=== PATIENT | female | born 2000 | race African-American/Black ===

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

== ENCOUNTER 2023-01-17 21:02 | Emergency (ER) | payer SELFPAY ==
--- OUTSIDE RECORDS SUMMARY | 2023-01-17 21:05 | XMS REPORT | Continuity of Care Document ---
:2000 Author Organization [facility] t Address [address] [facility] [address] [place] [id number] Care Team Providers Name Role Phone Rolf Cancino Primary Care Physician Unavailable STEPHY WIGGINS Attending Clinician Unavailable Stephy Wiggins MD Attending Clinician ENA ROWE Attending Clinician Unavailable Hodan Mabry RN Attending Clinician Unavailable Ena Rowe PA-C Attending Clinician Nurse, [facility] Attending Clinician Unavailable Payers Payer Name Policy Type Policy Number Effective Date Expiration Date Sb CISNEROS [id number] 2020 HEALTH 00:00:00 Problems Condition Condition Condition Status Onset Resolution Last Treating Co mments Source Name Details Category Date Date Treatment Clinician Date Well woman Well woman Disease Active U nivers exam (no exam (no 10-15 ity of [place] exam[place] van[place] exam[place] 00 [facility] Nexplanon Nexplanon Disease Active Uni vers in place in place 10-15 ity of 00:00: [place] 00 [facility] Allergies, Adverse Reactions, Alerts Allergy Allergy Status Severity Reaction(s) Onset Inactive Treating Comm ents Source Name Type Date Date Clinician NO KNOWN Drug Active Univers ALLERGIE Class ity of S [facility] Social History Social Habit Start Date Stop Date Quantity Comments Source Gender identity Universit y [facility] Sexual orientation Univer sity of [facility] History of tobacco Passive smoker Un iversity of use [facility] Alcohol Comment 2022-11-28 2022-11-28 quit Universit y of 00:00:00 00:00:00 [facility] Exposure to 2022-06-23 2022-07-03 Not sure University SARS-CoV-2 (event) 00:00:00 11:46:00 [facility] History of Social 2021-11-22 2021-11-22 Univers ity of function 00:00:00 00:00:00 [facility] Tobacco use and 2020-10-15 2020-10-15 Smokeless Universit y of exposure 00:00:00 00:00:00 tobacco non-user [facility] Alcohol intake 2020-10-15 2020-10-15 Ex-drinker [facility] 00:00:00 00:00:00 (finding) [facility] Sex Assigned At 2000 2002 Universit y of 00:00:00 00:00:00 [facility] Smoking Status Start Date Stop Date Source Never smoked tobacco [facility] Medications Ordered Filled Start Stop Current Ordering Indication Dosage Frequency Signature Comments Components Source Medication Medication Date Date Medication? Clinician (SIG) Name Name metroNIDAZO 2022- Yes [id number] 500mg Take 1 Univers LE (FLAGYL) 8- 08-25 tablet by it y of 500 mg 00:00: 04:59 mouth in [place] tablet 00 :00 the Medical morning Branch and 1 tablet in the evening. Do all this for 7 days. metroNIDAZO 0 Yes [id number] 500mg Take 1 Univers LE 500 mg 3-21 tablet by ity o f tablet 00:00: mouth [place] 00 every 12 Medical (twelve) Branch hours. metroNIDAZO 2022-0 Yes [id number] 500mg Take 1 Univers LE 500 mg 3-21 tablet by ity o f tablet 00:00: mouth [place] 00 every 12 Medical (twelve) Branch hours. metroNIDAZO 2022-0 Yes [id number] 500mg Take 1 Univers LE 500 mg 3-21 tablet by ity o f tablet 00:00: mouth [place] 00 every 12 Medical (twelve) Branch hours. metroNIDAZO 2022-0 Yes [id number] 500mg Take 1 Univers LE 500 mg 3-21 tablet by ity o f tablet 00:00: mouth [place] 00 every 12 Medical (twelve) Branch hours. metroNIDAZO 2022-0 Yes [id number] 500mg Take 1 Univers LE 500 mg 3-21 tablet by ity o f tablet 00:00: mouth [place] 00 every 12 Medical (twelve) Branch hours. metroNIDAZO 2022-0 Yes [id number] 500mg Take 1 Univers LE 500 mg 3-21 tablet by ity o f tablet 00:00: mouth [place] 00 every 12 Medical (twelve) Branch hours. fluconazole 2022-0 2022- No [id number] 150mg Take 1 Univers 150 mg 3-21 03-22 tablet by [place] of tablet 00:00[place] 04[place]59 [place] now for 1 Medical dose. Branch Dose 2021-0 No 500 Unknown 11-29 00:00: 00 Dose 2021-0 No 600 Unknown 11-29 00:00: 00 doxycycline 2021-0 Yes [id number] 100mg Take 1 Univers hyclate 100 8-10 tablet by [place] mg [place] and 1 tablet in the evening. doxycycline 2021-0 Yes [id number] 100mg Take 1 Univers hyclate 100 8-10 tablet by [place] of mg tablet [place] and 1 tablet in the evening. doxycycline 2021-0 Yes [id number] 100mg Take 1 Univers hyclate 100 8-10 tablet by [place] of mg tablet [place] [facility] and 1 tablet in the evening. doxycycline 2021-0 Yes [id number] 100mg Take 1 Univers hyclate 100 8-10 tablet by [place] of mg tablet [place] [facility] and 1 tablet in the evening. doxycycline 2021-0 Yes [id number] 100mg Take 1 Univers hyclate 100 8-10 tablet by [place] of mg tablet [place] [facility] and 1 tablet in the evening. doxycycline 2021-0 2022- No [id number] 100mg Take 1 Univers hyclate 100 8-10 03-20 tablet by it y of mg tablet 00:00: 00:00 mouth [place] 00 :00 the Medical morning Branch and 1 tablet in the evening. doxycycline 2021-0 2023- No [id number] 100mg Take 1 Univers hyclate 100 8-10 03-20 tablet by it y of mg tablet 00:00: 00:00 mouth in [place] 00 :00 the Medical morning Branch and 1 tablet in the evening. doxycycline 2-0 3- No [id number] 100mg Take 1 Univers hyclate 100 8-10 03-20 tablet by it y of mg tablet 00:00: 00:00 mouth in [place] 00 :00 the Medical morning Branch and 1 tablet in the evening. doxycycline 2-0 3- No [id number] 100mg Take 1 Univers hyclate 100 8-10 03-20 tablet by it y of mg tablet 00:00: 00:00 mouth [place] 00 :00 the Medical morning Branch and 1 tablet in the evening. Nexplanon 2022-0 No 1mg 68 mg 6-28 subdermal 00:00: implant 00 Dose 2-0 No Unknown 6-28 00:00: 00 Nexplanon 2022-0 No 1mg 68 mg 6-28 subdermal 00:00: implant 00 Dose 2-0 No Unknown 6-28 00:00: 00 TAKE 1 2-0 No TABLET BY 6-28 MOUTH EVERY 00:00: 6 HOURS 00 NEEDED FOR PAIN Dose 2-0 No Unknown 6-28 00:00: 00 Dose 2-0 No Unknown 6-28 00:00: 00 TAKE 1 2-0 No TABLET BY 6-28 MOUTH EVERY 00:00: 6 HOURS 00 NEEDED FOR PAIN TAKE 1 2-0 No TABLET BY 6-28 MOUTH EVERY 00:00: 6 HOURS 00 NEEDED FOR PAIN Dose 2-0 No Unknown 6-28 00:00: 00 Dose 2022-0 No Unknown 6-28 00:00: 00 TAKE 1 2-0 No TABLET BY 6-28 MOUTH EVERY 00:00: 6 HOURS 00 NEEDED FOR PAIN TAKE 1 2-0 No TABLET BY 6-24 MOUTH EVERY 00:00: 6 HOURS 00 NEEDED FOR PAIN Dose 2-0 No Unknown 6-24 00:00: 00 TAKE 1 2022-0 No TABLET BY 6-24 MOUTH EVERY 00:00: 6 HOURS 00 NEEDED FOR PAIN Dose 2-0 No Unknown 6-24 00:00: 00 TAKE 1 2022-0 No TABLET BY 6-21 MOUTH EVERY 00:00: 6 HOURS 00 NEEDED FOR PAIN TAKE 1 2021-0 No CAPSULE BY 6-21 MOUTH THREE 00:00: TIMES DAILY 00 TAKE 1 2021-0 No TABLET BY 6-21 MOUTH EVERY 00:00: 6 HOURS 00 NEEDED FOR PAIN TAKE 1 2021-0 No CAPSULE BY 6-21 MOUTH THREE 00:00: TIMES DAILY 00 amoxicillin 2020-0 No 1mg 875 mg 3-12 tablet 00:00: 00 amoxicillin 2020-0 No 1mg 875 mg 3-12 tablet 00:00: 00 ibuprofen 2019-1 No 1mg 600 mg 1-20 tablet 00:00: 00 ibuprofen 2019-1 No 1mg 600 mg 1-20 tablet 00:00: 00 Nexplanon 2019-0 No 1mg 68 mg 6-17 subdermal 00:00: implant 00 Nexplanon 2019-0 No 1mg 68 mg 6-17 subdermal 00:00: implant 00 Immunizations Ordered Filled Date Status Comments Source Immunization Name Immunization Name HPV9 2022-05-25 Completed University of 00:00:00 [facility] HPV9 2022-05-25 Completed University of 00:00:00 [facility] HPV9 2022-05-25 Completed University of 00:00:00 [facility] HPV9 2022-05-25 Completed University of 00:00:00 [facility] HPV9 2022-05-25 Completed University of 00:00:00 [facility] HPV9 2022-05-25 Completed University of 00:00:00 [facility] HPV9 2022-05-25 Completed University of 00:00:00 [facility] HPV9 2022-05-25 Completed University of 00:00:00 [facility] HPV9 2022-01-26 Completed University of 00:00:00 [facility] HPV9 2022-01-26 Completed University of 00:00:00 [facility] HPV9 2022-01-26 Completed University of 00:00:00 [facility] HPV9 2022-01-26 Completed University of 00:00:00 [facility] HPV9 2022-01-26 Completed University of 00:00:00 [facility] HPV9 2022-01-26 Completed University of 00:00:00 [facility] HPV9 2022-01-26 Completed University of 00:00:00 [facility] HPV9 2022-01-26 Completed University of 00:00:00 [facility] HPV9 2022-01-26 Completed University of 00:00:00 [facility] HPV9 2022-01-26 Completed University of 00:00:00 [facility] HPV9 2022-01-26 Completed University of 00:00:00 [facility] HPV9 2021-11-22 Completed University of 00:00:00 [facility] HPV9 2021-11-22 Completed University of 00:00:00 [facility] HPV9 2021-11-22 Completed University of 00:00:00 [facility] HPV9 2021-11-22 Completed University of 00:00:00 [facility] HPV9 2021-11-22 Completed University of 00:00:00 [facility] HPV9 2021-11-22 Completed University of 00:00:00 [facility] HPV9 2021-11-22 Completed University of 00:00:00 [facility] HPV9 2021-11-22 Completed University of 00:00:00 [facility] HPV9 2021-11-22 Completed University of 00:00:00 [facility] HPV9 2021-11-22 Completed University of 00:00:00 [facility] HPV9 2021-11-22 Completed University of 00:00:00 [facility] HPV9 2021-11-22 Completed University of 00:00:00 [facility] HPV9 Unknown Completed [facility] HPV9 Unknown Completed [facility] HPV9 Unknown Completed [facility] HPV9 Unknown Completed [facility] HPV9 Unknown Completed [facility] HPV9 Unknown Completed [facility] HPV9 Unknown Completed [facility] HPV9 Unknown Completed [facility] HPV9 Unknown Completed [facility] HPV9 Unknown Completed [facility] HPV9 Unknown Completed [facility] Vital Signs Vital Name Observation Time Observation Value Comments Source Systolic blood 2022-11-28 14:26:00 116 mm[Hg] Univer sity of pressure [facility] Diastolic blood 2022-11-28 14:26:00 79 mm[Hg] Unive rsity of pressure [facility] Heart rate 2022-11-28 14:26:00 71 /min Universi ty [facility] Body temperature 2022-11-28 14:26:00 36.67 Betty [facility] [place] [facility] Body height 2022-11-28 14:26:00 167.6 cm [facility] [place] [facility] Body weight 2022-11-28 14:26:00 53.162 kg [facility] [place] [facility] BMI 2022-11-28 14:26:00 18.92 kg/m2 [facility] [place] [facility] Systolic blood 2022-07-04 14:52:00 117 mm[Hg] Univer sity of pressure [place] [facility] Diastolic blood 2022-07-04 14:52:00 80 mm[Hg] Unive rsity of pressure [place] [facility] Heart rate 2022-07-04 14:52:00 78 /min [facility] [place] [facility] Body temperature 2022-07-04 14:52:00 36.72 Betty [facility] [place] [facility] Respiratory rate 2022-07-04 14:52:00 18 /min Univ [facility] [place] [facility] Body height 2022-07-04 14:52:00 167.6 cm [facility] [place] [facility] Systolic blood 2022-05-25 14:10:00 114 mm[Hg] Univer sity of pressure [place] [facility] Diastolic blood 2022-05-25 14:10:00 72 mm[Hg] Unive rsity of pressure [place] [facility] Heart rate 2022-05-25 14:10:00 70 /min [facility] [place] [facility] Body temperature 2022-05-25 14:10:00 36.78 Betty [facility] [place] [facility] Body height 2022-05-25 14:10:00 167.6 cm [facility] [place] [facility] Body weight 2022-05-25 14:10:00 55.702 kg [facility] [place] [facility] BMI 2022-05-25 14:10:00 19.82 kg/m2 [facility] [place] [facility] Systolic blood 2022-02-02 16:28:00 119 mm[Hg] Univer sity of pressure [place] [facility] Diastolic blood 2022-02-02 16:28:00 80 mm[Hg] Unive rsity of pressure [place] [facility] Heart rate 2022-02-02 16:28:00 70 /min [facility] [place] [facility] Body temperature 2022-02-02 16:28:00 36.72 Betty Univ ersity of [facility] Respiratory rate 2022-02-02 16:28:00 18 /min Univ [facility] [place] [facility] [place] Body height 2022-02-02 16:28:00 167.6 cm [facility] [place] [facility] [place] Body weight 2022-02-02 16:28:00 59.784 kg [facility] [place] [facility] [place] BMI 2022-02-02 16:28:00 21.27 kg/m2 Universi ty [facility] Systolic blood 2022-01-26 18:42:00 112 mm[Hg] Univer sity of [facility] [place] [facility] Diastolic blood 2022-01-26 18:42:00 73 mm[Hg] Unive rsity of pressure [facility] Heart rate 2022-01-26 18:42:00 65 /min [facility] [place] [facility] [place] Body temperature 2022-01-26 18:42:00 36.83 Betty [facility] Res[facility] rate 2022-01-26 18:42:00 16 /min [facility] [place] Body height 2022-01-26 18:42:00 167.6 cm [facility] [place] [facility] Body weight 2022-01-26 18:42:00 59.512 kg Universi ty [facility] [place] BMI 2022-01-26 18:42:00 21.18 kg/m2 Universi ty [facility] BP Systolic 2021-10-12 11:33:00 126 mm[Hg] BP Diastolic 2021-10-12 11:33:00 85 mm[Hg] Weight Measured 2021-10-12 11:33:00 131.40 pounds Height Measured 2021-10-12 11:33:00 66.54 inches Body Temperature 2021-10-12 11:33:00 98.20 degrees Heart Rate 2021-10-12 11:33:00 77.00 /min Respiratory Rate 2021-10-12 11:33:00 18.00 /min BP Systolic 2021-10-05 14:45:00 115 mm[Hg] BP Diastolic 2021-10-05 14:45:00 74 mm[Hg] Weight Measured 2021-10-05 14:45:00 129.80 pounds Height Measured 2021-10-05 14:45:00 66.54 inches Body Temperature 2021-10-05 14:45:00 98.40 degrees Heart Rate 2021-10-05 14:45:00 76.00 /min Respiratory Rate 2021-10-05 14:45:00 18.00 /min BP Systolic 2021-03-19 09:08:00 BP Diastolic 2021-03-19 09:08:00 Weight Measured 2021-03-19 09:08:00 135.00 pounds Height Measured 2021-03-19 09:08:00 66.54 inches Body Temperature 2021-03-19 09:08:00 Heart Rate 2021-03-19 09:08:00 Respiratory Rate 2021-03-19 09:08:00 BP Systolic 2019-06-27 13:02:00 114 mm[Hg] BP Diastolic 2019-06-27 13:02:00 82 mm[Hg] Weight Measured 2019-06-27 13:02:00 130.20 pounds Height Measured 2019-06-27 13:02:00 66.54 inches Body Temperature 2019-06-27 13:02:00 98.90 degrees Heart Rate 2019-06-27 13:02:00 100.00 /min Respiratory Rate 2019-06-27 13:02:00 16.00 /min BP Systolic 2019-03-25 13:49:00 120 mm[Hg] BP Diastolic 2019-03-25 13:49:00 78 mm[Hg] Weight Measured 2019-03-25 13:49:00 131.80 pounds Height Measured 2019-03-25 13:49:00 65.00 inches Body Temperature 2019-03-25 13:49:00 98.10 degrees Heart Rate 2019-03-25 13:49:00 77.00 /min Respiratory Rate 2019-03-25 13:49:00 17.00 /min BP Systolic 2019-03-06 16:59:00 113 mm[Hg] BP Diastolic 2019-03-06 16:59:00 80 mm[Hg] Weight Measured 2019-03-06 16:59:00 133.40 pounds Height Measured 2019-03-06 16:59:00 65.00 inches Body Temperature 2019-03-06 16:59:00 98.30 degrees Heart Rate 2019-03-06 16:59:00 85.00 /min Respiratory Rate 2019-03-06 16:59:00 16.00 /min BP Systolic 2018-10-01 10:09:00 102 mm[Hg] BP Diastolic 2018-10-01 10:09:00 73 mm[Hg] Weight Measured 2018-10-01 10:09:00 135.40 pounds Height Measured 2018-10-01 10:09:00 65.35 inches Body Temperature 2018-10-01 10:09:00 97.60 degrees Heart Rate 2018-10-01 10:09:00 75.00 /min Respiratory Rate 2018-10-01 10:09:00 16.00 /min BP Systolic 2018-09-24 16:11:00 104 mm[Hg] BP Diastolic 2018-09-24 16:11:00 70 mm[Hg] Weight Measured 2018-09-24 16:11:00 135.80 pounds Height Measured 2018-09-24 16:11:00 65.35 inches Body Temperature 2018-09-24 16:11:00 97.90 degrees Heart Rate 2018-09-24 16:11:00 81.00 /min Respiratory Rate 2018-09-24 16:11:00 16.00 /min BP Systolic 2018-06-08 16:11:00 107 mm[Hg] BP Diastolic 2018-06-08 16:11:00 71 mm[Hg] Weight Measured 2018-06-08 16:11:00 135.40 pounds Height Measured 2018-06-08 16:11:00 65.35 inches Body Temperature 2018-06-08 16:11:00 98.20 degrees Heart Rate 2018-06-08 16:11:00 82.00 /min Respiratory Rate 2018-06-08 16:11:00 16.00 /min BP Systolic 2018-05-28 15:25:00 107 mm[Hg] BP Diastolic 2018-05-28 15:25:00 73 mm[Hg] Weight Measured 2018-05-28 15:25:00 133.00 pounds Height Measured 2018-05-28 15:25:00 65.35 inches Body Temperature 2018-05-28 15:25:00 99.50 degrees Heart Rate 2018-05-28 15:25:00 75.00 /min Respiratory Rate 2018-05-28 15:25:00 16.00 /min Procedures Procedure Date / Time Performed Performing Clinician Sourc e POCT URINALYSIS W/O 2022-07-04 00:00:00 Ena Rowe [facility] GARDASIL 9 (HPV 9V) 2022-05-25 14:12:46 Ike Wigginsen [facility] GARDASIL 9 (HPV 9V) 2022-01-26 18:59:55 Oneal Stephy [facility] Plan of Care Planned Activity Planned Date Details Comments Source Goal Plan of Care Note [code = 88347-7] Goal Plan of Care Note [code = 98003-7] Goal Plan of Care Note [code = 51740-7] Goal Plan of Care Note [code = 35742-8] Goal Plan of Care Note [code = 07039-5] Goal Plan of Care Note [code = 67781-6] Goal Plan of Care Note [code = 69907-9] Goal Plan of Care Note [code = 95471-3] Goal Plan of Care Note [code = 04775-8] Goal Plan of Care Note [code = 34867-7] Goal Plan of Care Note [code = 17471-9] Goal Plan of Care Note [code = 26601-4] Goal Plan of Care Note [code = 59513-8] Goal Plan of Care Note [code = 82124-3] Goal Plan of Care Note [code = 98375-8] Goal Plan of Care Note [code = 51723-4] Goal Plan of Care Note [code = 72452-8] Goal Plan of Care Note [code = 04156-2] Goal Plan of Care Note [code = 00712-4] Goal Plan of Care Note [code = 53845-4] Goal Plan of Care Note [code = 87749-7] Goal Plan of Care Note [code = 30281-3] Goal Plan of Care Note [code = 41131-5] Goal Plan of Care Note [code = 77599-0] Goal Plan of Care Note [code = 90723-4] Goal Plan of Care Note [code = 66401-4] Goal Plan of Care Note [code = 45518-4] Goal Plan of Care Note [code = 70554-6] Goal Plan of Care Note [code = 00977-8] Goal Plan of Care Note [code = 05551-0] Goal Plan of Care Note [code = 98570-4] Goal Plan of Care Note [code = 40587-5] Goal Plan of Care Note [code = 74887-3] Goal Plan of Care Note [code = 87890-6] Goal Plan of Care Note [code = 20783-6] Goal Plan of Care Note [code = 30989-2] Goal Plan of Care Note [code = 78504-4] Goal Plan of Care Note [code = 22942-6] Encounters Start End Encounter Admission Attending Care Care Encounter Source Date/Time Date/Time Type Type Clinicians Facility Department ID 2022-12-19 2022-12-19 Outpatient S[facility] [id number] Tk 15:01:26 15:01:26 0904 F Neftaly 2022-12-01 2022-12-01 Case Ike Wigginsen [facility] [id number] Univers 00:00:00 00:00:00 Management Romulo FUENTES [id number] ity of [facility] [id number] [id number] Mt dical NAL [address] [place] [address] 2022-11-28 2022-11-28 Outpatient R WIGGINSIKEEN [facility] [id number] Univers 09:30:00 09:38:27 ity of [facility] 2022-11-28 2022-11-28 Office Stephy Wiggins [facility] [id number] Univers 09:30:00 09:38:27 Visit Romulo FUENTES [id number] i ty of [facility] [id number] [id number] Mt dical NAL [address] [place] [address] 2022-07-06 2022-07-06 Patient Clotilde [facility] [id number] Univers 00:00:00 00:00:00 Secure Msg Hodan OLMOS 350.1.13.10 [place] [facility] [id number] [address] 2022-07-05 2022-07-05 Case Adama [facility] [id number] Univers 00:00:00 00:00:00 Management Ena FUENTES 350.1.13.10 ity of [place] [id number] Mt dic[address] 2022-07-05 2022-07-05 Patient Adama [facility] [id number] Univers 00:00:00 00:00:00 Secure Msg Ena FUENTES 350.1.13.10 ity of [facility] [place] [id number] [address] 2022-07-04 2022-07-04 Outpatient R ADAMA [facility] [id number] Univers 10:00:00 10:53:46 ENA tidwell [facility] 2022-07-04 2022-07-04 Office Adama [facility] [id number] Univers 10:00:00 10:53:46 Visit Ena FUENTES 350.1.13.10 i ty of [facility] [place] [id number] [address] 2022-07-04 2022-07-04 Patient Adama [facility] [id number] Univers 00:00:00 00:00:00 Secure Msg Ena FUENTES 350.1.13.10 ity of [facility] [id number] [id number] Mt dic[address] 2022-05-25 2022-05-25 Nurse Nurse, [facility] [id number] Univers 08:00:00 08:15:00 Visit AriasEna thomas 350.1.13.10 ity of [facility] 4[place] [id number] [address] 2022-05-25 2022-05-25 Outpatient R ADAMA [facility] [id number] Univers 08:00:00 08:00:00 ENA tidwell [facility] 2022-05-252022-05-25 Outpatient R [facility] [id number] Univers 08:00:00 08:00:00 diann [facility] 2022-02-02 2022-02-02 Office Adama [facility] [id number] Univers 13:00:00 13:00:00 Visit Ena FUENTES 350.1.13.10 i ty [facility] 4[place] [id number] Mt dical [address] 2022-02-02 2022-02-02 [facility] [id number] Univers 13:00:00 11:48:47 ENA tidwell [facility] 2022-02-01 2022-02-01 Patient Stephy Wiggins [facility] [id number] Univers 00:00:00 00:00:00 Secure Msg Romulo FUENTES 350.1.13.10 ity [facility] 4[place] [id number] Mt dic[address] 2022-01-26 2022-01-26 [facility] [id number] Univers 14:00:00 14:00:00 ENA tidwell [facility] 2022-01-26 2022-01-26 Nurse Nurse, [facility] [id number] Univers 14:00:00 14:00:00 Visit Ena Rowe 350.1.13.10 itcandido [facility] 4[place] [id number] Mt dical NAL [address] [place] [address] 2022-01-24 2022-01-24 Outpatient R [facility] [id number] Univers 08:00:00 [facility] 2021-11-29 Outpatient [id number] 00:00:00 00:00:00 Visit [id number] 2021-11-25 2021-11-25 Patient Stephy Wiggins [facility] [id number] Univers 00:00:00 00:00:00 Secure Msg Cam [place] [id number] ity [place] [id number] Mt dical NAL [address] [place] [address] 2021-11-25 2021-11-25 Telephone Stephy Wiggins [facility] [id number] Univers 00:00:00 00:00:00 Cam [place] [id number] [id number] [phone] Mt dical NAL [address] [place] [address] 2021-11-24 2021-11-24 Patient Stephy Wiggins [facility] [id number] Univers 00:00:00 00:00:00 Secure Msg Cam [place] [id number] [id number] [phone] Mt dical NAL [address] [place] [address] 2021-11-24 2021-11-24 Case Adama [facility] [id number] Univers 00:00:00 00:00:00 Management Ena [place] [id number] [id number] [phone] Mt dical NAL [address] [place] [address] 2021-11-23 2021-11-23 Patient Stephy Wiggins [facility] [id number] Univers 00:00:00 00:00:00 Secure Msg Cam [place] [id number] [id number] [phone] Mt dical NAL [address] [place] [address] 2021-11-22 2021-11-22 Outpatient R WIGGINSSTEPHY [facility] [id number] Univers 08:00:00 09:06:55 ity of [facility] 2021-11-22 2021-11-22 Office Stephy Wiggins [facility] [id number] Univers 08:00:00 09:06:55 Visit Romulo FUENT[place] [id number] i ty [facility] [id number] [phone] Mt dical NAL [address] [place] [address] 2021-10-12 2021-10-12 Outpatient [id number] 00:00:00 00:00:00 Visit [id number] 2021-01-20 2021-01-20 Office Ena Rowe [facility] [id number] Univers 14:16:03 14:52:14 Visit Stephy Wiggins [id number] ity [facility] [id number] [phone] Mt dicmi nal [address] [place] [address] 2021-01-20 2021-01-20 Outpatient R STEPHY WIGGINS [facility] [id number] Univers 14:30:00 14:30:00 ity [facility] 2021-01-14 2021-01-14 Patient Stephy Wiggins [facility] [id number] Univers 00:00:00 00:00:00 Secure Msg Romulo [place] [id number] ity [facility] [id number] [phone] Mt dic[address] 2020-10-15 2020-10-15 Outpatient R STEPHY WIGGINS [facility] [id number] Univers 13:30[facility]00 [facility]30[facility] Test Description Test Time Test Comments Results Result Comments Source POCT URINALYSIS W/O SPECIFIC GRAVITY 2022-07-04 15:16:00 Test Item Value Reference Range Interpretation Comme nts POCT PH U (test code = 3254) 7 mg/dl 5-8 POCT U LEUK EST (test code = 3263) neg Negative - Negative POCT U NIT (test code = 3262) neg Negative - Negative POCT U PROT (test code = 3259) trace Negative - Negative POCT U GLU (test code = 3256) neg Negative - Negative POCT U KETONE (test code = 3258) + Negative - Negative POCT U BLD (test code = 3257) neg Negative - [facility] SPECIFIC [id number] 15:16:00 Test Item Value Reference Range Interpretation Comments POCT PH U (test code = 3254) 7 mg/dl 5-8 POCT U LEUK EST (test code = neg Negative - Negative 3263) POCT U NIT (test code = 3262) neg Negative - Negative POCT U PROT (test code = 3259) trace Negative - Negative POCT U GLU (test code = 3256) neg Negative - Negative POCT U KETONE (test code = 3258) + Negative - Negative POCT U BLD (test code = 3257) neg Negative - Negative [facility]
[2023-01-17 21:44] LABS: Specific Gravity > 1.030 (1.005-1.030)
[2023-01-17 21:46] LABS: Specific Gravity > 1.030 (1.005-1.030); Urine Bacteria None Seen /HPF (<20); Urine Bilirubin NEGATIVE (Negative); Urine Blood Negative (Negative); Urine Clarity Clear (Clear); Urine Color Light-Yellow (Yellow); Urine Glucose NEGATIVE (Negative); Urine Mucus Slight /HPF (None Seen); Urine Protein TRACE (Negative); Urine RBC <5 /HPF (None Seen); Urine Urobilinogen Normal (Normal)
--- NOTE | 2023-01-17 22:23 | ER ---
Nurse's Notes [facility] [place], [place] Name: Digna Gonzalez Age: 22 yrs Sex: Female : 2000 Arrival Date: 01/17/2023 Time: 21:02 Bed 8 Private MD: Diagnosis: Other malaise Presentation: 01/17 21:15 Chief complaint: Patient states: nausea, body aches and "feeling hot" X1 week. No other pf1 symptoms. Coronavirus screen: Vaccine status: Patient reports being unvaccinated. Client denies travel out of the [place] in the last 14 days. Ebola Screen: Patient denies travel to an Ebola-affected area in the 21 days before illness onset. No symptoms or risks identified at this time. Initial Sepsis Screen: Does the patient meet any 2 criteria? No. Patient's initial sepsis screen is negative. Does the patient have a suspected source of infection? No. Patient's initial sepsis screen is negative. Risk Assessment: Do you want to hurt yourself or someone else? Patient reports no desire to harm self or others. Onset of symptoms was January 17, 2023. 21:15 Method Of Arrival: Ambulatory pf1 21:15 Acuity: BALTAZAR 4 pf1 Triage Assessment: 21:16 General: Appears in no apparent distress. comfortable, Behavior is calm, cooperative. pf1 Pain: Denies pain. EENT: No deficits noted. No signs and/or symptoms were reported regarding the EENT system. Neuro: No deficits noted. Level of Consciousness is awake, alert, obeys commands, Oriented to person, place, time, situation. Cardiovascular: No deficits noted. Respiratory: No deficits noted. Airway is patent Respiratory effort is even, unlabored, Respiratory pattern is regular, symmetrical. GI: Reports nausea. : No deficits noted. No signs and/or symptoms were reported regarding the genitourinary system. Historical: - Allergies: 21:16 No Known Allergies; pf1 - Home Meds: 21:16 None [Active]; pf1 - PMHx: 21:16 None; pf1 - PSHx: 21:16 None; pf1 - Immunization history:: Adult Immunizations unknown. - Social history:: Smoking status: Patient denies any tobacco usage or history of. Screenin:00 [facility] ED Fall Risk Assessment (Adult) History of falling in the last 3 months, rv including since admission No falls in past 3 months (0 pts) Score/Fall Risk Level 0 - 2 = Low Risk Oriented to surroundings, Maintained a safe environment, Educated pt \\T\\ family on fall prevention, incl call for assistance when getting out of bed, Assessed \\T\\ reinforced patient's understanding of fall precautions, Provided non-skid footwear, Hourly rounding (assess needs \\T\\ fall precautionary measures) done, Used ambulatory aids as needed (educated on \\T\\ assisted with), Used gait belt as appropriate. 22:00 Abuse screen: Denies threats or abuse. Denies injuries from another. Nutritional rv screening: No deficits noted. Tuberculosis screening: No symptoms or risk factors identified. Assessment: 22:00 General: Appears comfortable, Behavior is calm, cooperative. rv 22:00 Pain: Denies pain. Neuro: Level of Consciousness is awake, alert, obeys commands, rv Oriented to person, place, time, situation. Cardiovascular: Capillary refill < 3 seconds Patient's skin is warm and dry. Respiratory: Airway is patent Respiratory effort is even, unlabored. GI: No signs and/or symptoms were reported involving the gastrointestinal system. GI: Abdomen is flat, non-distended. Vital Signs: 21:15 BP 134 / 92; Pulse 80; Resp 16; Temp 98.6; Pulse Ox 100% ; Weight 59.42 kg; Height 5 pf1 ft. 6 in. ; Pain 0/10; 22:29 BP 121 / 86; Pulse 76; Resp 16; Temp 98; Pulse Ox 100% on R/A; rv 21:15 Body Mass Index 21.14 (59.42 kg, 167.64 cm) pf1 21:15 Pain Scale: Adult pf1 [place] Coma Score: 22:29 Eye Response: spontaneous(4). Motor Response: obeys commands(6). Verbal Response: rv oriented(5). Total: 15. ED Course: 21:04 Patient arrived in ED. jj6 21:09 Claudia Oliver MD is Attending Physician. sp3 21:13 [facility]ano [facility]C [facility] kb 21:16 Triage completed. pf1 21:16 Arm band placed on Patient placed in an exam room, on a stretcher. pf1 21:18 Eulogio Reza, RN is Primary Nurse. bp 22:00 Placed in gown. Client placed on continuous cardiac and pulse oximetry monitoring. NIBP rv monitoring applied. 22:00 No provider procedures requiring assistance completed. Patient did not have IV access rv during this emergency room visit. Administered Medications: No medications were administered Medication: 22:30 VIS not applicable for this client. rv Outcome: 22:00 Discharged to home ambulatory, rv 22:00 Condition: good 22:00 Discharge instructions given to patient, Instructed on discharge instructions, follow up and referral plans. Demonstrated understanding of instructions, follow-up care, 22:23 Discharge ordered by . kb 22:31 Patient left the ED. rv Signatures: Maryann Pisano, LISA-C LISA-Eulogio Charlton, RN RN bp Mitch Mao RN RN rv Claudia Oliver MD MD sp3 Marie Streeter6 Vilma Parrish RN RN pf1
--- NOTE | 2023-01-17 22:24 | EDPHYS ---
Physician Documentation [facility] Name: Digna Gonzalez Age: 22 yrs Sex: Female : 2000 Arrival Date: 01/17/2023 Time: 21:02 Bed 8 Private MD: ED Physician Claudia Oliver HPI: 01/17 21:30 This 22 yrs old Black Female presents to ER via Ambulatory with complaints of Nausea, kb Chills, Body Aches. 21:30 The patient presents to the emergency department with nausea. Onset: The kb symptoms/episode began/occurred 1 week(s) ago. Possible causes: unknown. The symptoms are aggravated by nothing. The symptoms are alleviated by nothing. Associated signs and symptoms: The patient has no apparent associated signs or symptoms. Severity of symptoms: At their worst the symptoms were mild in the emergency department the symptoms are unchanged. The patient has not experienced similar symptoms in the past. The patient has not recently seen a physician. Pt reports chills, bodyaches, "feeling hot" and nausea for one week. Denies cough, congestion, vomiting, abd pain, urinary symptoms. Historical: - Allergies: 21:16 No Known Allergies; pf1 - Home Meds: 21:16 None [Active]; pf1 - PMHx: 21:16 None; pf1 - PSHx: 21:16 None; pf1 - Immunization history:: Adult Immunizations unknown. - Social history:: Smoking status: Patient denies any tobacco usage or history of. ROS: 21:29 Respiratory: Negative for shortness of breath, cough, wheezing, and pleuritic chest kb pain, 21:29 Constitutional: Positive for body aches, chills, 21:29 Abdomen/GI: Positive for nausea, 21:29 All other systems are negative, Exam: 21:29 Constitutional: This is a well developed, well nourished patient who is awake, alert, kb and in no acute distress. Head/Face: Normocephalic, atraumatic. ENT: Moist Mucous membranes Cardiovascular: Regular rate Respiratory: Respirations even and unlabored. No increased work of breathing. Talking in full sentences Abdomen/GI: Soft, non-tender. No distention Skin: Warm, dry with normal turgor. Normal color. MS/ Extremity: Pulses equal, no cyanosis. Neurovascular intact. Full, normal range of motion. Neuro: Awake and alert, GCS 15, oriented to person, place, time, and situation. Moves all extremities. Normal gait. Vital Signs: 21:15 BP 134 / 92; Pulse 80; Resp 16; Temp 98.6; Pulse Ox 100% ; Weight 59.42 kg; Height 5 pf1 ft. 6 in. ; Pain 0/10; 22:29 BP 121 / 86; Pulse 76; Resp 16; Temp 98; Pulse Ox 100% on R/A; rv 21:15 Body Mass Index 21.14 (59.42 kg, 167.64 cm) pf1 21:15 Pain Scale: Adult pf1 [place] Coma Score: 22:29 Eye Response: spontaneous(4). Motor Response: obeys commands(6). Verbal Response: rv oriented(5). Total: 15. MDM: 21:13 Patient medically screened. kb 21:30 Data reviewed: vital signs, nurses notes. kb 21:31 Differential diagnosis: flu, covid, viral illness, uri, . kb 22:23 Counseling: I had a detailed discussion with the patient and/or guardian regarding the kb historical points, exam findings, and any diagnostic results supporting the discharge/admit diagnosis, lab results, the need for outpatient follow up, a family practitioner, to return to the emergency department if symptoms worsen or persist or if there are any questions or concerns that arise at home. 01/17 21:17 Order name: Flu; Complete Time: 22:09 kb 01/17 21:17 Order name: Test, Urine; Complete Time: 21:48 kb 01/17 21:17 Order name: Urinalysis w/ reflexes; Complete Time: 21:48 kb 01/17 21:42 Order name: SARS-COV-2 RT PCR; Complete Time: 22:22 EDMS Administered Medications: No medications were administered Disposition Summary: 01/17/23 22:23 Discharge Ordered Notes: Location: Home kb Condition: Stable kb Diagnosis - Other malaise kb Followup: kb - With: Emergency Department - When: As needed - Reason: Worsening of condition Followup: kb - With: Private Physician - When: 2 - 3 days - Reason: Recheck today's complaints, Continuance of care, Re-evaluation by your physician Discharge Instructions: - Discharge Summary Sheet kb - Viral Illness, Adult kb Forms: - Medication Reconciliation Form kb - Thank You Letter kb - Antibiotic Education kb - Prescription Opioid Use kb - Patient Portal Instructions kb - Leadership Thank You Letter kb Signatures: Dispatcher [employer] EDMaryann Cuadra FNP-C FNP-Vilma Coreas, RN RN pf1 Corrections: (The following items were deleted from the chart) 21:40 21:17 SARS-COV-2 Antigen Rapid+I.LAB.BRZ ordered. EDMS EDMS
[2023-01-17 22:35] VITALS: O2SAT 100
[2023-01-17 22:37] VITALS: BP 121/86; TEMP 98
== END 2023-01-17 22:31 | disposition home or self-care (01) ==
LOC: ER 21:02
DX: R53.81 Other malaise (principal); R11.0 Nausea; Z20.822 Contact with and (suspected) exposure to COVID-19
CPT/HCPCS: 36415; 81001; 81025; 87635; 87804; 99283

== ENCOUNTER → 2023-07-06 | Emergency (ER) | payer SELFPAY ==
[~2023-07-06] MED LIST: KETOROLAC 30 MG/ML INJ ONE; NA CHLORIDE 0.9% 1,000 ML ONE; ONDANSETRON 4 MG/2 ML VIAL ONE
--- OUTSIDE RECORDS SUMMARY | 2023-07-06 12:58 | XMS REPORT | Continuity of Care Document ---
Author Name Unknown Address [address] [facility] [address] [place] [address] [facility] thconnect Address [address] [facility] [place] [address] Care Team Providers Care Forensic Anthropologist Name Role Phone Kisha Lincoln Primary Care Physician STEPHY WIGGINS Attending Clinician Unavailable Ena Rowe PA-C Attending Clinician [phone] Stephy Wiggins MD Attending Clinician ENA ROWE Attending Clinician Unavailable Hodan Mabry RN [facility]ending [facility]ician [facility] Attending Clinician Un available Payers Payer Name Policy Type Policy Number Effective Date Expirati on Date Source [facility] [id number] 2020 00:00:00 Problems Condition Name Condition Details Condition Category Status Onset Date Resolution Date Last Treatment Date Treating Clinician Comments Source Well woman exam (no gynecologi vanessa exam) Well woman exam (no gynecologi vanessa exam) Disease Active 10-15 00:00: 00 [facility] Nexplanon in place Nexplanon in place Disease Active 10-15 00:00: 00 [facility] Allergies, Adverse Reactions, Alerts Allergy Name Allergy Type Status Severity Reaction(s) Onset Date Inactive Date Treating Clinician Comments Source NO KNOWN ALLERGIE S Drug Class Active [facility] Social History Social Habit Start Date Stop Date Quantity Comments Source Gender identity [facility] History of tobacco use Passive smoker [facility] Alcohol Comment 2022-11-28 00:00:00 2022-11-28 00:00:00 quit [facility] Alcohol intake 2022-11-28 00:00:00 2022-11-28 00:00:00 Lifetime non-drinker (finding) [facility] Exposure to SARS-CoV-2 (event) 2022-06-23 00:00:00 2022-07-03 11:46:00 Not sure [facility] Tobacco use and exposure 2021-11-22 00:00:00 2021-11-22 00:00:00 Smokeless tobacco non-user [facility] History of Social function 2021-11-22 00:00:00 2021-11-22 00:00:00 [facility] Sex Assigned At 2000 00:00:00 2000 00:00:00 [facility] Smoking Status Start Date Stop Date Source Never smoked tobacco [facility] Medications Ordered Medication Name Filled Medication Name Start Date Stop Date Current Medication? Ordering Clinician Indication Dosage Frequency Signature (SIG) Comments Components Source metroNIDAZO LE (FLAGYL) 500 mg tablet 12-01 00:00: 00 12-09 04:59 :00 No [id number] 500mg Take 1 tablet by mouth in the morning and 1 tablet in the evening. Do all this for 7 days. [facility] metroNIDAZO LE 500 mg tablet 21 00:00: 00 Yes [id number] 500mg Take 1 tablet by mouth every 12 (twelve) hours. [facility] metroNIDAZO LE 500 mg tablet 0 3-21 00:00: 00 Yes [id number] 500mg Take 1 tablet by mouth every 12 (twelve) hours. [facility] metroNIDAZO LE 500 mg tablet 0 3-21 00:00: 00 Yes [id number] 500mg Take 1 tablet by mouth every 12 (twelve) hours. [facility] metroNIDAZO LE 500 mg tablet 0 3-21 00:00: 00 Yes [id number] 500mg Take 1 tablet by mouth every 12 (twelve) hours. [facility] metroNIDAZO LE 500 mg tablet 2022-0 3-21 00:00: 00 Yes [id number] 500mg Take 1 tablet by mouth every 12 (twelve) hours. [facility] metroNIDAZO LE 500 mg tablet 2022-0 3-21 00:00: 00 Yes [id number] 500mg Take 1 tablet by mouth every 12 (twelve) hours. [facility] metroNIDAZO LE 500 mg tablet 2022-0 3-21 00:00: 00 Yes [id number] 500mg Take 1 tablet by mouth every 12 (twelve) hours. [facility] metroNIDAZO LE 500 mg tablet 2022-0 3-21 00:00: 00 Yes [id number] 500mg Take 1 tablet by mouth every 12 (twelve) hours. [facility] fluconazole 150 mg tablet 2022-0 3 00:00: 00 07-06 04:59 :00 No [id number] 150mg Take 1 tablet by mouth once now for 1 dose. [facility] Dose Unknown 2021-0 8-15 00:00: 00 No 500 Dose Unknown 2021-0 8-15 00:00: 00 No 600 doxycycline hyclate 100 mg tablet 2021-0 8-10 00:00: 00 Yes [id number] 100mg Take 1 tablet by mouth in the morning and 1 tablet in the evening. [facility] doxycycline hyclate 100 mg tablet 2021-0 8-10 00:00: 00 Yes [id number] 100mg Take 1 tablet by mouth in the morning and 1 tablet in the evening. [facility] doxycycline hyclate 100 mg tablet 2-0 8-10 00:00: 00 Yes [id number] 100mg Take 1 tablet by mouth in the morning and 1 tablet in the evening. [facility] doxycycline hyclate 100 mg tablet 2-0 8-10 00:00: 00 Yes [id number] 100mg Take 1 tablet by mouth in the morning and 1 tablet in the evening. [facility] doxycycline hyclate 100 mg tablet 2-0 8-10 00:00: 00 Yes [id number] 100mg Take 1 tablet by mouth in the morning and 1 tablet in the evening. [facility] doxycycline hyclate 100 mg tablet 2-0 8-10 00:00: 00 07-04 00:00 :00 No [id number] 100mg Take 1 tablet by mouth in the morning and 1 tablet in the evening. [facility] doxycycline hyclate 100 mg tablet 2-0 8-10 00:00: 00 07-04 00:00 :00 No [id number] 100mg Take 1 tablet by mouth in the morning and 1 tablet in the evening. [facility] doxycycline hyclate 100 mg tablet 2-0 8-10 00:00: 00 07-04 00:00 :00 No [id number] 100mg Take 1 tablet by mouth in the morning and 1 tablet in the evening. [facility] doxycycline hyclate 100 mg tablet 2-0 8-10 00:00: 00 07-04 00:00 :00 No [id number] 100mg Take 1 tablet by mouth in the morning and 1 tablet in the evening. [facility] Nexplanon 68 mg subdermal implant 2022-0 6-28 00:00: 00 No 1mg Dose Unknown 2022-0 6-28 00:00: 00 No Nexplanon 68 mg subdermal implant 2022-0 6-28 00:00: 00 No 1mg Dose Unknown 2022-0 6-28 00:00: 00 No TAKE 1 TABLET BY MOUTH EVERY 6 HOURS NEEDED FOR PAIN 2022-0 6-28 00:00: 00 No Dose Unknown 2022-0 6-28 00:00: 00 No Dose Unknown 2022-0 6-28 00:00: 00 No TAKE 1 TABLET BY MOUTH EVERY 6 HOURS NEEDED FOR PAIN 2022-0 6-28 00:00: 00 No TAKE 1 TABLET BY MOUTH EVERY 6 HOURS NEEDED FOR PAIN 2022-0 6-28 00:00: 00 No Dose Unknown 2022-0 6-28 00:00: 00 No Dose Unknown 2022-0 6-28 00:00: 00 No TAKE 1 TABLET BY MOUTH EVERY 6 HOURS NEEDED FOR PAIN 2022-0 6-28 00:00: 00 No TAKE 1 TABLET BY MOUTH EVERY 6 HOURS NEEDED FOR PAIN 2022-0 6-24 00:00: 00 No Dose Unknown 0 10-08 00:00: 00 No TAKE 1 TABLET BY MOUTH EVERY 6 HOURS NEEDED FOR PAIN 0 10-08 00:00: 00 No Dose Unknown 0 10-08 00:00: 00 No TAKE 1 TABLET BY MOUTH EVERY 6 HOURS NEEDED FOR PAIN 0 10-05 00:00: 00 No TAKE 1 CAPSULE BY MOUTH THREE TIMES DAILY 0 10-05 00:00: 00 No TAKE 1 TABLET BY MOUTH EVERY 6 HOURS NEEDED FOR PAIN 0 10-05 00:00: 00 No TAKE 1 CAPSULE BY MOUTH THREE TIMES DAILY 0 10-05 00:00: 00 No amoxicillin 875 mg tablet 0 06-26 00:00: 00 No 1mg amoxicillin 875 mg tablet 06-26 00:00: 00 No 1mg ibuprofen 600 mg tablet 2018-04 00:00: 00 No 1mg ibuprofen 600 mg tablet 2018-04 00:00: 00 No 1mg Nexplanon 68 mg subdermal implant 0 10-01 00:00: 00 No 1mg Nexplanon 68 mg subdermal implant 10-01 00:00: 00 No 1mg Immunizations Ordered Immunization Name Filled Immunization Name Date Status Comments Source HPV9 2022-05-25 00:00:00 Completed [facility] HPV9 2022-05-25 00:00:00 Completed [facility] HPV9 2022-05-25 00:00:00 Completed [facility] HPV9 2022-05-25 00:00:00 Completed [facility] HPV9 2022-05-25 00:00:00 Completed [facility] HPV9 2022-05-25 00:00:00 Completed [facility] HPV9 2022-05-25 00:00:00 Completed [facility] HPV9 2022-05-25 00:00:00 Completed [facility] HPV9 2022-01-26 00:00:00 Completed [facility] HPV9 2022-01-26 00:00:00 Completed [facility] HPV9 2022-01-26 00:00:00 Completed [facility] HPV9 2022-01-26 00:00:00 Completed [facility] HPV9 2022-01-26 00:00:00 Completed [facility] HPV9 2022-01-26 00:00:00 Completed [facility] HPV9 2022-01-26 00:00:00 Completed [facility] HPV9 2022-01-26 00:00:00 Completed [facility] HPV9 2022-01-26 00:00:00 Completed [facility] HPV9 2022-01-26 00:00:00 Completed [facility] HPV9 2022-01-26 00:00:00 Completed [facility] HPV9 2021-11-22 00:00:00 Completed [facility] HPV9 2021-11-22 00:00:00 Completed [facility] HPV9 2021-11-22 00:00:00 Completed [facility] HPV9 2021-11-22 00:00:00 Completed [facility] HPV9 2021-11-22 00:00:00 Completed [facility] HPV9 2021-11-22 00:00:00 Completed [facility] HPV9 2021-11-22 00:00:00 Completed [facility] HPV9 2021-11-22 00:00:00 Completed [facility] HPV9 2021-11-22 00:00:00 Completed [facility] HPV9 2021-11-22 00:00:00 Completed [facility] HPV9 2021-11-22 00:00:00 Completed [facility] HPV9 2021-11-22 00:00:00 Completed [facility] HPV9 Unknown Completed [facility] HPV9 Unknown Completed [facility] HPV9 Unknown Completed [facility] HPV9 Unknown Completed [facility] HPV9 Unknown Completed [facility] HPV9 Unknown Completed [facility] HPV9 Unknown Completed [facility] HPV9 Unknown Completed [facility] HPV9 Unknown Completed [facility] HPV9 Unknown Completed [facility] HPV9 Unknown Completed [facility] HPV9 Unknown Completed [facility] HPV9 Unknown Completed [facility] HPV9 Unknown Completed [facility] HPV9 Unknown Completed [facility] HPV9 Unknown Completed [facility] HPV9 Unknown Completed [facility] Vital Signs Vital Name Observation Time Observation Value Comments S kelsy Systolic blood pressure 2022-11-28 14:26:00 116 mm[Hg] [facility] Diastolic blood pressure 2022-11-28 14:26:00 79 mm[Hg] [facility] Heart rate 2022-11-28 14:26:00 71 /min [facility] Body temperature 2022-11-28 14:26:00 36.67 Betty [facility] Body height 2022-11-28 14:26:00 167.6 cm [facility] Body weight 2022-11-28 14:26:00 53.162 kg [facility] BMI 2022-11-28 14:26:00 18.92 kg/m2 [facility] Systolic blood pressure 2022-07-04 14:52:00 117 mm[Hg] [facility] Diastolic blood pressure 2022-07-04 14:52:00 80 mm[Hg] [facility] Heart rate 2022-07-04 14:52:00 78 /min [facility] Body temperature 2022-07-04 14:52:00 36.72 Betty [facility] Respiratory rate 2022-07-04 14:52:00 18 /min [facility] Body height 2022-07-04 14:52:00 167.6 cm [facility] Systolic blood pressure 2022-05-25 14:10:00 114 mm[Hg] [facility] Diastolic blood pressure 2022-05-25 14:10:00 72 mm[Hg] [facility] Heart rate 2022-05-25 14:10:00 70 /min [facility] Body temperature 2022-05-25 14:10:00 36.78 Betty [facility] Body height 2022-05-25 14:10:00 167.6 cm [facility] Body weight 2022-05-25 14:10:00 55.702 kg [facility] BMI 2022-05-25 14:10:00 19.82 kg/m2 [facility] Systolic blood pressure 2022-02-02 16:28:00 119 mm[Hg] [facility] Diastolic blood pressure 2022-02-02 16:28:00 80 mm[Hg] [facility] Heart rate 2022-02-02 16:28:00 70 /min Un[facility] Body temperature 2022-02-02 16:28:00 36.72 Betty [facility] Respiratory rate 2022-02-02 16:28:00 18 /min [facility] Body height 2022-02-02 16:28:00 167.6 cm [facility] Body weight 2022-02-02 16:28:00 59.784 kg [facility] BMI 2022-02-02 16:28:00 21.27 kg/m2 [facility] Systolic blood pressure 2022-01-26 18:42:00 112 mm[Hg] [facility] Diastolic blood pressure 2022-01-26 18:42:00 73 mm[Hg] [facility] Heart rate 2022-01-26 18:42:00 65 /min Un[facility] Body temperature 2022-01-26 18:42:00 36.83 Betty [facility] Respiratory rate 2022-01-26 18:42:00 16 /min [facility] Body height 2022-01-26 18:42:00 167.6 cm [facility] Body weight 2022-01-26 18:42:00 59.512 kg [facility] BMI 2022-01-26 18:42:00 21.18 kg/m2 [facility] BP Systolic 2021-10-12 11:33:00 126 mm[Hg] [...] Rate 2021-03-19 09:08:00 Respiratory Rate 2021-03-19 09:08:00 Heart Rate 2019-06-27 13:02:00 100.00 /min Respiratory Rate 2019-06-27 13:02:00 16.00 /min BP Systolic 2019-06-27 13:02:00 114 mm[Hg] BP Diastolic 2019-06-27 13:02:00 82 mm[Hg] Weight Measured 2019-06-27 13:02:00 130.20 pounds Height Measured 2019-06-27 13:02:00 66.54 inches Body Temperature 2019-06-27 13:02:00 98.90 degrees BP Systolic 2019-03-25 13:49:00 120 mm[Hg] BP [...] Procedures Procedure Date / Time Performed Performing Clinicia n Source POCT URINALYSIS W/O SPECIFIC GRAVITY 2022-07-04 00:00:00 Ena Rowe [facility] GARDASIL 9 (HPV 9V) VACCINE 2022-05-25 14:12:46 Stephy Wiggins [facility] GARDASIL 9 (HPV 9V) VACCINE 2022-01-26 18:59:55 Stephy Wiggins [facility] Plan of Care Planned Activity Planned Date Details Comments Source Goal Plan of Care Note [code = 80911-2] Goal Plan of Care Note [code = 99139-7] Goal Plan of Care Note [code = 22312-0] Goal Plan of Care Note [code = 68468-0] Goal Plan of Care Note [code = 36281-0] Goal Plan of Care Note [code = 03663-1] Goal Plan of Care Note [code = 17681-7] Goal Plan of Care Note [code = 34266-3] Goal Plan of Care Note [code = 73569-6] Goal Plan of Care Note [code = 99194-1] Goal Plan of Care Note [code = 44485-9] Goal Plan of Care Note [code = 88535-9] Goal Plan of Care Note [code = 41264-4] Goal Plan of Care Note [code = 04697-3] Goal Plan of Care Note [code = 89643-0] Goal Plan of Care Note [code = 85926-2] Goal Plan of Care Note [code = 55150-7] Goal Plan of Care Note [code = 27992-6] Goal Plan of Care Note [code = 43595-5] Goal Plan of Care Note [code = 56964-4] Goal Plan of Care Note [code = 96074-4] Goal Plan of Care Note [code = 55270-7] Goal Plan of Care Note [code = 58057-4] Goal Plan of Care Note [code = 25337-7] Goal Plan of Care Note [code = 09649-8] Goal Plan of Care Note [code = 13764-3] Goal Plan of Care Note [code = 05207-3] Goal Plan of Care Note [code = 44472-1] Goal Plan of Care Note [code = 29114-3] Goal Plan of Care Note [code = 07961-1] Goal Plan of Care Note [code = 11733-5] Goal Plan of Care Note [code = 87375-0] Goal Plan of Care Note [code = 98023-2] Goal Plan of Care Note [code = 24059-7] Goal Plan of Care Note [code = 10664-3] Goal Plan of Care Note [code = 63733-2] Goal Plan of Care Note [code = 00458-3] Goal Plan of Care Note [code = 19575-4] Encounters Start Date/Time End Date/Time Encounter Type Admission Type Attending [facility] Care Facility Care Department Encounter ID Source 2023-05-31 00:00:00 2023-05-31 00:00:00 RefEna Holland [facility] 1.2.840.114 350.1.13.10 4.2.7.2.686 [id number] 134 [id number] [facility] 2023-05-16 08:30:00 2023-05-16 08:30:00 Outpatient R STEPHY WIGGINS [facility] [id number] [facility] 2023-05-11 00:00:00 2023-05-11 00:00:00 Patient Secure Msg Stephy Wiggins [facility] 1.2.840.114 350.1.13.10 4.2.7.2.686 [id number] 134 [id number] [facility] 2022-12-19 15:01:26 2022-12-19 15:01:26 Outpatient [facility] [id number] Tk Shi Neftaly 2022-12-01 00:00:00 2022-12-01 00:00:00 Case Management Stephy Wiggins [facility] 1.2.840.114 350.1.13.10 4.2.7.2.686 [id number] 134 [id number] [facility] 2022-11-28 09:30:00 2022-11-28 09:38:27 Outpatient R STEPHY WIGGINS [facility] [id number] [facility] 2022-11-28 09:30:00 2022-11-28 09:38:27 Office Visit WigginsStephy [facility] 1.2.840.114 350.1.13.10 4.2.7.2.686 [id number] 134 [id number] [facility] 2022-07-06 00:00:00 2022-07-06 00:00:00 Patient Secure Msg Hodan Mabry [facility] 1.2.840.114 350.1.13.10 4.2.7.2.686 [id number] 134 [id number] [facility] 2022-07-05 00:00:00 2022-07-05 00:00:00 Case Management Adama Ena [facility] 1.2.840.114 350.1.13.10 4.2.7.2.686 [id number] 134 [id number] [facility] 2022-07-05 00:00:00 2022-07-05 00:00:00 Patient Secure Msg Ena Rowe [facility] 1.2.840.114 350.1.13.10 4.2.7.2.686 [id number] 134 [id number] [facility] 2022-07-04 10:00:00 2022-07-04 10:53:46 Outpatient R ENA ROWE [facility] [id number] [facility] 2022-07-04 10:00:00 2022-07-04 10:53:46 Office Visit Adama Ena [facility] 1.2.840.114 350.1.13.10 4.2.7.2.686 [id number] 134 [id number] [facility] 2022-07-04 00:00:00 2022-07-04 00:00:00 Patient Secure Msg Ena Rowe [facility] 1.2.840.114 350.1.13.10 4.2.7.2.686 [id number] 134 [id number] [facility] 2022-05-25 08:00:00 2022-05-25 08:15:00 Nurse Visit Nurse, [facility] Admaa [facility] 1..840.114 350.1.13.10 4.2.7.2.686 [id number] 134 [id number] [facility] 2022-05-25 08:00:00 2022-05-25 08:00:00 [facility] [id number] 2022-05-25 08:00:00 2022-05-25 08:00:00 Outpatient R [facility] [id number] [facility] 2022-02-02 13:00:00 2022-02-02 13:00:00 Office Visit Adama Ena [facility] 1..840.114 350.1.13.10 4.2.7.2.686 [id number] 134 [id number] [facility] 2022-02-02 13:00:00 2022-02-02 11:48:47 Outpatient R [facility] [id number] [facility] 2022-02-01 00:00:00 2022-02-01 00:00:00 Patient Secure Msg Feliciano Stephy Romulo [facility] 1.2.840.114 350.1.13.10 4.2.7.2.686 [id number] 134 [id number] [facility] 2022-01-26 14:00:00 2022-01-26 14:00:00 Outpatient R ENA ROWE [facility] [id number] [facility] 2022-01-26 14:00:00 2022-01-26 14:00:00 Nurse Visit Nurse, [facility] Ena Rowe [facility] 1.2.840.114 350.1.13.10 4.2.7.2.686 [id number] 134 [id number] [facility] 2022-01-24 08:00:00 2022-01-24 08:00:00 Outpatient R [facility] [id number] [facility] 2021-11-29 00:00:00 2021-11-29 00:00:00 Outpatient Visit [id number] 2021-11-25 00:00:00 2021-11-25 00:00:00 Patient Secure Msg Stephy Wiggins [facility] 1.2.840.114 350.1.13.10 4.2.7.2.686 [id number] 134 [id number] [facility] 2021-11-25 00:00:00 2021-11-25 00:00:00 Telephone Stephy Wiggins [facility] 1.2.840.114 350.1.13.10 4.2.7.2.686 [id number] 134 [id number] [facility] 2021-11-24 00:00:00 2021-11-24 00:00:00 Patient Secure Msg Stephy Wiggins [facility] 1.2.840.114 350.1.13.10 4.2.7.2.686 [id number] 134 [id number] [facility] 2021-11-24 00:00:00 2021-11-24 00:00:00 Case Management Ena Rowe [facility] 1.2.840.114 350.1.13.10 4.2.7.2.686 [id number] 134 [id number] [facility] 2021-11-23 00:00:00 2021-11-23 00:00:00 Patient Secure Msg Stephy Wiggins [facility] 1.2.840.114 350.1.13.10 4.2.7.2.686 [id number] 134 [id number] [facility] 2021-11-22 08:00:00 2021-11-22 09:06:55 Outpatient R [facility]ELIC[facility] [id number] [facility] 2021-11-22 08:00:00 2021-11-22 09:06:55 Office Visit Stephy Wiggins [facility] 1.2.840.114 350.1.13.10 4.2.7.2.686 [id number] 134 [id number] [facility] 2021-10-12 00:00:00 2021-10-12 00:00:00 Outpatient Visit [id number] 2021-01-20 14:16:03 2021-01-20 14:52:14 Office Visit Ena Rowe [facility] 1.2.840.114 350.1.13.10 4.2.7.2.686 [id number] 134 [id number] [facility] 2021-01-20 14:30:00 2021-01-20 14:30:00 Outpatient R FELICIANO STEPHY [facility] [id number] [facility] 2021-01-14 00:00:00 2021-01-14 00:00:00 Patient Secure [facility] 1.2.840.114 350.1.13.10 4.2.7.2.686 [id number] 134 [id number] [facility] 2020-10-15 13:30:00 2020-10-15 13:30:00 Outpatient R STEPHY WIGGINS [facility] [id number] [facility] Results Test Description Test Time Test Comments Results Result Co mments [facility] SPECIFIC [id number] 15:16:00* Test Item Value Reference Range Interpretation Comme nts POCT PH U (test code = 3254) 7 mg/dl 5-8 POCT U LEUK EST (test code = 3263) neg Negative - Negative POCT U NIT (test code = 3262) neg Negative - Negati ve POCT U PROT (test code = 3259) trace Negative - Negat mattie POCT U GLU (test code = 3256) neg Negative - Negati ve POCT U KETONE (test code = 3258) + Negative - Neg ative POCT U BLD (test code = 3257) neg Negative - Negati ve [facility] Notes Date/Time Note Provider Source 2023-05-15 09:36:22 [id number] Z+[id number] Ad2sEOXavFAhLU/+q9VZceIrhVPkc0371-5 09:36:22 Returned pt call to assist in scheduling. Sooner appointment provided. Pt's insurance is no longer active. Pt will call back after she speaks with insurance company to schedule an appointment. [id number] encounter [id number]:37:39Telephone encounter [id number]. [id number] for patient [id number] C-CDA narrative [id number] [address] [id number] [facility]"
[2023-07-06 13:30] LABS: Specific Gravity 1.025 (1.005-1.030)
[2023-07-06 13:33] LABS: Specific Gravity 1.025 (1.005-1.030); Sqamous Epithelial <5 /HPF (None Seen); Urine Bacteria None Seen /HPF (<20); Urine Bilirubin NEGATIVE (Negative); Urine Blood Negative (Negative); Urine Clarity Clear (Clear); Urine Color Light-Yellow (Yellow); Urine Culture Reflex Order NOT NEEDED; Urine Glucose NEGATIVE (Negative); Urine Ketones NEGATIVE (Negative); Urine Microscopic Reflex YN ORDER UMIC; Urine Mucus 1+ /HPF (None Seen); Urine Nitrite NEGATIVE (Negative); Urine Protein TRACE (Negative); Urine RBC <5 /HPF (None Seen); Urine Urobilinogen Normal (Normal); Urine WBC <5 /HPF (<5); Urine pH 6.5 (5.0-7.0)
[2023-07-06 13:47] LABS: Albumin 3.8 g/dL (3.4-5.0); Anion Gap 7.6 mEq/L (5.0-15.0); Bilirubin Total 0.4 mg/dL (0.2-1.0); Globulin 3.9 g/dL (2.3-3.5); Potassium 3.6 mEq/L (3.5-5.1); Protein, Total 7.7 g/dL (6.4-8.2)
[2023-07-06 13:54] LABS: Absolute Eosinophils 0.3 K/uL (0-0.5); Absolute Lymphocytes (CBC) 1.7 K/uL (0.7-4.9); Absolute Monocytes 0.5 K/uL (0.1-1.3); Basophils % 0.4 % (0-1.3); Eosinophils % 4.6 % (0-4.4); Hematocrit 36.9 % (36.0-45.0); Hemoglobin 12.5 g/dL (12.0-15.0); Lymphocytes % 25.6 % (15.3-44.8); MCH 30.5 pg (27.0-35.0); MCHC 33.9 g/dL (32.0-36.0); MPV 9.1 fL (7.6-11.3); Monocytes % 8.2 % (3.3-12.3); Neutrophils % 61.2 % (41.7-73.7); Nucleated Red Blood Cells % 0.1 % (0-0); Platelets 232 thou/uL (152-406); Red Cell Distribution Width 12.1 % (12.1-15.2)
--- NOTE | 2023-07-06 14:57 | RAD REPORT ---
EXAM DESCRIPTION: US - Pelvis Complete - 07/06/2023 2:13 pm CLINICAL HISTORY: Pelvic pain COMPARISON: None FINDINGS: The bladder is not well distended with urine which limits evaluation somewhat. The uterus measures 6 x 3 x 4cm. The endometrial stripe measures 5 millimeters millimeters. A fibroid is not seen. The ovaries are normal in size and echotexture. 2.2 centimeter right ovarian cyst. Blood flow to the right ovary is present The right and left adnexa unremarkable No significant free fluid is seen. IMPRESSION: 2.2 centimeter right ovarian cyst is benign. No followup imaging needed
--- NOTE | 2023-07-06 15:18 | EDPHYS ---
Physician Documentation [facility] Name: Digna Gonzalez Age: 23 yrs Sex: Female : 2000 Arrival Date: 07/06/2023 Time: 12:54 Bed 9 Private MD: ED Physician Seferino Holguin HPI: 07/05 13:15 This 23 yrs old Black Female presents to ER via Ambulatory with complaints of Headache, cp Nausea/Vomiting, Abdominal Pain, Vaginal Bleeding. 13:15 The patient complains of pain to the general. The patient describes the headache as cp aching, waxing and waning. The patient presents with abdominal pain in the lower abdomen. Onset: The symptoms/episode began/occurred 1 week(s) ago. 13:15 The symptoms do not radiate. Associated signs and symptoms: Pertinent positives: cp vaginal bleeding, Pertinent negatives: fever, neck stiffness. Severity of symptoms: in the emergency department the pain has improved, markedly. Historical: - Allergies: 13:02 No Known Allergies; mb9 - Home Meds: 13:02 None [Active]; mb9 - PMHx: 13:02 None; mb9 - PSHx: 13:02 None; mb9 - Immunization history:: Adult Immunizations up to date. - Social history:: Smoking status: Patient denies any tobacco usage or history of. ROS: 13:15 Constitutional: Negative for body aches, chills, fever, poor PO intake, cp 13:15 Eyes: Negative for injury, pain, redness, and discharge, cp 13:15 ENT: Negative for drainage from ear(s), ear pain, sore throat, difficulty swallowing, difficulty handling secretions, 13:15 Cardiovascular: Negative for chest pain, palpitations, 13:15 Respiratory: Negative for cough, shortness of breath, wheezing, 13:15 Abdomen/GI: Positive for abdominal pain, nausea and vomiting, of the right lower quadrant and left lower quadrant, Negative for diarrhea, constipation, 13:15 Back: Negative for pain at rest, pain with movement, 13:15 : Positive for vaginal bleeding, Negative for urinary symptoms, 13:15 Neuro: Positive for headache, Negative for altered mental status, syncope, weakness, 13:15 All other systems are negative, Exam: 13:20 Constitutional: The patient appears in no acute distress, alert, awake, comfortable, cp non-toxic, well developed, well nourished, 13:20 Head/Face: Normocephalic, atraumatic. cp 13:20 Eyes: Periorbital structures: appear normal, Conjunctiva: normal, no exudate, no injection, Sclera: no appreciated abnormality, Lids and lashes: appear normal, bilaterally, 13:20 ENT: External ear(s): are unremarkable, Nose: is normal, Mouth: Lips: moist, Oral mucosa: pink and intact, moist, Posterior pharynx: Airway: no evidence of obstruction, patent, 13:20 Chest/axilla: Inspection: normal, 13:20 Cardiovascular: Rate: normal, Rhythm: regular, 13:20 Respiratory: the patient does not display signs of respiratory distress, Respirations: normal, no use of accessory muscles, no retractions, labored breathing, is not present, Breath sounds: are clear throughout, no decreased breath sounds, no stridor, no wheezing, 13:20 Abdomen/GI: Inspection: abdomen appears normal, Bowel sounds: active, all quadrants, Palpation: soft, in all quadrants, mild abdominal tenderness, in the right lower quadrant and left lower quadrant, rebound tenderness, is not appreciated, involuntary guarding, is not appreciated, 13:20 Back: CVA tenderness, is absent, 13:20 Neuro: Orientation: to person, place \T\ time. Mentation: is normal, Cerebellar function: is grossly normal, Motor: moves all fours, strength is normal, Sensation: is normal, Vital Signs: 13:01 BP 136 / 95; Pulse 82; Resp 18; Temp 98; Pulse Ox 100% ; Weight 52.16 kg; Height 5 ft. mb9 6 in. ; Pain 4/10; 14:50 BP 124 / 82; Pulse 70; Resp 18; Pulse Ox 100% on R/A; mb9 13:01 Body Mass Index 18.56 (52.16 kg, 167.64 cm) mb9 13:01 Pain Scale: Adult mb9 MDM: 13:14 Patient medically screened. cp 13:38 Patient medically screened. terri 15:17 Data reviewed: vital signs, nurses notes, lab test result(s), radiologic studies, cp ultrasound. 15:17 Differential diagnosis: migraine, tension headache, Pelvic Inflammatory Disease, cp Pyelonephritis, urinary tract infection, anemia. I considered the following discharge prescriptions or medication management in the emergency department Medications were administered in the Emergency Department. See MAR. Counseling: I had a detailed discussion with the patient and/or guardian regarding the historical points, exam findings, and any diagnostic results supporting the discharge/admit diagnosis, lab results, radiology results, to return to the emergency department if symptoms worsen or persist or if there are any questions or concerns that arise at home. Special discussion: Based on the patient's Hx, exam, and Dx evaluation, there is no indication for emergent surgery or inpatient Tx. It is understood by the patient/guardian that if the Sx's persist or worsen they need to return immediately for re-evaluation. 07/05 13:15 Order name: CBC with Diff; Complete Time: 14:38 cp 07/05 14:38 Interpretation: Normal except: EOSINOPHIL % 4.6. cp 07/05 13:15 Order name: CMP; Complete Time: 14:24 cp 07/05 14:24 Interpretation: Normal except: AST 10; GLOB 3.9. cp 07/05 13:15 Order name: Lipase; Complete Time: 14:24 cp 07/05 14:25 Interpretation: Reviewed. cp 07/05 13:15 Order name: Test, Urine; Complete Time: 14:24 cp 07/05 14:25 Interpretation: Reviewed. cp 07/05 13:15 Order name: Urinalysis w/ reflexes; Complete Time: 14:24 cp 07/05 14:25 Interpretation: Normal except: UPROT TRACE. cp 07/05 13:15 Order name: US Pelvis Complete; Complete Time: 15:13 cp 07/05 15:14 Interpretation: Report reviewed. cp 07/05 13:15 Order name: IV Saline Lock; Complete Time: 13:24 cp 07/05 13:15 Order name: Labs collected and sent; Complete Time: 13:24 cp Administered Medications: 13:25 Drug: TORadol - Ketorolac IVP 15 mg IVP once Route: IVP; Site: right antecubital; mb9 14:49 Follow up: Response: No adverse reaction mb9 13:29 Drug: NS 0.9% IV 1000 ml IV at 1 bolus Per protocol; 1000 mL bolus Route: IV; Rate: 1 mb9 bolus; Site: right antecubital; 14:48 Follow up: Response: No adverse reaction; IV Status: Completed infusion mb9 13:30 Drug: Ondansetron IVP 4 mg IVP once; over 2 minutes Route: IVP; Site: right antecubital;mb9 14:48 Follow up: Response: No adverse reaction mb9 Disposition Summary: 07/06/23 15:18 Discharge Ordered Notes: Location: Home cp Problem: new cp Symptoms: have improved cp Condition: Stable cp Diagnosis - Other ovarian cysts cp - Lower abdominal pain, unspecified cp - Abnormal uterine and vaginal bleeding, unspecified cp - Headache cp Followup: cp - With: Private Physician - When: 1 week - Reason: symptoms continue Discharge Instructions: - Discharge Summary Sheet cp - Abdominal Pain, Adult cp - Abnormal Uterine Bleeding cp - General Headache Without Cause cp - Ovarian Cyst cp Forms: - Medication Reconciliation Form cp - Thank You Letter cp - Antibiotic Education cp - Prescription Opioid Use cp - Patient Portal Instructions cp - Leadership Thank You Letter cp Prescriptions: - Ibuprofen 600 mg Oral tablet - take 1 tablet ORAL route every 8 hours As needed take with food; 30 tablet; cp Refills: 0, Product Selection Permitted - Zofran 4 mg Oral Tablet - take 1 tablet ORAL route every 12 hours As needed; 20 tablet; Refills: 0, cp Product Selection Permitted Signatures: Dispatcher [employer] Seferino Dutton MD MD cha Page, Corey, PA PA Carly Krishnamurthy RN RN mb9
--- NOTE | 2023-07-06 15:18 | ER ---
Nurse's Notes [facility] Name: Digna Gonzalez Age: 23 yrs Sex: Female : 2000 Arrival Date: 07/06/2023 Time: 12:54 Bed 9 Private MD: Diagnosis: Other ovarian cysts;Lower abdominal pain, unspecified;Abnormal uterine and vaginal bleeding, unspecified;Headache Presentation: 07/05 13:01 Chief complaint: Patient states: "I've been having LLQ cramping, N, bright red vaginal mb9 bleeding, and pain for the past week. My last period was on 06/16/23.". Coronavirus screen: Vaccine status: Patient reports being unvaccinated. Ebola Screen: No symptoms or risks identified at this time. Initial Sepsis Screen: Does the patient meet any 2 criteria? No. Patient's initial sepsis screen is negative. Does the patient have a suspected source of infection? No. Patient's initial sepsis screen is negative. Risk Assessment: Do you want to hurt yourself or someone else? Patient reports no desire to harm self or others. Onset of symptoms was July 06, 2023. 13:01 Method Of Arrival: Ambulatory mb9 13:01 Acuity: BALTAZAR 3 mb9 Triage Assessment: 13:02 General: Appears in no apparent distress. Behavior is calm, cooperative. Pain: mb9 Complains of pain in abdomen Pain radiates to LLQ. Pain: Pain currently is 4 out of 10 on a pain scale. Quality of pain is described as crampy, Pain began 2-3 days ago. Also complains of nausea. Neuro: [place] Agitation-Sedation Scale (RASS): 0 - Alert and Calm Level of Consciousness is awake, alert, obeys commands, Oriented to person, place, time, situation, Appropriate for age. Respiratory: Airway is patent Respiratory effort is even, unlabored, Respiratory pattern is regular, symmetrical. GI: Reports nausea. : Reports vaginal bleeding that is light flow. Derm: Skin is pink, warm \\T\\ dry. Musculoskeletal: Range of motion: intact in all extremities. 15:38 Headache History: The patient has had previous headaches. kd3 Historical: - Allergies: 13:02 No Known Allergies; mb9 - Home Meds: 13:02 None [Active]; mb9 - PMHx: 13:02 None; mb9 - PSHx: 13:02 None; mb9 - Immunization history:: Adult Immunizations up to date. - Social history:: Smoking status: Patient denies any tobacco usage or history of. Screenin:36 [facility] ED Fall Risk Assessment (Adult) History of falling in the last 3 months, mb9 including since admission No falls in past 3 months (0 pts) Confusion or Disorientation No (0 pts) Intoxicated or Sedated No (0 pts) Impaired Gait No (0 pts) Mobility Assist Device Used No (0 pt) Altered Elimination No (0 pt) Score/Fall Risk Level 0 - 2 = Low Risk Oriented to surroundings, Maintained a safe environment, Educated pt \\T\\ family on fall prevention, incl call for assistance when getting out of bed. Abuse screen: Denies threats or abuse. Nutritional screening: No deficits noted. Tuberculosis screening: No symptoms or risk factors identified. Assessment: 13:24 Reassessment: see triage assessment. mb9 14:48 Reassessment: No changes from previously documented assessment. Patient and/or family mb9 updated on plan of care and expected duration. Pain level reassessed. Patient is alert, oriented x 3, equal unlabored respirations, skin warm/dry/pink. Vital Signs: 13:01 BP 136 / 95; Pulse 82; Resp 18; Temp 98; Pulse Ox 100% ; Weight 52.16 kg; Height 5 ft. mb9 6 in. ; Pain 4/10; 14:50 BP 124 / 82; Pulse 70; Resp 18; Pulse Ox 100% on R/A; mb9 13:01 Body Mass Index 18.56 (52.16 kg, 167.64 cm) mb9 13:01 Pain Scale: Adult mb9 ED Course: 12:57 Patient arrived in ED. im 13:02 Triage completed. mb9 13:02 Arm band placed on. mb9 13:06 Seferino Villa PA is PHCP. cp 13:06 Seferino Holguin MD is Attending Physician. cp 13:24 CBC with Diff Sent. mb9 13:24 CMP Sent. mb9 13:24 Lipase Sent. mb9 13:24 Test, Urine Sent. mb9 13:24 Urinalysis w/ reflexes Sent. mb9 13:24 Initial lab(s) drawn, by mo, sent to lab. Inserted saline lock: 20 gauge in right mb9 antecubital area, using aseptic technique. Blood collected. 13:25 Carly Albert, RN is Primary Nurse. mb9 13:37 Placed in gown. Bed in low position. Call light in reach. Side rails up X 1. Provided mb9 Education on: press call light if needing anything. Client placed on continuous cardiac and pulse oximetry monitoring. NIBP monitoring applied. Door closed. Noise minimized. Warm blanket given. 14:01 US Pelvis Complete In Process Unspecified. EDMS 15:38 No provider procedures requiring assistance completed. IV discontinued, intact, kd3 bleeding controlled, No redness/swelling at site. Pressure dressing applied. Administered Medications: 13:25 Drug: TORadol - Ketorolac IVP 15 mg IVP once Route: IVP; Site: right antecubital; mb9 14:49 Follow up: Response: No adverse reaction mb9 13:29 Drug: NS 0.9% IV 1000 ml IV at 1 bolus Per protocol; 1000 mL bolus Route: IV; Rate: 1 mb9 bolus; Site: right antecubital; 14:48 Follow up: Response: No adverse reaction; IV Status: Completed infusion mb9 13:30 Drug: Ondansetron IVP 4 mg IVP once; over 2 minutes Route: IVP; Site: right antecubital;mb9 14:48 Follow up: Response: No adverse reaction mb9 Medication: 13:37 VIS not applicable for this client. mb9 Outcome: 15:18 Discharge ordered by . bryan 15:38 Discharged to home ambulatory, kd3 15:38 Condition: stable 15:38 Discharge instructions given to patient, family, Instructed on discharge instructions, follow up and referral plans. Demonstrated understanding of instructions, follow-up care, medications, Prescriptions given X 2, 15:39 Patient left the ED. kd3 Signatures: Dispatcher [employer] EDAL Seferino Villa PA PA cp Doucette, Kyli, RN RN kd3 Carly Albert, RAS RN mb9 Bela Gardner
[2023-07-06 15:58] VITALS: BP 124/82; TEMP 98; O2SAT 100
== END ==
LOC: ER 12:54
DX: N83.299 Other ovarian cyst, unspecified side (principal); N93.9 Abnormal uterine and vaginal bleeding, unspecified; R51.9 Headache, unspecified
CPT/HCPCS: 36415; 76856; 80053; 81001; 81025; 83690; 85025; 96361; 96374; 96375; 99284; J2405; J7030

== ENCOUNTER 2024-02-16 20:31 | Emergency (ER) | payer SELFPAY ==
--- OUTSIDE RECORDS SUMMARY | 2024-02-16 20:34 | XMS REPORT | Continuity of Care Document ---
Author Name Unknown Address [address] [facility] [place] [address] [facility] thconnect Address [address] [facility] [address] [place] [address] Care Team Providers Care Broadcast Maintenance Technician Name Role Phone Kisha Lincoln Primary Care Physician STEPHY WIGGINS Attending Clinician Unavailable STEPHY WIGGINS Attending Clinician Unavailable Doctor Unassigned, [place] Attending Clinician U Stephy Storm MD Attending Clinician Ena Galan PA-C Attending Clinician [phone] ENA GALAN Attending Clinician Unavailable Clotilde MCGINNIS, Hodan Attending Clinician Unavailobi paul Nurse, [facility] Attending Clinician Un available Payers Payer Name Policy Type Policy Number Effective Date Expirati on Date Source [facility] [id number] 2020 00:00:00 [facility] [id number] 2020 00:00:00 Problems Condition Name Condition Details Condition Category Status Onset Date Resolution Date Last Treatment Date Treating Clinician Comments Source Well woman exam (no gynecologi vanessa exam) Well woman exam (no gynecologi vanessa exam) Disease Active 10-15 00:00: 00 [facility] Nexplanon in place Nexplanon in place Disease Resolve d 10-15 00:00: 00 2023-12-06 00:00:00 2023-12-06 10:15:10 [facility] Allergies, Adverse Reactions, Alerts Allergy Name Allergy Type Status Severity Reaction(s) Onset Date Inactive Date Treating Clinician Comments Source NO KNOWN ALLERGIE S Drug Class Active [facility] Social History Social Habit Start Date Stop Date Quantity Comments Source [facility] History of tobacco use Passive smoker [facility] Alcoholic beverage intake 2023-12-06 00:00:00 2023-12-06 00:00:00 Lifetime non-drinker (finding) [facility] Alcohol Comment 2022-11-28 00:00:00 2022-11-28 00:00:00 quit [facility] Alcohol intake 2022-11-28 00:00:00 2022-11-28 00:00:00 Lifetime non-drinker (finding) [facility] Exposure to SARS-CoV-2 (event) 2022-06-23 00:00:00 2022-07-03 11:46:00 Not sure [facility] Tobacco use and exposure 2021-11-22 00:00:00 2021-11-22 00:00:00 Smokeless tobacco non-user [facility] History of Social function 2021-11-22 00:00:00 2021-11-22 00:00:00 [facility] Sex assigned at 2002 00:00:00 2000 00:00:00 [facility] Smoking Status Start Date Stop Date Source Never smoked tobacco [facility] Medications Ordered Medication Name Filled Medication Name Start Date Stop Date Current Medication? Ordering Clinician Indication Dosage Frequency Signature (SIG) Comments Components Source metroNIDAZO LE (FLAGYL) 500 mg tablet 12-01 00:00: 00 12-09 04:59 :00 No [id number] 500mg Take 1 tablet by mouth in the morning and 1 tablet in the evening. Do all this for 7 days. [facility] metroNIDAZO LE 500 mg tablet 07-05 00:00: 00 12-05 00:00 :00 No [id number] 500mg Take 1 tablet by mouth every 12 (twelve) hours. [facility] fluconazole 150 mg tablet 07-05 00:00: 07-06 04:59 :00 No [id number] 150mg Take 1 tablet by mouth once now for 1 dose. [facility] Dose Unknown 8-15 00:00: 00 No 500 Dose Unknown 8-15 00:00: 00 No 600 doxycycline hyclate 100 mg tablet 8-10 00:00: 00 07-04 00:00 :00 No [id number] 100mg Take 1 tablet by mouth in the morning and 1 tablet in the evening. [facility] Nexplanon 68 mg subdermal implant 10-12 00:00: 00 No 1mg Dose Unknown 10-12 00:00: 00 No TAKE 1 TABLET BY MOUTH EVERY 6 HOURS NEEDED FOR PAIN 10-12 00:00: 00 No TAKE 1 TABLET BY MOUTH EVERY 6 HOURS NEEDED FOR PAIN 0 10-08 00:00: 00 No Dose Unknown 10-08 00:00: 00 No TAKE 1 TABLET BY MOUTH EVERY 6 HOURS NEEDED FOR PAIN 0 10-05 00:00: 00 No TAKE 1 CAPSULE BY MOUTH THREE TIMES DAILY 0 10-05 00:00: 00 No amoxicillin 875 mg tablet 3-12 00:00: 00 No 1mg ibuprofen 600 mg tablet 2018-04 00:00: 00 No 1mg Nexplanon 68 mg subdermal implant 10-01 00:00: 00 No 1mg Immunizations Ordered Immunization Name Filled Immunization Name Date Status Comments Source SARS-COV-2 COVID 19 GLENNA SUCROSE VACCINE 12+, , 0.3 ML (30 MCG), IM PFIZER (PEREZ TOP) 2023-07-21 00:00:00 Completed [facility] HPV9 2022-05-25 00:00:00 Completed [facility] HPV9 2022-05-25 00:00:00 Completed [facility] HPV9 2022-05-25 00:00:00 Completed [facility] HPV9 2022-05-25 00:00:00 Completed [facility] HPV9 2022-05-25 00:00:00 Completed [facility] HPV9 2022-05-25 00:00:00 Completed [facility] HPV9 2022-05-25 00:00:00 Completed HPV9 2022-01-26 00:00:00 Completed [facility] HPV9 2022-01-26 00:00:00 Completed [facility] HPV9 2022-01-26 00:00:00 Completed [facility] HPV9 2022-01-26 00:00:00 Completed [facility] HPV9 2022-01-26 00:00:00 Completed [facility] HPV9 2022-01-26 00:00:00 Completed [facility] HPV9 2022-01-26 00:00:00 Completed [facility] HPV9 2022-01-26 00:00:00 Completed [facility] HPV9 2022-01-26 00:00:00 Completed [facility] HPV9 2021-11-22 00:00:00 Completed [facility] HPV9 2021-11-22 00:00:00 Completed [facility] HPV9 2021-11-22 00:00:00 Completed [facility] HPV9 2021-11-22 00:00:00 Completed [facility] HPV9 2021-11-22 00:00:00 Completed [facility] HPV9 2021-11-22 00:00:00 Completed [facility] HPV9 2021-11-22 00:00:00 Completed [facility] HPV9 2021-11-22 00:00:00 Completed [facility] HPV9 2021-11-22 00:00:00 Completed [facility] HPV9 2021-11-22 00:00:00 Completed [facility] HPV9 Unknown Completed [facility] HPV9 Unknown Completed [facility] HPV9 Unknown Completed [facility] HPV9 Unknown Completed [facility] HPV9 Unknown Completed [facility] HPV9 Unknown Completed [facility] HPV9 Unknown Completed [facility] HPV9 Unknown Completed [facility] HPV9 Unknown Completed [facility] SARS-COV-2 COVID 19 GLENNA SUCROSE VACCINE 12+, , 0.3 ML (30 MCG), IM PFIZER (PEREZ TOP) Unknown Completed [facility] Vital Signs Vital Name Observation Time Observation Value Comments S kelsy Systolic blood pressure 2023-12-06 14:31:00 119 mm[Hg] [facility] Diastolic blood pressure 2023-12-06 14:31:00 76 mm[Hg] [facility] Heart rate 2023-12-06 14:31:00 75 /min Unive [facility] Body temperature 2023-12-06 14:31:00 36.83 Betty [facility] Body height 2023-12-06 14:31:00 167.6 cm [facility] Body weight 2023-12-06 14:31:00 54.159 kg [facility] BMI 2023-12-06 14:31:00 19.27 kg/m2 [facility] Systolic blood pressure 2022-11-28 14:26:00 116 mm[Hg] [facility] Diastolic blood pressure 2022-11-28 14:26:00 79 mm[Hg] [facility] Heart rate 2022-11-28 14:26:00 71 /min Unive [facility] Body temperature 2022-11-28 14:26:00 36.67 Betty [facility] Body height 2022-11-28 14:26:00 167.6 cm [facility] Body weight 2022-11-28 14:26:00 53.162 kg [facility] BMI 2022-11-28 14:26:00 18.92 kg/m2 [facility] Systolic blood pressure 2022-07-04 14:52:00 117 mm[Hg] [facility] Diastolic blood pressure 2022-07-04 14:52:00 80 mm[Hg] [facility] Heart rate 2022-07-04 14:52:00 78 /min Unive [facility] Body temperature 2022-07-04 14:52:00 36.72 Betty [facility] Respiratory rate 2022-07-04 14:52:00 18 /min [facility] Body height 2022-07-04 14:52:00 167.6 cm [facility] Systolic blood pressure 2022-05-25 14:10:00 114 mm[Hg] [facility] Diastolic blood pressure 2022-05-25 14:10:00 72 mm[Hg] [facility] Heart rate 2022-05-25 14:10:00 70 /min Unive [facility] Body temperature 2022-05-25 14:10:00 36.78 Betty [facility] Body height 2022-05-25 14:10:00 167.6 cm [facility] weight 2022-05-25 14:10:00 55.702 kg Univ [facility] BMI 2022-05-25 14:10:00 19.82 kg/m2 Univ [facility] Systolic blood pressure 2022-02-02 16:28:00 119 mm[Hg] [place] [facility] Diastolic blood pressure 2022-02-02 16:28:00 80 mm[Hg] [facility] Heart rate 2022-02-02 16:28:00 70 /min Unive [facility] Body temperature 2022-02-02 16:28:00 36.72 Betty [facility] Respiratory rate 2022-02-02 16:28:00 18 /min [facility] Body height 2022-02-02 16:28:00 167.6 cm [facility] Body weight 2022-02-02 16:28:00 59.784 kg [facility] BMI 2022-02-02 16:28:00 21.27 kg/m2 Univ [facility] Systolic blood pressure 2022-01-26 18:42:00 112 mm[Hg] [facility] Diastolic blood pressure 2022-01-26 18:42:00 73 mm[Hg] [facility] Heart rate 2022-01-26 18:42:00 65 /min Unive [facility] Body temperature 2022-01-26 18:42:00 36.83 Betty [facility] Respiratory rate 2022-01-26 18:42:00 16 /min [facility] Body height 2022-01-26 18:42:00 167.6 cm Univ [facility] Body weight 2022-01-26 18:42:00 59.512 kg [facility] BMI 2022-01-26 18:42:00 21.18 kg/m2 [facility] BP Systolic 2021-10-12 11:33:00 126 mm[Hg] BP [...] URINALYSIS W/O SPECIFIC GRAVITY 2022-07-04 00:00:00 Ena Galan [facility] GARDASIL 9 (HPV 9V) VACCINE 2022-05-25 14:12:46 Stephy Wiggins [facility] GARDASIL 9 (HPV 9V) VACCINE 2022-01-26 18:59:55 Stephy Wiggins [facility] Plan of Care Planned Activity Planned Date Details Comments Source Goal Plan of Care Note [code = 21021-7] Goal Plan of Care Note [code = 23751-2] Goal Plan of Care Note [code = 94551-7] Goal Plan of Care Note [code = 31547-1] Goal Plan of Care Note [code = 25407-8] Goal Plan of Care Note [code = 65046-9] Goal Plan of Care Note [code = 72794-4] Goal Plan of Care Note [code = 92933-7] Goal Plan of Care Note [code = 19193-6] Goal Plan of Care Note [code = 88542-9] Goal Plan of Care Note [code = 68733-0] Goal Plan of Care Note [code = 40134-1] Goal Plan of Care Note [code = 97474-9] Goal Plan of Care Note [code = 90083-3] Goal Plan of Care Note [code = 49444-1] Goal Plan of Care Note [code = 25883-9] Goal Plan of Care Note [code = 01496-2] Goal Plan of Care Note [code = 86668-1] Goal Plan of Care Note [code = 92946-8] Goal Plan of Care Note [code = 53275-7] Goal Plan of Care Note [code = 44983-9] Goal Plan of Care Note [code = 61594-2] Goal Plan of Care Note [code = 66533-1] Goal Plan of Care Note [code = 86495-0] Goal Plan of Care Note [code = 62295-7] Goal Plan of Care Note [code = 54154-9] Goal Plan of Care Note [code = 59138-3] Goal Plan of Care Note [code = 27258-5] Goal Plan of Care Note [code = 46599-6] Goal Plan of Care Note [code = 06041-1] Goal Plan of Care Note [code = 29069-1] Goal Plan of Care Note [code = 42162-9] Goal Plan of Care Note [code = 71013-0] Goal Plan of Care Note [code = 97068-8] Goal Plan of Care Note [code = 03313-1] Goal Plan of Care Note [code = 61151-7] Goal Plan of Care Note [code = 48052-9] Goal Plan of Care Note [code = 04024-9] Encounters Start Date/Time End Date/Time Encounter Type Admission Type Attending [facility] Facility Care Department Encounter ID Source 2023-12-20 00:00:00 2024-01-20 18:19:48 Patient Secure Msg Doctor Unassigned, [place] Doctor Unassigned, Gasquet [facility] 1.2.840.114 350.1.13.10 4.2.7.2.686 [id number] 134 [id number] [facility] 2023-12-06 09:30:00 2023-12-06 10:01:21 Outpatient STEPHY STONE VIEN [facility] [id number] [facility] 2023-12-06 09:30:00 2023-12-06 10:01:21 Office Visit Stephy Wiggins [facility] 1.2.840.114 350.1.13.10 4.2.7.2.686 [id number] 134 [id number] [facility] 2023-05-31 00:00:00 2023-05-31 00:00:00 RefEna Holland [facility] 1.2.840.114 350.1.13.10 4.2.7.2.686 [id number] 134 [id number] [facility] 2023-05-16 08:30:00 2023-05-16 08:30:00 Outpatient R IKE WIGGINSEN [facility] [id number] [facility] 2023-05-11 00:00:00 2023-05-11 00:00:00 Patient Secure Msg Stephy Wiggins [facility] 1.2.840.114 350.1.13.10 4.2.7.2.686 [id number] 134 [id number] [facility] 2022-12-19 15:01:26 2022-12-19 15:01:[address] [facility] [id number] Tk Shi Neftaly 2022-12-01 00:00:00 2022-12-01 00:00:00 Case Management Stephy Wiggins [facility] 1.2.840.114 350.1.13.10 4.2.7.2.686 [id number] 134 [id number] [facility] 2022-11-28 09:30:00 2022-11-28 09:38:27 Outpatient R STEPHY WIGGINS VIEN [facility] [id number] [facility] 2022-11-28 09:30:00 2022-11-28 09:38:27 Office Visit Stephy Wiggins [facility] 1.2.840.114 350.1.13.10 4.2.7.2.686 [id number] 134 [id number] [facility] 2022-07-06 00:00:00 2022-07-06 00:00:00 Patient Secure Msg Hodan Mabry [facility] 1.2840.114 350.1.13.10 4.2.7.2.686 [id number] 134 [id number] [facility] 2022-07-05 00:00:00 2022-07-05 00:00:00 Case Management Ena Galan [facility] 1.2840.114 350.1.13.10 4.2.7.2.686 [id number] 134 [id number] [facility] 2022-07-05 00:00:00 2022-07-05 00:00:00 Patient Secure Msg Ena Galan [facility] 1.2.840.114 350.1.13.10 4.2.7.2.686 [id number] 134 [id number] [facility] 2022-07-04 10:00:00 2022-07-04 10:53:46 Outpatient R ENA GALAN [facility] [id number] [facility] 2022-07-04 10:00:00 2022-07-04 10:53:46 Office Visit Ena Galan [facility] 1.2.840.114 350.1.13.10 4.2.7.2.686 [id number] 134 [id number] [facility] 2022-07-04 00:00:00 2022-07-04 00:00:00 [facility] 1.2.840.114 350.1.13.10 4.2.7.2.686 [id number] 134 [id number] [facility] 2022-05-25 08:00:00 2022-05-25 08:15:00 Nurse Visit Nurse, [facility] Ena [facility] 1.2.840.114 350.1.13.10 4.2.7.2.686 [id number] 134 [id number] [facility] 2022-05-25 08:00:00 2022-05-25 08:00:00 Outpatient R [facility] [id number] [facility] 2022-05-25 08:00:00 2022-05-25 08:00:00 Outpatient R [facility] [id number] [facility] 2022-02-02 13:00:00 2022-02-02 13:00:00 Office Visit Adama [facility] 1.2.840.114 350.1.13.10 4.2.7.2.686 [id number] 134 [id number] [facility] 2022-02-02 13:00:00 2022-02-02 11:48:47 Outpatient R [facility] [id number] [facility] 2022-02-01 00:00:00 2022-02-01 00:00:00 Patient Secure Stephy Clayton Romulo [facility] 1.2.840.114 350.1.13.10 4.2.7.2.686 [id number] 134 [id number] [facility] 2022-01-26 14:00:00 2022-01-26 14:00:00 Outpatient R [facility] [id number] [facility] 2022-01-26 14:00:00 2022-01-26 14:00:00 Nurse Visit Nurse, [facility] 1.2.840.114 350.1.13.10 4.2.7.2.686 [id number] 134 [id number] [facility] 2022-01-24 08:00:00 2022-01-24 08:00:00 Outpatient R [facility] [id number] [facility] 2021-11-29 00:00:00 2021-11-29 00:00:00 Outpatient Visit [id number] 2021-11-25 00:00:00 2021-11-25 00:00:00 Patient Secure Msg Stephy Wiggins [facility] 1.2.840.114 350.1.13.10 4.2.7.2.686 [id number] 134 [id number] [facility] 2021-11-25 00:00:00 2021-11-25 00:00:00 Telephone Stephy Wiggins [facility] 1.2.840.114 350.1.13.10 4.2.7.2.686 [id number] 134 [id number] [facility] 2021-11-24 00:00:00 2021-11-24 00:00:00 Patient Secure Msg Stephy Wiggins [facility] 1.2.840.114 350.1.13.10 4.2.7.2.686 [id number] 134 [id number] [facility] 2021-11-24 00:00:00 2021-11-24 00:00:00 Case Management Ena Galan [facility] 1.2.840.114 350.1.13.10 4.2.7.2.686 [id number] 134 [id number] [facility] 2021-11-23 00:00:00 2021-11-23 00:00:00 Patient Secure Msg [facility] 1.2.840.114 350.1.13.10 4.2.7.2.686 [id number] 134 [id number] [facility] 2021-11-22 08:00:00 2021-11-22 09:06:55 [id number] 2021-11-22 08:00:00 2021-11-22 09:06:55 Office Visit Stephy Wiggins [facility] 1.2.840.114 350.1.13.10 4.2.7.2.686 [id number] 134 [id number] [facility] 2021-10-12 00:00:00 2021-10-12 00:00:00 Outpatient Visit [id number] 2021-01-20 14:16:03 2021-01-20 14:52:14 [facility] 1.2.840.114 350.1.13.10 4.2.7.2.686 [id number] 134 [id number] [facility] 2021-01-20 14:30:00 2021-01-20 14:30:00 Outpatient R STEPHY WIGGINS [facility] [id number] [facility] 2021-01-14 00:00:00 2021-01-14 00:00:00 Patient Secure Stephy Clayton [facility] 1.2.840.114 350.1.13.10 4.2.7.2.686 [id number] 134 [id number] [facility] 2020-10-15 13:30:00 2020-10-15 13:30:00 [id number] Results Test Description Test Time Test Comments Results Result Co mments Source [facility] W/O SPECIFIC [id number] 15:16:00* Test Item Value Reference Range Interpretation [...] = [id number]) neg Negative - Negati ve [facility] Notes Date/Time Note Provider Source 2023-05-15 09:36:22 Returned pt call to assist in scheduling. Sooner appointment provided. Pt's insurance is no longer active. Pt will call back after she speaks with insurance company to schedule an appointment. 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
[2024-02-16 21:17] LABS: Absolute Eosinophils 0.2 K/uL (0-0.5); Absolute Lymphocytes (CBC) 2.4 K/uL (0.7-4.9); Absolute Monocytes 0.8 K/uL (0.1-1.3); Absolute Neutrophil 5.6 K/uL (1.8-8.0); Basophils % 0.3 % (0-1.3); Eosinophils % 2.7 % (0-4.4); Hemoglobin 12.4 g/dL (12.0-15.0); Lymphocytes % 26.4 % (15.3-44.8); MCH 29.3 pg (27.0-35.0); MCHC 32.7 g/dL (32.0-36.0); MCV 89.5 fL (80-100); MPV 9.2 fL (7.6-11.3); Monocytes % 9.3 % (3.3-12.3); Neutrophils % 61.3 % (41.7-73.7); Platelets 215 thou/uL (152-406); RBC Red Blood Cell Count 4.24 M/uL (3.86-4.86); Red Cell Distribution Width 12.1 % (12.1-15.2)
[2024-02-16] MEDS ORDERED: ONDANSETRON 4 MG/2 ML VIAL ONE (21:34)
[2024-02-16] MEDS ORDERED: FAMOTIDINE 20 MG/2 ML VIAL IV ONE (21:34)
[2024-02-16 21:35] LABS: SARS-CoV-2 Antigen CONTROL BLUE LINE VIS/BG OK; SARS-CoV-2 Antigen Rapid Res Negative (Negative)
[2024-02-16] MEDS ORDERED: NA CHLORIDE 0.9% 1,000 ML ONE (21:35)
[2024-02-16 21:45] LABS: Albumin 3.8 g/dL (3.4-5.0); Albumin/Globulin Ratio 0.9 (1.1-1.8); Anion Gap 6.9 mEq/L (5.0-15.0); Bilirubin Total 0.3 mg/dL (0.2-1.0); Globulin 4.1 g/dL (2.3-3.5); Potassium 3.9 mEq/L (3.5-5.1); Protein, Total 7.9 g/dL (6.4-8.2)
[2024-02-16 22:02] LABS: Specific Gravity > 1.030 (1.005-1.030); Sqamous Epithelial <5 /HPF (None Seen); Urine Bacteria None Seen /HPF (<20); Urine Bilirubin NEGATIVE (Negative); Urine Blood Negative (Negative); Urine Clarity Clear (Clear); Urine Color Light-Yellow (Yellow); Urine Crystals Unidentified Few /HPF (None Seen); Urine Culture Reflex Order NOT NEEDED; Urine Glucose NEGATIVE (Negative); Urine Ketones TRACE (Negative); Urine Microscopic Reflex YN ORDER UMIC; Urine Mucus 2+ /HPF (None Seen); Urine Nitrite NEGATIVE (Negative); Urine Protein 1+ (Negative); Urine RBC <5 /HPF (None Seen); Urine Urobilinogen 1+ (Normal); Urine WBC <5 /HPF (<5); Urine pH 7.5 (5.0-7.0)
[2024-02-16 22:11] LABS: Specific Gravity > 1.030 (1.005-1.030)
--- NOTE | 2024-02-16 23:28 | RAD REPORT ---
EXAMINATION: CT ABDOMEN AND PELVIS WITH CONTRAST CLINICAL INDICATION: Female, 24 years old.upper abdomen pain TECHNIQUE: CT abdomen and pelvis was performed, after the administration of IV contrast, as per [facility]. Axial, sagittal and coronal reconstructions were obtained. One or more of the following dose reduction techniques were used: Automated exposure control, adjustment of the mA and/o r kV according to patient size, and/or iterative reconstruction. Unless otherwise specified, incidental findings do not require dedicated imaging follow-up. [id number]. COMPARISON: No prior exam. FINDINGS: LOWER CHEST: The visualized lung bases are clear. LIVER: Normal in size and contour. No focal lesion. GALLBLADDER/BILE DUCT: No biliary ductal dilatation.? PANCREAS: No significant abnormality. SPLEEN: Normal size. No focal lesion. ADRENALS: Normal; no mass. KIDNEYS AND URETERS: Normal size and contour. No hydronephrosis. GASTROINTESTINAL TRACT: Stomach is non-dilated. Small bowel has normal course and caliber. No colonic wall thickening or pericolonic inflammatory changes. Normal appendix PERITONEUM: Pelvic free fluid is likely physiologic. LYMPH NODES: No lymphadenopathy. ABDOMINAL AORTA AND OTHER VESSELS: Normal caliber aorta and IVC. URINARY BLADDER: Normal contour. REPRODUCTIVE ORGANS: Probable corpus luteum in the right ovary. MUSCULOSKELETAL: No acute or suspicious osseous abnormality. ADDITIONAL FINDINGS: None. IMPRESSION: No acute or significant abnormalities seen in the abdomen or pelvis. Normal appendix. Pelvic free flu id is likely physiologic.
--- NOTE | 2024-02-17 00:25 | EDPHYS ---
Physician Documentation [facility] Name: Digna Gonzalez Age: 24 yrs Sex: Female : 2000 Arrival Date: 02/16/2024 Time: 20:31 Bed 20 Private MD: ED Physician Seferino Holguin HPI: 02/15 21:05 This 24 yrs old Black Female presents to ER via Ambulatory with complaints of Nausea, cp Cough, Headache, Ear Pain. 21:05 The patient presents to the emergency department with nausea, abdominal pain, of the cp right upper quadrant and left upper quadrant. 21:05 Onset: The symptoms/episode began/occurred 1 week(s) ago. cp 21:05 Associated signs and symptoms: Pertinent positives: cough, sore throat, Pertinent cp negatives: anorexia, constipation, diarrhea, fever. Severity of symptoms: in the emergency department the symptoms are unchanged. 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 - Infectious Disease History:: Denies. - Social history:: Smoking status: unknown. ROS: 21:10 Constitutional: Negative for chills, fever, poor PO intake, cp 21:10 Eyes: Negative for injury, pain, redness, and discharge, cp 21:10 ENT: Positive for ear pain, sore throat, Negative for drainage from ear(s), difficulty swallowing, difficulty handling secretions, 21:10 Cardiovascular: Negative for chest pain, 21:10 Respiratory: Negative for cough, shortness of breath, wheezing, 21:10 Abdomen/GI: Positive for abdominal pain, nausea and vomiting, Negative for diarrhea, constipation, anorexia, 21:10 : Negative for urinary symptoms, 21:10 Neuro: Positive for headache, Negative for altered mental status, 21:10 All other systems are negative, Exam: 21:15 Constitutional: The patient appears in no acute distress, alert, awake, non-toxic, well cp developed, well nourished, 21:15 Head/Face: Normocephalic, atraumatic. cp 21:15 Eyes: Periorbital structures: appear normal, Conjunctiva: normal, no exudate, no injection, Sclera: no appreciated abnormality, Lids and lashes: appear normal, bilaterally, 21:15 ENT: External ear(s): are unremarkable, Ear canal(s): are normal, clear, TM's: dullness, bilaterally, Nose: is normal, Mouth: Lips: moist, Oral mucosa: pink and intact, moist, Posterior pharynx: Airway: no evidence of obstruction, patent, Tonsils: no enlargement, no erythema, no exudate, Voice: is normal, 21:15 Neck: ROM/movement: is normal, is supple, without pain, no range of motions limitations, Lymph nodes: no appreciated lymphadenopathy, 21:15 Chest/axilla: Inspection: normal, 21:15 Cardiovascular: Rate: normal, Rhythm: regular, 21:15 Respiratory: the patient does not display signs of respiratory distress, Respirations: normal, no use of accessory muscles, no retractions, labored breathing, is not present, Breath sounds: are clear throughout, no decreased breath sounds, no stridor, no wheezing, 21:15 Abdomen/GI: Inspection: abdomen appears normal, Bowel sounds: active, all quadrants, Palpation: soft, in all quadrants, moderate abdominal tenderness, in the right upper quadrant and left upper quadrant, rebound tenderness, is not appreciated, involuntary guarding, is not appreciated, 21:15 Back: CVA tenderness, is absent, 21:15 Neuro: Orientation: to person, place \T\ time. Mentation: is normal, Motor: moves all fours, strength is normal, Sensation: is normal, Vital Signs: 20:45 Weight 54.43 kg; Height 5 ft. 6 in. ; Pain 0/10; br2 20:45 BP 116 / 70; Pulse 71; Resp 18 S; Temp 97.2; Pulse Ox 100% on R/A; br2 20:45 BP 112 / 65; Pulse 80; Resp 18; Pulse Ox 100% on R/A; al5 21:00 BP 111 / 94; Pulse 78; Resp 18; Pulse Ox 100% on R/A; al5 21:15 BP 90 / 77; Pulse 74; Resp 17; Pulse Ox 100% on R/A; al5 21:30 BP 119 / 64; Pulse 73; Resp 15; Pulse Ox 100% on R/A; al5 21:45 BP 104 / 78; Pulse 82; Resp 17; Pulse Ox 100% on R/A; al5 22:00 BP 108 / 78; Pulse 78; Resp 16; Pulse Ox 100% on R/A; al5 22:15 BP 112 / 75; Pulse 74; Resp 15; Pulse Ox 100% on R/A; al5 22:30 BP 117 / 65; Pulse 91; Resp 16; Pulse Ox 100% on R/A; al5 22:45 BP 117 / 84; Pulse 80; Resp 18; Pulse Ox 100% on R/A; al5 23:00 BP 120 / 73; Pulse 75; Resp 17; Pulse Ox 100% on R/A; al5 23:17 BP 101 / 56; Pulse 87; Resp 17; Pulse Ox 100% on R/A; al5 23:30 BP 110 / 56; Pulse 79; Resp 17; Pulse Ox 100% on R/A; al5 02/16 00:42 BP 115 / 62; Pulse 82; Resp 16; Pulse Ox 100% on R/A; al5 02/15 20:45 Body Mass Index 19.37 (54.43 kg, 167.64 cm) br2 02/15 20:45 Pain Scale: Adult br2 MDM: 02/15 20:44 Medical Screening Exam initiated 02/16 00:00 Differential diagnosis: Nonspecific abd pain, gastritis, cholecystitis, appendicitis, cp viral gastroenteritis, gastroenteritis. 00:23 Data reviewed: vital signs, nurses notes, lab test result(s), radiologic studies, CT cp scan, plain films, and as a result, I will discharge patient. 00:23 I considered the following discharge prescriptions or medication management in the emergency department Medications were administered in the Emergency Department. See MAR. Independent interpretation of the following test(s) in the Emergency Department X-Ray: My interpretation is chest xray shows concern for infiltrate right middle lobe. Counseling: I had a detailed discussion with the patient and/or guardian regarding the historical points, exam findings, and any diagnostic results supporting the discharge/admit diagnosis, lab results, radiology results, the need for outpatient follow up, a family practitioner, to return to the emergency department if symptoms worsen or persist or if there are any questions or concerns that arise at home. Response to treatment: the patient's symptoms have markedly improved after treatment, and as a result, I will discharge patient. Special discussion: Based on the patient's Hx, exam, and Dx evaluation, there is no indication for emergent surgery or inpatient Tx. It is understood by the patient/guardian that if the Sx's persist or worsen they need to return immediately for re-evaluation. 02/15 20:59 Order name: CBC with Diff; Complete Time: 22:41 02/15 23:39 Interpretation: Reviewed. 02/15 20:59 Order name: CMP; Complete Time: 22:41 02/15 23:38 Interpretation: Normal except: AST 12; ALK 43; GLOB 4.1; A/G 0.9. 02/15 20:59 Order name: Lipase; Complete Time: 22:41 02/15 20:59 Order name: Test, Urine; Complete Time: 22:41 02/15 23:42 Interpretation: Reviewed. 02/15 20:59 Order name: Urinalysis w/ reflexes; Complete Time: 22:41 02/15 23:38 Interpretation: Normal except: Urine SG > 1.030; UKET TRACE; UPH 7.5; UPROT 1+; UUROB cp 1+. 02/15 20:59 Order name: SARS RAPID; Complete Time: 22:41 02/15 23:39 Interpretation: Reviewed. 02/15 20:59 Order name: Influenza Screen (a \T\ B); Complete Time: 22:41 02/15 20:59 Order name: Strep; Complete Time: 22:41 02/15 21:37 Order name: Throat Culture EDWV 02/15 22:43 Order name: CT Abd/Pelvis - IV Contrast Only; Complete Time: 23:37 02/15 23:37 Interpretation: Report reviewed. 02/15 23:47 Order name: XRAY Chest (1 view) 02/15 20:59 Order name: IV Saline Lock; Complete Time: 21:07 02/15 20:59 Order name: Labs collected and sent; Complete Time: 21:07 cp Administered Medications: 02/15 21:47 Drug: Famotidine IVP 20 mg IVP once; dilute with 10 mL 0.9% NaCl; give over 2 minutes al5 Route: IVP; Site: right antecubital; 23:56 Follow up: Response: No adverse reaction; Pain is decreased al5 21:47 Drug: Ondansetron IVP 4 mg IVP once; over 2 minutes Route: IVP; Site: right antecubital;al5 23:56 Follow up: Response: No adverse reaction; Nausea is decreased al5 21:47 Drug: NS 0.9% IV 1000 ml IV at 1 bolus Per protocol; to be given as a bolus over 60 al5 minutes Route: IV; Rate: 1 bolus; Site: right antecubital; 02/16 00:30 Follow up: Response: No adverse reaction; IV Status: Completed infusion; IV Intake: al5 1000ml 00:30 Drug: Rocephin IV 1 grams IV at calculated rate once; Given slow IV push per pharmacy al5 instructions Route: IV; Rate: calculated rate; Site: right antecubital; 00:42 Follow up: Response: No adverse reaction; IV Status: Completed infusion; IV Intake: [id number] 00:30 Drug: AZITHromycin PO 500 mg PO once Route: PO; al5 00:42 Follow up: Response: No adverse reaction al5 Disposition Summary: 02/17/24 00:24 Discharge Ordered Notes: Location: Home cp Problem: new cp Symptoms: have improved cp Condition: Stable cp Diagnosis - Upper abdominal pain, unspecified cp - Nausea cp - Cough cp Followup: cp - With: Private Physician - When: 2 - 3 days - Reason: Worsening of condition Discharge Instructions: - Discharge Summary Sheet cp - Abdominal Pain, Adult cp - Nausea, Adult cp - Cough, Adult cp Forms: - Medication Reconciliation Form cp - Antibiotic Education cp - Prescription Opioid Use cp - Patient Portal Instructions cp - Leadership Thank You Letter cp Prescriptions: - Bromfed DM 2-30-10 mg/5 mL Oral syrup - administer 10 milliliter ORAL route every 8 hours as needed for cold symptoms; cp 240 milliliter; Refills: 0, Product Selection Permitted - Zofran 4 mg Oral Tablet - take 1 tablet ORAL route every 12 hours As needed; 20 tablet; Refills: 0, cp Product Selection Permitted - Zithromax Z-Yovani 250 mg Oral Tablet - take 1 tablet ORAL route as directed for 5 days Day 1 - take two (2) tablets cp one time. Day 2, 3, 4 , 5 take one (1) tablet once daily.; 6 tablet; Refills: 0, Product Selection Permitted Signatures: Dispatcher [facility] Seferino Villa PA PA cp Langhorst, Amanda, RN RN al5 Agueda Harrison RN RN br2 Corrections: (The following items were deleted from the chart) 02/15 21:00 20:59 CBC+H.LAB.BRZ ordered. EDMS EDMS 21:00 20:59 COMPREHENSIVE METABOLIC PANEL+C.LAB.BRZ ordered. EDMS EDMS 21:00 20:59 LIPASE+C.LAB.BRZ ordered. EDMS EDMS 21:00 20:59 Test, Urine+UC.LAB.BRZ ordered. EDMS EDMS 21:00 20:59 Urinalysis+U.LAB.BRZ ordered. EDMS EDMS 21:00 20:59 SARS-COV-2 Antigen Rapid+I.LAB.BRZ ordered. EDMS EDMS 21:00 20:59 Influenza Screen (A \T\ B)+BA.LAB.BRZ ordered. EDMS EDMS 21:00 20:59 Group A Streptococcus Rapid Sc+BA.LAB.BRZ ordered. EDMS EDMS
--- NOTE | 2024-02-17 00:25 | ER ---
Nurse's Notes [facility] Name: Digna Gonzalez Age: 24 yrs Sex: Female : 2000 Arrival Date: 02/16/2024 Time: 20:31 Bed 20 Private MD: Diagnosis: Upper abdominal pain, unspecified;Nausea;Cough Presentation: 02/15 20:45 Chief complaint: Patient states: NAUSEA, COUGH, SORE THROAT, HEADACHE, STOMACH ACHE, br2 DENIES VOMITING. Coronavirus screen: Client denies travel out of the [place] in the last 14 days. Client presents with at least one sign or symptom that may indicate coronavirus-19. Standard/surgical mask placed on the client. Ebola Screen: Patient denies travel to an Ebola-affected area in the 21 days before illness onset. Initial Sepsis Screen: Does the patient meet any 2 criteria? No. Patient's initial sepsis screen is negative. Does the patient have a suspected source of infection? No. Patient's initial sepsis screen is negative. Risk Assessment: Do you want to hurt yourself or someone else? Patient reports no desire to harm self or others. Onset of symptoms was February 09, 2024. 20:45 Acuity: BALTAZAR 4 br2 20:53 Method Of Arrival: Ambulatory br2 Triage Assessment: 20:55 General: Appears in no apparent distress. comfortable, Behavior is calm, cooperative. br2 Pain: Denies pain. EENT: No signs and/or symptoms were reported regarding the EENT system. Neuro: [place]edo Agitation-Sedation Scale (RASS): 0 - Alert and Calm. Cardiovascular: Capillary refill < 3 seconds. Respiratory: Airway is patent Respiratory effort is even, unlabored, Respiratory pattern is regular, symmetrical, Breath sounds are clear bilaterally. GI: Reports nausea, WEAKNESS. : No signs and/or symptoms were reported regarding the genitourinary system. Derm: Skin is intact, Skin is dry, Skin is normal, Skin temperature is warm. Musculoskeletal: Circulation, motion, and sensation intact. Capillary refill < 3 seconds, Range of motion: intact in all extremities. 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 - Infectious Disease History:: Denies. - Social history:: Smoking status: unknown. Screenin:49 [facility] ED Fall Risk Assessment (Adult) History of falling in the last 3 months, al5 including since admission No falls in past 3 months (0 pts) Confusion or Disorientation No (0 pts) Intoxicated or Sedated No (0 pts) Impaired Gait No (0 pts) Mobility Assist Device Used No (0 pt) Altered Elimination No (0 pt) Score/Fall Risk Level 0 - 2 = Low Risk Oriented to surroundings, Maintained a safe environment, Hourly rounding (assess needs \T\ fall precautionary measures) done. Abuse screen: Denies threats or abuse. Denies injuries from another. Nutritional screening: No deficits noted. Tuberculosis screening: No symptoms or risk factors identified. Assessment: 21:48 General: Appears in no apparent distress. Behavior is calm, cooperative. Pain: Denies al5 pain. Neuro: Level of Consciousness is awake, alert, obeys commands, Oriented to person, place, time, situation. Cardiovascular: Capillary refill < 3 seconds Patient's skin is warm and dry. Respiratory: Airway is patent Respiratory effort is even, unlabored, Respiratory pattern is regular, symmetrical. Respiratory: Reports cough that is. GI: Abdomen is flat, Reports nausea. : No signs and/or symptoms were reported regarding the genitourinary system. EENT: No signs and/or symptoms were reported regarding the EENT system. Derm: Skin is intact, Skin is pink, warm \T\ dry. normal. Musculoskeletal: No signs and/or symptoms reported regarding the musculoskeletal system. 22:41 Reassessment: Patient appears in no apparent distress at this time. No changes from al5 previously documented assessment. Patient and/or family updated on plan of care and expected duration. Pain level reassessed. Patient is alert, oriented x 3, equal unlabored respirations, skin warm/dry/pink. 23:54 Reassessment: Patient appears in no apparent distress at this time. Patient and/or al5 family updated on plan of care and expected duration. Pain level reassessed. Patient is alert, oriented x 3, equal unlabored respirations, skin warm/dry/pink. Patient states feeling better. Patient states symptoms have improved. 02/16 00:00 Reassessment: patient able to tolerate foods and liquids, provider notified. al5 Vital Signs: 02/15 20:45 Weight 54.43 kg; Height 5 ft. 6 in. ; Pain 0/10; br2 20:45 BP 116 / 70; Pulse 71; Resp 18 S; Temp 97.2; Pulse Ox 100% on R/A; br2 20:45 BP 112 / 65; Pulse 80; Resp 18; Pulse Ox 100% on R/A; al5 21:00 BP 111 / 94; Pulse 78; Resp 18; Pulse Ox 100% on R/A; al5 21:15 BP 90 / 77; Pulse 74; Resp 17; Pulse Ox 100% on R/A; al5 21:30 BP 119 / 64; Pulse 73; Resp 15; Pulse Ox 100% on R/A; al5 21:45 BP 104 / 78; Pulse 82; Resp 17; Pulse Ox 100% on R/A; al5 22:00 BP 108 / 78; Pulse 78; Resp 16; Pulse Ox 100% on R/A; al5 22:15 BP 112 / 75; Pulse 74; Resp 15; Pulse Ox 100% on R/A; al5 22:30 BP 117 / 65; Pulse 91; Resp 16; Pulse Ox 100% on R/A; al5 22:45 BP 117 / 84; Pulse 80; Resp 18; Pulse Ox 100% on R/A; al5 23:00 BP 120 / 73; Pulse 75; Resp 17; Pulse Ox 100% on R/A; al5 23:17 BP 101 / 56; Pulse 87; Resp 17; Pulse Ox 100% on R/A; al5 23:30 BP 110 / 56; Pulse 79; Resp 17; Pulse Ox 100% on R/A; al5 02/16 00:42 BP 115 / 62; Pulse 82; Resp 16; Pulse Ox 100% on R/A; al5 02/15 20:45 Body Mass Index 19.37 (54.43 kg, 167.64 cm) br2 02/15 20:45 Pain Scale: Adult br2 ED Course: 02/15 20:33 Patient arrived in ED. jj6 20:43 Seferino Villa PA is PHCP. cp 20:44 Seferino Holguin MD is Attending Physician. cp 20:48 Triage completed. br2 21:07 Inserted saline lock: 20 gauge in right antecubital area, using aseptic technique. af3 Blood collected. Flushed with 10 mL NS. 21:07 CBC with Diff Sent. af3 21:07 CMP Sent. af3 21:07 Lipase Sent. af3 21:07 Strep Sent. af3 21:08 Influenza Screen (a \T\ B) Sent. af3 21:08 SARS RAPID Sent. af3 21:22 Cassie Osuna, RN is Primary Nurse. al5 21:49 No provider procedures requiring assistance completed. al5 21:49 Patient has correct armband on for positive identification. Bed in low position. Call al5 light in reach. Side rails up X 1. Provided Education on: plan of care. 21:49 Arm band placed on right wrist. Patient placed in the treatment room, on a stretcher. al5 23:19 CT Abd/Pelvis - IV Contrast Only In Process Unspecified. EDMS 11 00:37 XRAY Chest (1 view) In Process Unspecified. EDMS 00:43 IV discontinued, intact, bleeding controlled, No redness/swelling at site. Pressure al5 dressing applied. Administered Medications: 02/15 21:47 Drug: Famotidine IVP 20 mg IVP once; dilute with 10 mL 0.9% NaCl; give over 2 minutes al5 Route: IVP; Site: right antecubital; 23:56 Follow up: Response: No adverse reaction; Pain is decreased al5 21:47 Drug: Ondansetron IVP 4 mg IVP once; over 2 minutes Route: IVP; Site: right antecubital;al5 23:56 Follow up: Response: No adverse reaction; Nausea is decreased al5 21:47 Drug: NS 0.9% IV 1000 ml IV at 1 bolus Per protocol; to be given as a bolus over 60 al5 minutes Route: IV; Rate: 1 bolus; Site: right antecubital; 02/16 00:30 Follow up: Response: No adverse reaction; IV Status: Completed infusion; IV Intake: al5 1000ml 00:30 Drug: Rocephin IV 1 grams IV at calculated rate once; Given slow IV push per pharmacy al5 instructions Route: IV; Rate: calculated rate; Site: right antecubital; 00:42 Follow up: Response: No adverse reaction; IV Status: Completed infusion; IV Intake: [id number] 00:30 Drug: AZITHromycin PO 500 mg PO once Route: PO; al5 00:42 Follow up: Response: No adverse reaction al5 Medication: 02/15 21:49 VIS not applicable for this client. al5 Intake: 02/16 00:30 IV: 1000ml; Total: 1000ml. al5 00:42 IV: 50ml; Total: 1050ml. al5 Outcome: 00:24 Discharge ordered by . cp 00:43 Discharged to home ambulatory, with significant other, al5 00:43 Condition: good 00:43 Discharge instructions given to patient, Instructed on discharge instructions, follow up and referral plans. medication usage, Demonstrated understanding of instructions, follow-up care, medications, Prescriptions given X 3, 00:43 Patient left the ED. al5 Signatures: Dispatcher [employer] EDMS Seferino Villa PA PA cp Jeffries, Jennifer [email or web address] Cassie Osuna RN RN al5 Agueda Harrison RN RN br2 Perlita Zimmerman3 Corrections: (The following items were deleted from the chart) 02/15 20:49 20:45 Method Of Arrival: Ambulatory brShirley blackmon
[2024-02-17] MEDS ORDERED: AZITHROMYCIN 250 MG TAB ONE (00:26)
[2024-02-17] MEDS ORDERED: CEFTRIAXONE 1000 MG/VIAL ONE (00:26)
[2024-02-17] MEDS ORDERED: NA CHLORIDE 0.9% 50 ML ONE (00:27)
[2024-02-17 01:07] VITALS: TEMP 97.2; O2SAT 100
[2024-02-17 01:25] VITALS: BP 115/62
--- NOTE | 2024-02-17 02:32 | RAD REPORT ---
EXAM: XR Chest, 1 View CLINICAL HISTORY: The patient is 24 years old and is Female; COUGH TECHNIQUE: Frontal view of the chest. COMPARISON: No relevant prior studies available. FINDINGS: LUNGS: Unremarkable. No consolidation. PLEURAL SPACE: Unremarkable. No pneumothorax. HEART: Unremarkable. No cardiomegaly. MEDIASTINUM: Unremarkable. Normal mediastinal contour. BONES/JOINTS: Unremarkable. No acute fracture. UPPER ABDOMEN: Unremarkable as visualized. IMPRESSION: No acute cardiopulmonary process. Electronically signed by: Lesly Chin MD 02/17/2024 01:15 AM CDT Due to temporary technical issues with the PACS/[employer] reporting system, reports are being alissa d by the in-house radiologist without review as a courtesy to ensure prompt reporting the interpreting radiologist is fully responsible for the content of the report. Transcribed Date/Time: 02/17/2024 2:31 AM
== END 2024-02-17 00:43 | disposition home or self-care (01) ==
LOC: ER 20:31
DX: R11.0 Nausea (principal); R05.9 Cough, unspecified; R10.12 Left upper quadrant pain; R10.11 Right upper quadrant pain; Z11.52 Encounter for screening for COVID-19
CPT/HCPCS: 36415; 71045; 74177; 80053; 81001; 81025; 83690; 85025; 87070; 87081; 87804; 87811; 96361; 96374; 96375; 99284; J0696; J2405; J7030; Q9967

== ENCOUNTER 2024-04-25 16:43 | Emergency (ER) | payer SELFPAY ==
--- OUTSIDE RECORDS SUMMARY | 2024-04-25 16:46 | XMS REPORT | Continuity of Care Document ---
Author Name Unknown Address [address] [facility] [place] [address] [facility] thconnect Address [address] [facility] [address] [place] [address] Care Team Providers Care Power Originator Name Role Phone Kisha Lincoln Primary Care Physician STEPHY WIGGINS Attending Clinician Unavailable STEPHY WIGGINS Attending Clinician Unavailable Doctor Unassigned, Jan [place] Attending Clinician U Stephy Storm MD Attending Clinician Ena Galan PA-C Attending Clinician ENA GALAN Attending Clinician Unavailable Clotilde MCGINNIS, Hodan Attending Clinician Unavailobi paul Nurse, [facility] Attending Clinician Un available Payers Payer Name Policy Type Policy Number Effective Date Expirati on Date Source [facility] [id number] 2020 00:00:00 [facility] [id number] 2020 00:00:00 Problems Condition Name Condition Details Condition Category Status Onset Date Resolution Date Last Treatment Date Treating Clinician Comments Source Well woman exam (no gynecologi vanessa exam) Well woman exam (no gynecologi vanessa exam) Disease Active 10-15 00:00: 00 [facility] Nexplanon in place Nexplanon in place Disease Resolve d 10-15 00:00: 00 2023-12-06 00:00:00 2023-12-06 10:15:10 [facility] Allergies, Adverse Reactions, Alerts Allergy Name Allergy Type Status Severity Reaction(s) Onset Date Inactive Date Treating Clinician Comments Source NO KNOWN ALLERGIE S Drug Class Active [facility] Social History Social Habit Start Date Stop Date Quantity Comments Source [facility] History of tobacco use Passive smoker [facility] Alcoholic beverage intake 2023-12-06 00:00:00 2023-12-06 00:00:00 Lifetime non-drinker (finding) [facility] Alcohol Comment 2022-11-28 00:00:00 2022-11-28 00:00:00 quit [facility] Alcohol intake 2022-11-28 00:00:00 2022-11-28 00:00:00 Lifetime non-drinker (finding) [facility] Exposure to SARS-CoV-2 (event) 2022-06-23 00:00:00 2022-07-03 11:46:00 Not sure [facility] Tobacco use and exposure 2021-11-22 00:00:00 2021-11-22 00:00:00 Smokeless tobacco non-user [facility] History of Social function 2021-11-22 00:00:00 2021-11-22 00:00:00 [facility] Sex assigned at 2002 00:00:00 2000 00:00:00 [facility] Smoking Status Start Date Stop Date Source Never smoked tobacco [facility] Medications Ordered Medication Name Filled Medication Name Start Date Stop Date Current Medication? Ordering Clinician Indication Dosage Frequency Signature (SIG) Comments Components Source metroNIDAZO LE (FLAGYL) 500 mg tablet 12-01 00:00: 00 12-09 04:59 :00 No [id number] 500mg Take 1 tablet by mouth in the morning and 1 tablet in the evening. Do all this for 7 days. [facility] metroNIDAZO LE 500 mg tablet 07-05 00:00: 00 12-05 00:00 :00 No [id number] 500mg Take 1 tablet by mouth every 12 (twelve) hours. [facility] fluconazole 150 mg tablet 07-05 00:00: 07-06 04:59 :00 No [id number] 150mg Take 1 tablet by mouth once now for 1 dose. [facility] Dose Unknown 8-15 00:00: 00 No 500 Dose Unknown 8-15 00:00: 00 No 600 doxycycline hyclate 100 mg tablet 8-10 00:00: 00 07-04 00:00 :00 No [id number] 100mg Take 1 tablet by mouth in the morning and 1 tablet in the evening. [facility] Nexplanon 68 mg subdermal implant 10-12 00:00: [...] IM PFIZER (PEREZ TOP) 2023-07-21 00:00:00 Completed [facility] HPV9 2022-05-25 00:00:00 Completed [facility] HPV9 2022-05-25 00:00:00 Completed [facility] HPV9 2022-05-25 00:00:00 Completed [facility] HPV9 2022-05-25 00:00:00 Completed [facility] HPV9 2022-05-25 00:00:00 Completed [facility] HPV9 2022-05-25 00:00:00 Completed [facility] HPV9 2022-05-25 00:00:00 Completed HPV9 2022-01-26 00:00:00 Completed [facility] HPV9 2022-01-26 00:00:00 Completed [facility] HPV9 2022-01-26 00:00:00 Completed [facility] HPV9 2022-01-26 00:00:00 Completed [facility] HPV9 2022-01-26 00:00:00 Completed [facility] HPV9 2022-01-26 00:00:00 Completed [facility] HPV9 2022-01-26 00:00:00 Completed [facility] HPV9 2022-01-26 00:00:00 Completed [facility] HPV9 2022-01-26 00:00:00 Completed [facility] HPV9 2021-11-22 00:00:00 Completed [facility] HPV9 2021-11-22 00:00:00 Completed [facility] HPV9 2021-11-22 00:00:00 Completed [facility] HPV9 2021-11-22 00:00:00 Completed [facility] HPV9 2021-11-22 00:00:00 Completed [facility] HPV9 2021-11-22 00:00:00 Completed [facility] HPV9 2021-11-22 00:00:00 Completed [facility] HPV9 2021-11-22 00:00:00 Completed [facility] HPV9 2021-11-22 00:00:00 Completed [facility] HPV9 2021-11-22 00:00:00 Completed [facility] HPV9 Unknown Completed [facility] HPV9 Unknown Completed [facility] HPV9 Unknown Completed [facility] HPV9 Unknown Completed [facility] HPV9 Unknown Completed [facility] HPV9 Unknown Completed [facility] HPV9 Unknown Completed [facility] HPV9 Unknown Completed [facility] HPV9 Unknown Completed [facility] SARS-COV-2 COVID 19 GLENNA SUCROSE VACCINE 12+, , 0.3 ML (30 MCG), IM PFIZER (PEREZ TOP) Unknown Completed [facility] Vital Signs Vital Name Observation Time Observation Value Comments S kelsy Systolic blood pressure 2023-12-06 14:31:00 119 mm[Hg] [facility] Diastolic blood pressure 2023-12-06 14:31:00 76 mm[Hg] [facility] Heart rate 2023-12-06 14:31:00 75 /min [facility] Body temperature 2023-12-06 14:31:00 36.83 Betty [facility] Body height 2023-12-06 14:31:00 167.6 cm [facility] Body weight 2023-12-06 14:31:00 54.159 kg [facility] BMI 2023-12-06 14:31:00 19.27 kg/m2 [facility] Systolic blood pressure 2022-11-28 14:26:00 116 mm[Hg] [facility] Diastolic blood pressure 2022-11-28 14:26:00 79 mm[Hg] [facility] Heart rate 2022-11-28 14:26:00 71 /min [facility] Body temperature 2022-11-28 14:26:00 36.67 Betty [facility] Body height 2022-11-28 14:26:00 167.6 cm [facility] Body weight 2022-11-28 14:26:00 53.162 kg [facility] BMI 2022-11-28 14:26:00 18.92 kg/m2 [facility] Systolic blood pressure 2022-07-04 14:52:00 117 mm[Hg] [facility] Diastolic blood pressure 2022-07-04 14:52:00 80 mm[Hg] [facility] Heart rate 2022-07-04 14:52:00 78 /min [facility] Body temperature 2022-07-04 14:52:00 36.72 Betty [facility] Respiratory rate 2022-07-04 14:52:00 18 /min [facility] Body height 2022-07-04 14:52:00 167.6 cm [facility] Systolic blood pressure 2022-05-25 14:10:00 114 mm[Hg] [facility] Diastolic blood pressure 2022-05-25 14:10:00 72 mm[Hg] [facility] Heart rate 2022-05-25 14:10:00 70 /min [facility] Body temperature 2022-05-25 14:10:00 36.78 Betty [facility] Body height 2022-05-25 14:10:00 167.6 cm [facility] Body weight 2022-05-25 14:10:00 55.702 kg [facility] BMI 2022-05-25 14:10:00 19.82 kg/m2 [facility] Systolic blood pressure 2022-02-02 16:28:00 119 mm[Hg] [facility] Diastolic blood pressure 2022-02-02 16:28:00 80 mm[Hg] [facility] Heart rate 2022-02-02 16:28:00 70 /min [facility] Body temperature 2022-02-02 16:28:00 36.72 Betty [facility] Respiratory rate 2022-02-02 16:28:00 18 /min [facility] Body height 2022-02-02 16:28:00 167.6 cm [facility] Body weight 2022-02-02 16:28:00 59.784 kg [facility] BMI 2022-02-02 16:28:00 21.27 kg/m2 [facility] Systolic blood pressure 2022-01-26 18:42:00 112 mm[Hg] [facility] Diastolic blood pressure 2022-01-26 18:42:00 73 mm[Hg] [facility] Heart rate 2022-01-26 18:42:00 65 /min [facility] Body temperature 2022-01-26 18:42:00 36.83 Betty [facility] Respiratory rate 2022-01-26 18:42:00 16 /min [facility] Body height 2022-01-26 18:42:00 167.6 cm [facility] Body weight 2022-01-26 18:42:00 59.512 kg [facility] BMI 2022-01-26 18:42:00 21.18 kg/m2 [facility] BP Systolic 2021-10-12 11:33:00 126 mm[Hg] [...] W/O SPECIFIC GRAVITY 2022-07-04 00:00:00 Ena Galan [facility] GARDASIL 9 (HPV 9V) VACCINE 2022-05-25 14:12:46 Stephy Wiggins [facility] GARDASIL 9 (HPV 9V) VACCINE 2022-01-26 18:59:55 Stephy Wiggins [facility] Plan of Care Planned Activity Planned Date Details Comments Source Goal Plan of Care Note [code = 55608-7] Goal Plan of Care Note [code = 33066-3] Goal Plan of Care Note [code = 08741-5] Goal Plan of Care Note [code = 71813-6] Goal Plan of Care Note [code = 34918-4] Goal Plan of Care Note [code = 30016-0] Goal Plan of Care Note [code = 30491-3] Goal Plan of Care Note [code = 14148-8] Goal Plan of Care Note [code = 27302-6] Goal Plan of Care Note [code = 29238-0] Goal Plan of Care Note [code = 70824-4] Goal Plan of Care Note [code = 14459-3] Goal Plan of Care Note [code = 84605-5] Goal Plan of Care Note [code = 59790-9] Goal Plan of Care Note [code = 47293-8] Goal Plan of Care Note [code = 30033-1] Goal Plan of Care Note [code = 53237-6] Goal Plan of Care Note [code = 17896-9] Goal Plan of Care Note [code = 22880-8] Goal Plan of Care Note [code = 97116-9] Goal Plan of Care Note [code = 24441-0] Goal Plan of Care Note [code = 09607-9] Goal Plan of Care Note [code = 73192-9] Goal Plan of Care Note [code = 02384-5] Goal Plan of Care Note [code = 49533-8] Goal Plan of Care Note [code = 32353-3] Goal Plan of Care Note [code = 13507-6] Goal Plan of Care Note [code = 73791-9] Goal Plan of Care Note [code = 74899-3] Goal Plan of Care Note [code = 84966-4] Goal Plan of Care Note [code = 34832-4] Goal Plan of Care Note [code = 14657-2] Goal Plan of Care Note [code = 05522-3] Goal Plan of Care Note [code = 97897-1] Goal Plan of Care Note [code = 16582-4] Goal Plan of Care Note [code = 73632-1] Goal Plan of Care Note [code = 13076-8] Goal Plan of Care Note [code = 28601-3] Encounters Start Date/Time End Date/Time Encounter Type Admission Type Attending [facility] Facility Care Department Encounter ID Source 2023-12-20 00:00:00 2024-01-20 18:19:48 Patient Secure Msg Doctor Unassigned, Jan [place] Doctor Unassigned, Jan [place] [facility] 1.2.840.114 350.1.13.10 4.2.7.2.686 [id number] 134 [id number] [facility] 2023-12-06 09:30:00 2023-12-06 10:01:21 Outpatient STEPHY STONE VIEN [facility] [id number] [facility] 2023-12-06 09:30:00 2023-12-06 10:01:21 Office Visit Stephy Wiggins [facility] 1.2.840.114 350.1.13.10 4.2.7.2.686 [id number] 134 [id number] [facility] 2023-05-31 00:00:00 2023-05-31 00:00:00 RefEna Holland [facility] 1.2.840.114 350.1.13.10 4.2.7.2.686 [id number] 134 [id number] [facility] 2023-05-16 08:30:00 2023-05-16 08:30:00 Outpatient R IKE WIGGINSEN [facility] [id number] [facility] 2023-05-11 00:00:00 2023-05-11 00:00:00 Patient Secure Msg Stephy Wiggins [facility] 1.2.840.114 350.1.13.10 4.2.7.2.686 [id number] 134 [id number] [facility] 2022-12-19 15:01:26 2022-12-19 15:01:26 Outpatient SFA [facility] [id number] Tk Shi Neftaly 2022-12-01 00:00:00 2022-12-01 00:00:00 Case Management Stephy Wiggins [facility] 1.2.840.114 350.1.13.10 4.2.7.2.686 [id number] 134 [id number] [facility] 2022-11-28 09:30:00 2022-11-28 09:38:27 Outpatient R STEPHY WIGGINS VIEN [facility] [id number] [facility] 2022-11-28 09:30:00 2022-11-28 09:38:27 Office Visit Stephy Wiggins [facility] 1.2.840.114 350.1.13.10 4.2.7.2.686 [id number] 134 [id number] [facility] 2022-07-06 00:00:00 2022-07-06 00:00:00 Patient Secure Msg Hodan Mabry [facility] 1.2840.114 350.1.13.10 4.2.7.2.686 [id number] 134 [id number] [facility] 2022-07-05 00:00:00 2022-07-05 00:00:00 Case Management Ena Galan [facility] 1.2840.114 350.1.13.10 4.2.7.2.686 [id number] 134 [id number] [facility] 2022-07-05 00:00:00 2022-07-05 00:00:00 Patient Secure Msg Ena Galan [facility] 1.2.840.114 350.1.13.10 4.2.7.2.686 [id number] 134 [id number] [facility] 2022-07-04 10:00:00 2022-07-04 10:53:46 Outpatient R ENA GALAN [facility] [id number] [facility] 2022-07-04 10:00:00 2022-07-04 10:53:46 Office Visit Ena Galan [facility] 1.2.840.114 350.1.13.10 4.2.7.2.686 [id number] 134 [id number] [facility] 2022-07-04 00:00:00 2022-07-04 00:00:00 [facility] 1.2.840.114 350.1.13.10 4.2.7.2.686 [id number] 134 [id number] [facility] 2022-05-25 08:00:00 2022-05-25 08:15:00 Nurse Visit Nurse, [facility] Adama Ena [facility] 1.2.840.114 350.1.13.10 4.2.7.2.686 [id number] 134 [id number] [facility] 2022-05-25 08:00:00 2022-05-25 08:00:00 Outpatient R ADAMA [facility] [id number] [facility] 2022-05-25 08:00:00 2022-05-25 08:00:00 Outpatient R [facility] [id number] [facility] 2022-02-02 13:00:00 2022-02-02 13:00:00 Office Visit Adama [facility] 1.2.840.114 350.1.13.10 4.2.7.2.686 [id number] 134 [id number] [facility] 2022-02-02 13:00:00 2022-02-02 11:48:47 Outpatient R ADAMA [facility] [id number] [facility] 2022-02-01 00:00:00 2022-02-01 00:00:00 Patient Secure Stephy Clayton Romulo [facility] 1.2.840.114 350.1.13.10 4.2.7.2.686 [id number] 134 [id number] [facility] 2022-01-26 14:00:00 2022-01-26 14:00:00 Outpatient R ADAMA [facility] [id number] [facility] 2022-01-26 14:00:00 2022-01-26 14:00:00 Nurse Visit Nurse, [facility] Adama [facility] 1.2.840.114 350.1.13.10 4.2.7.2.686 [id number] 134 [id number] [facility] 2022-01-24 08:00:00 2022-01-24 08:00:00 Outpatient R [facility] [id number] [facility] 2021-11-29 00:00:00 2021-11-29 00:00:00 Outpatient Visit [id number] 2021-11-25 00:00:00 2021-11-25 00:00:00 Patient Secure Msg Stephy Wiggins [facility] 1.2.840.114 350.1.13.10 4.2.7.2.686 [id number] 134 [id number] [facility] 2021-11-25 00:00:00 2021-11-25 00:00:00 Telephone Stephy Wiggins [facility] 1.2.840.114 350.1.13.10 4.2.7.2.686 [id number] 134 [id number] [facility] 2021-11-24 00:00:00 2021-11-24 00:00:00 Patient Secure Msg Stephy Wiggins [facility] 1.2.840.114 350.1.13.10 4.2.7.2.686 [id number] 134 [id number] [facility] 2021-11-24 00:00:00 2021-11-24 00:00:00 Case Management Ena Galan [facility] 1.2.840.114 350.1.13.10 4.2.7.2.686 [id number] 134 [id number] [facility] 2021-11-23 00:00:00 2021-11-23 00:00:00 Patient Secure Msg [facility] 1.2.840.114 350.1.13.10 4.2.7.2.686 [id number] 134 [id number] [facility] 2021-11-22 08:00:00 2021-11-22 09:06:55 [id number] 2021-11-22 08:00:00 2021-11-22 09:06:55 Office Visit Stephy Wiggins [facility] 1.2.840.114 350.1.13.10 4.2.7.2.686 [id number] 134 [id number] [facility] 2021-10-12 00:00:00 2021-10-12 00:00:00 Outpatient Visit [id number] 2021-01-20 14:16:03 2021-01-20 14:52:14 [facility] 1.2.840.114 350.1.13.10 4.2.7.2.686 [id number] 134 [id number] [facility] 2021-01-20 14:30:00 2021-01-20 14:30:00 Outpatient R STEPHY WIGGINS [facility] [id number] [facility] 2021-01-14 00:00:00 2021-01-14 00:00:00 Patient Secure Stephy Clayton [facility] 1.2.840.114 350.1.13.10 4.2.7.2.686 [id number] [facility] 2020-10-15 13:30:00 2020-10-15 13:30:00 [id number] Results Test Description Test Time Test Comments Results Result Co mments Source [facility]/O SPECIFIC [id number] 15:16:00* Test Item Value Reference Range Interpretation [...] = [id number]) neg Negative - Negati ve [facility]
--- NOTE | 2024-04-25 17:54 | RAD REPORT ---
EXAMINATION: Transvaginal OB COMPARISON: None. HISTORY: VAGINAL BLEEDING TECHNIQUE: Real-time ultrasound was performed through the pelvis. A transvaginal scan was performed t o better visualize the intrauterine contents and adnexa. FINDINGS: The uterus is normal size. No IUP seen. Endometrium is mildly thickened measuring up to 8 mm. Both ov aleksandr are normal in size with normal blood flow. IMPRESSION: No IUP is seen. Recommend serial hCG measurements and follow-up pelvic sonogram in 7-10 days.
[2024-04-25 18:26] LABS: Specific Gravity 1.031 (1.005-1.030)
[2024-04-25 18:27] LABS: Specific Gravity > 1.030 (1.005-1.030); Sqamous Epithelial <5 /HPF (None Seen); Transitional Epithelial <5 /HPF (None Seen); Urine Bacteria None Seen /HPF (<20); Urine Bilirubin NEGATIVE (Negative); Urine Blood Negative (Negative); Urine Clarity Turbid (Clear); Urine Color Yellow (Yellow); Urine Culture Reflex Order NOT NEEDED; Urine Glucose NEGATIVE (Negative); Urine Ketones NEGATIVE (Negative); Urine Microscopic Reflex YN ORDER UMIC; Urine Mucus 4+ /HPF (None Seen); Urine Nitrite NEGATIVE (Negative); Urine Protein TRACE (Negative); Urine RBC <5 /HPF (None Seen); Urine Urobilinogen Normal (Normal); Urine WBC <5 /HPF (<5)
[2024-04-25 18:42] LABS: Anion Gap 7.8 mEq/L (5.0-15.0); BUN Blood Urea Nitrogen 15 mg/dL (7-18); Bicarbonate 26 mEq/L (21-32); Glomerular Filtration Rate 110 ml/min (=/>90); Glucose Level 89 mg/dL (74-106); Potassium 3.8 mEq/L (3.5-5.1); Sodium Level 138 mEq/L (136-145)
[2024-04-25 18:46] LABS: HCG, Quantitative < 1 mIU/mL (1-3)
[2024-04-25 18:52] LABS: Absolute Basophils 0.2 K/uL (0-0.5); Absolute Eosinophils 0.1 K/uL (0-0.5); Absolute Lymphocytes (CBC) 1.9 K/uL (0.7-4.9); Absolute Monocytes 0.7 K/uL (0.1-1.3); Basophils % 2.3 % (0-1.3); Eosinophils % 1.6 % (0-4.4); Hematocrit 39.7 % (36.0-45.0); Hemoglobin 13.2 g/dL (12.0-15.0); Lymphocytes % 27.5 % (15.3-44.8); MCH 29.1 pg (27.0-35.0); MCHC 33.1 g/dL (32.0-36.0); MCV 87.9 fL (80-100); MPV 8.7 fL (7.6-11.3); Monocytes % 9.6 % (3.3-12.3); Nucleated Red Blood Cells % 0.1 % (0-0); Platelets 221 thou/uL (152-406); RBC Red Blood Cell Count 4.52 M/uL (3.86-4.86); Red Cell Distribution Width 12.2 % (12.1-15.2)
--- NOTE | 2024-04-25 19:13 | ER ---
Nurse's Notes [facility] Name: Digna Gonzalez Age: 24 yrs Sex: Female : 2000 Arrival Date: 04/25/2024 Time: 16:43 Bed 8 Private MD: Diagnosis: Person with feared health complaint in whom no diagnosis is made Presentation: 04/25 17:14 Chief complaint: Patient states: positive test on the 1st, today bleeding vc1 when wiped. Coronavirus screen: Client denies travel out of the [place] in the last 14 days. At this time, the client does not indicate any symptoms associated with coronavirus-19. Ebola Screen: Patient negative for fever greater than or equal to 101.5 degrees Fahrenheit, and additional compatible Ebola Virus Disease symptoms Patient denies exposure to infectious person. Patient denies travel to an Ebola-affected area in the 21 days before illness onset. No symptoms or risks identified at this time. Initial Sepsis Screen: Does the patient meet any 2 criteria? No. Patient's initial sepsis screen is negative. Does the patient have a suspected source of infection? No. Patient's initial sepsis screen is negative. Risk Assessment: Do you want to hurt yourself or someone else? Patient reports no desire to harm self or others. Onset of symptoms was April 25, 2024. 17:14 Method Of Arrival: Ambulatory vc1 17:14 Acuity: BALTAZAR 4 vc1 Triage Assessment: 17:17 General: Appears in no apparent distress. uncomfortable, Behavior is calm, cooperative, vc1 appropriate for age. Pain: Complains of pain in abdomen. EENT: No deficits noted. No signs and/or symptoms were reported regarding the EENT system. Neuro: Level of Consciousness is awake, alert, obeys commands, Oriented to person, place, time, situation, Appropriate for age. Cardiovascular: No deficits noted. Respiratory: Airway is patent Respiratory effort is even, unlabored, Respiratory pattern is regular, symmetrical, Breath sounds are clear. GI: No deficits noted. No signs and/or symptoms were reported involving the gastrointestinal system. : Reports urinary frequency, vaginal bleeding that is light flow, pink. Derm: Skin is intact, is healthy with good turgor, Skin is dry, Skin is normal, Skin temperature is warm. Musculoskeletal: Circulation, motion, and sensation intact. Range of motion: intact in all extremities. PNEUMATIC TESTER: 17:17 1, LMP 03/25/2024, Verified, EDC 12/30/2024, Gestational age from LMP: vc1 4 weeks 3 days Historical: - Allergies: 17:16 No Known Allergies; vc1 - Home Meds: 17:16 None [Active]; vc1 - PMHx: 17:16 None; vc1 - PSHx: 17:16 None; vc1 - Immunization history:: Client reports having NOT received the Covid vaccine. Flu vaccine is not up to date. - Infectious Disease History:: Denies. - Social history:: Smoking status: Patient denies any tobacco usage or history of. Screenin:16 Abuse screen: Denies threats or abuse. Nutritional screening: No deficits noted. vc1 Tuberculosis screening: No symptoms or risk factors identified. 18:35 [facility] ED Fall Risk Assessment (Adult) History of falling in the last 3 months, kc6 including since admission No falls in past 3 months (0 pts) Confusion or Disorientation No (0 pts) Intoxicated or Sedated No (0 pts) Impaired Gait No (0 pts) Mobility Assist Device Used No (0 pt) Altered Elimination No (0 pt) Score/Fall Risk Level 0 - 2 = Low Risk Oriented to surroundings, Maintained a safe environment, Educated pt \T\ family on fall prevention, incl call for assistance when getting out of bed. Assessment: 18:35 General: Appears in no apparent distress. comfortable, well groomed, well developed, kc6 Behavior is calm, cooperative, appropriate for age. Pain: Denies pain. Neuro: Level of Consciousness is awake, alert, obeys commands, Oriented to person, place, time, situation, Appropriate for age. Cardiovascular: Capillary refill < 3 seconds. Respiratory: Airway is patent Trachea midline Respiratory effort is even, unlabored, Respiratory pattern is regular, symmetrical. GI: No signs and/or symptoms were reported involving the gastrointestinal system. : Urine is cloudy, Reports cramping, vaginal bleeding that is bright red, moderate flow. EENT: No signs and/or symptoms were reported regarding the EENT system. Derm: No signs and/or symptoms reported regarding the dermatologic system. Skin is intact, is healthy with good turgor, Skin is pink, warm \T\ dry. Musculoskeletal: No signs and/or symptoms reported regarding the musculoskeletal system. Circulation, motion, and sensation intact. Range of motion: intact in all extremities. Vital Signs: 17:14 BP 137 / 78; Pulse 78; Resp 14; Temp 98.1; Pulse Ox 100% ; Height 5 ft. 6 in. ; vc1 17:14 Pain 6/10; vc1 18:37 BP 137 / 60; Pulse 80; Resp 16 S; Pulse Ox 100% on R/A; kc6 17:14 Pain Scale: Adult vc1 ED Course: 16:46 Patient arrived in ED. ra3 17:09 Hyade Quan MD is Attending Physician. gb1 17:16 Triage completed. vc1 17:16 Arm band placed on right wrist. vc1 17:50 US Transvaginal Ob In Process Unspecified. EDMS 18:05 Eulogio Reza, RN is Primary Nurse. bp 18:15 Inserted saline lock: 22 gauge in right antecubital area, using aseptic technique. kc6 Blood collected. Flushed with 10 mL NS. 18:35 Patient has correct armband on for positive identification. Bed in low position. Call kc6 light in reach. Side rails up X 1. Adult w/ patient. Pulse ox on. NIBP on. Door closed. Noise minimized. Lights dimmed. Pillow given. 18:35 Patient maintains SpO2 saturation greater than 95% on room air. kc6 19:27 Provided Education on: vaginal bleeding. cp4 19:27 No provider procedures requiring assistance completed. intact, bleeding controlled, No cp4 redness/swelling at site. Pressure dressing applied. Administered Medications: No medications were administered Medication: 19:27 VIS not applicable for this client. cp4 Outcome: 19:13 Discharge ordered by . gb1 19:27 Discharged to home ambulatory, cp4 19:27 Condition: stable 19:27 Discharge instructions given to patient, Instructed on discharge instructions, follow up and referral plans. Demonstrated understanding of instructions, follow-up care, 19:29 Patient left the ED. cp4 Signatures: Dispatcher [employer] [facility] Eulogio Reza, RN RN Leta Solano RN RN vc1 Lesly Millan RN RN kc6 Hayde Quan MD MD gb1 Telma Barclay cp4 Fanny Mccoy ra3
--- NOTE | 2024-04-25 19:13 | EDPHYS ---
Physician Documentation [facility] Name: Digna Gonzalez Age: 24 yrs Sex: Female : 2000 Arrival Date: 04/25/2024 Time: 16:43 Bed 8 Private MD: ED Physician Hayde Quan HPI: 04/25 19:14 This 24 yrs old Black Female presents to ER via Ambulatory with complaints of Vaginal gb1 Bleeding - 2-3 wks preg. 19:14 pt with positive test at home, no abdominal pain or vaginal discharge, some gb1 scant bleeding.. 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 Flu vaccine is not up to date. - Infectious Disease History:: Denies. - Social history:: Smoking status: Patient denies any tobacco usage or history of. Exam: 19:14 Constitutional: This is a well developed, well nourished patient who is awake, alert, gb1 and in no acute distress. Head/Face: Normocephalic, atraumatic. Chest/axilla: Normal chest wall appearance and motion. Nontender with no deformity. No lesions are appreciated. Cardiovascular: Regular rate and rhythm with a normal S1 and S2. No gallops, murmurs, or rubs. Normal PMI, no JVD. No pulse deficits. Respiratory: Lungs have equal breath sounds bilaterally, clear to auscultation and percussion. No rales, rhonchi or wheezes noted. No increased work of breathing, no retractions or nasal flaring. Abdomen/GI: Soft, non-tender, with normal bowel sounds. No distension or tympany. No guarding or rebound. No evidence of tenderness throughout. Skin: Warm, dry with normal turgor. Normal color with no rashes, no lesions, and no evidence of cellulitis. MS/ Extremity: Pulses equal, no cyanosis. Neurovascular intact. Full, normal range of motion. Vital Signs: 17:14 BP 137 / 78; Pulse 78; Resp 14; Temp 98.1; Pulse Ox 100% ; Height 5 ft. 6 in. ; vc1 17:14 Pain 6/10; vc1 18:37 BP 137 / 60; Pulse 80; Resp 16 S; Pulse Ox 100% on R/A; kc6 17:14 Pain Scale: Adult vc1 MDM: 17:44 Medical Screening Exam initiated gb1 19:14 Data reviewed: vital signs, nurses notes, lab test result(s), radiologic studies, gb1 ultrasound. 19:14 ED course: 22 non , US negative. D/c home.. gb1 04/25 17:05 Order name: Abo/rh Typing; Complete Time: 19:27 rn 04/25 17:05 Order name: Basic Metabolic Panel; Complete Time: 19:18 rn 04/25 17:05 Order name: CBC with Diff; Complete Time: 19:18 rn 04/25 17:05 Order name: Test, Urine; Complete Time: 18:40 rn 04/25 17:05 Order name: Quantitative Hcg; Complete Time: 19:18 rn 04/25 17:05 Order name: Urinalysis w/ reflexes; Complete Time: 18:40 rn 04/25 17:05 Order name: US Transvaginal Ob; Complete Time: 18:02 rn 04/25 17:05 Order name: IV Saline Lock; Complete Time: 18:15 rn 04/25 17:05 Order name: Labs collected and sent; Complete Time: 18:15 rn 04/25 17:05 Order name: NPO; Complete Time: 18:15 rn Administered Medications: No medications were administered Disposition Summary: 04/25/24 19:13 Discharge Ordered Notes: Location: Home gb1 Problem: new gb1 Symptoms: have improved gb1 Condition: Stable gb1 Diagnosis - Person with feared health complaint in whom no diagnosis is made gb1 Forms: - Medication Reconciliation Form gb1 - Antibiotic Education gb1 - Prescription Opioid Use gb1 - Patient Portal Instructions gb1 - Leadership Thank You Letter gb1 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
[2024-04-25 19:45] VITALS: TEMP 98.1; O2SAT 100
[2024-04-25 19:51] VITALS: BP 137/60
== END 2024-04-25 19:29 | disposition home or self-care (01) ==
LOC: ER 16:43
DX: Z71.1 Person with feared health complaint in whom no diagnosis is made (principal)
CPT/HCPCS: 36415; 76817; 80048; 81001; 81025; 84702; 85025; 86900; 86901; 99284

== ENCOUNTER 2024-07-12 15:49 | Emergency (ER) | payer SELFPAY ==
--- OUTSIDE RECORDS SUMMARY | 2024-07-12 15:53 | XMS REPORT | Continuity of Care Document ---
Author Name Unknown Address [address] [place] [address] [facility] Address 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 Role Phone Kisha Lincoln Primary Care Physician STEPHY WIGGINS Attending Clinician Unavailable STEPHY WIGGINS Attending Clinician Unavailable Doctor Unassigned, [place] Attending Clinician U Stephy Storm MD Attending Clinician Ena Rowe PA-C Attending Clinician [phone] ENA ROWE Attending Clinician Unavailable Clotilde MCGINNIS, [place]an Attending Clinician [facility], [facility] Attending Clinician Un available Payers Payer Name Policy Type Policy Number Effective Date Expirati on Date Source [facility] [id number] 2020 00:00:00 [facility] [id number] 2020 00:00:00 Problems Condition Name Condition Details Condition Category Status Onset Date Resolution Date Last Treatment Date Treating Clinician Comments Source Well woman exam (no gynecologi vanessa exam) Well woman exam (no gynecologi vanessa exam) Disease Active 10-15 00:00: 00 [facility] Nexplanon in place Nexplanon in place Disease Resolve d 10-15 00:00: 00 2023-12-06 00:00:00 2023-12-06 10:15:10 [facility] Allergies, Adverse Reactions, Alerts Allergy Name Allergy Type Status Severity Reaction(s) Onset Date Inactive Date Treating Clinician Comments Source NO KNOWN ALLERGIE S Drug Class Active [facility] Social History Social Habit Start Date Stop Date Quantity Comments Source [facility] Sexual orientation [facility] History of tobacco use Passive smoker [facility] Alcoholic beverage intake 2023-12-06 00:00:00 2023-12-06 00:00:00 Lifetime non-drinker (finding) [facility] Alcohol Comment 2022-11-28 00:00:00 2022-11-28 00:00:00 quit [facility] Alcohol intake 2022-11-28 00:00:00 2022-11-28 00:00:00 Lifetime non-drinker (finding) [facility] Exposure to SARS-CoV-2 (event) 2022-06-23 00:00:00 2022-07-03 11:46:00 Not sure [facility] Tobacco use and exposure 2021-11-22 00:00:00 2021-11-22 00:00:00 Smokeless tobacco non-user [facility] History of Social function 2021-11-22 00:00:00 2021-11-22 00:00:00 [facility] Sex assigned at 2002 00:00:00 2000 00:00:00 [facility] Smoking Status Start Date Stop Date Source Never smoked tobacco [facility] Medications Ordered Medication Name Filled Medication Name Start Date Stop Date Current Medication? Ordering Clinician Indication Dosage Frequency Signature (SIG) Comments Components Source metroNIDAZO LE (FLAGYL) 500 mg tablet 12-01 00:00: 00 12-09 04:59 :00 No [id number] 500mg Take 1 tablet by mouth in the morning and 1 tablet in the evening. Do all this for 7 days. [facility] metroNIDAZO LE 500 mg tablet 07-05 00:00: 00 12-05 00:00 :00 No [id number] 500mg Take 1 tablet by mouth every 12 (twelve) hours. [facility] fluconazole 150 mg tablet 07-05 00:00: 00 07-06 04:59 :00 No [id number] 150mg Take 1 tablet by mouth once now for 1 dose. [facility] Dose Unknown 8-15 00:00: 00 No 500 Dose Unknown 8-15 00:00: 00 No 600 doxycycline hyclate 100 mg tablet 8-10 00:00: 00 07-04 00:00 :00 No [id number] 100mg Take 1 tablet by mouth in the morning and 1 tablet in the evening. [facility] Nexplanon 68 mg subdermal implant [...] Immunization Name Date Status Comments Source HPV9 2023-12-06 09:30:00 Completed [facility] SARS-COV-2 COVID 19 GLENNA SUCROSE VACCINE 12+, , 0.3 ML (30 MCG), IM PFIZER (PEREZ TOP) 2023-12-06 09:30:00 Completed [facility] HPV9 2023-05-31 00:00:00 Completed [facility] HPV9 2023-05-11 00:00:00 Completed [facility] HPV9 2022-07-05 00:00:00 Completed [facility] HPV9 2022-07-04 00:00:00 Completed [facility] HPV9 2022-05-25 00:00:00 Completed [facility] HPV9 2022-05-25 00:00:00 Completed [facility] HPV9 2022-05-25 00:00:00 Completed [facility] HPV9 2022-05-25 00:00:00 Completed [facility] HPV9 2022-05-25 00:00:00 Completed [facility] HPV9 2022-05-25 00:00:00 Completed [facility] HPV9 2022-05-25 00:00:00 Completed HPV9 2022-02-01 00:00:00 Completed [facility] HPV9 2022-01-26 00:00:00 Completed [facility] HPV9 2022-01-26 00:00:00 Completed [facility] HPV9 2022-01-26 00:00:00 Completed [facility] HPV9 2022-01-26 00:00:00 Completed [facility] HPV9 2022-01-26 00:00:00 Completed [facility] HPV9 2022-01-26 00:00:00 Completed [facility] HPV9 2022-01-26 00:00:00 Completed [facility] HPV9 2022-01-26 00:00:00 Completed [facility] HPV9 2022-01-26 00:00:00 Completed [facility] HPV9 2021-11-25 00:00:00 Completed [facility] HPV9 2021-11-24 00:00:00 Completed [facility] HPV9 2021-11-23 00:00:00 Completed [facility] HPV9 2021-11-22 00:00:00 Completed [facility] HPV9 2021-11-22 00:00:00 Completed [facility] HPV9 2021-11-22 00:00:00 Completed [facility] HPV9 2021-11-22 00:00:00 Completed [facility] HPV9 2021-11-22 00:00:00 Completed [facility] HPV9 2021-11-22 00:00:00 Completed [facility] HPV9 2021-11-22 00:00:00 Completed [facility] HPV9 2021-11-22 00:00:00 Completed [facility] HPV9 2021-11-22 00:00:00 Completed [facility] Vital Signs Vital Name Observation Time Observation Value Derrek tierney Systolic blood pressure 2023-12-06 14:31:00 119 mm[Hg] [facility] Diastolic blood pressure 2023-12-06 14:31:00 76 mm[Hg] [facility] Heart rate 2023-12-06 14:31:00 75 /min [facility] Body temperature 2023-12-06 14:31:00 36.83 [facility] Body height 2023-12-06 14:31:00 167.6 cm [facility] Body weight 2023-12-06 14:31:00 54.159 kg [facility] BMI 2023-12-06 14:31:00 19.27 kg/m2 [facility] Systolic blood pressure 2022-11-28 14:26:00 116 mm[Hg] [facility] Diastolic blood pressure 2022-11-28 14:26:00 79 mm[Hg] [facility] Heart rate 2022-11-28 14:26:00 71 /min [facility] Body temperature 2022-11-28 14:26:00 36.67 [facility] Body height 2022-11-28 14:26:00 167.6 cm [facility] Body weight 2022-11-28 14:26:00 53.162 kg [facility] BMI 2022-11-28 14:26:00 18.92 kg/m2 [facility] Systolic blood pressure 2022-07-04 14:52:00 117 mm[Hg] [facility] Diastolic blood pressure 2022-07-04 14:52:00 80 mm[Hg] [facility] Heart rate 2022-07-04 14:52:00 78 /min [facility] Body temperature 2022-07-04 14:52:00 36.72 [facility] Respiratory rate 2022-07-04 14:52:00 18 /min [facility] Body height 2022-07-04 14:52:00 167.6 cm [facility] Systolic blood pressure 2022-05-25 14:10:00 114 mm[Hg] [facility] Diastolic blood pressure 2022-05-25 14:10:00 72 mm[Hg] [facility] Heart rate 2022-05-25 14:10:00 70 /min [facility] Body temperature 2022-05-25 14:10:00 36.78 [facility] Body height 2022-05-25 14:10:00 167.6 cm [facility] Body weight 2022-05-25 14:10:00 55.702 kg [facility] BMI 2022-05-25 14:10:00 19.82 kg/m2 [facility] Systolic blood pressure 2022-02-02 16:28:00 119 mm[Hg] [facility] Diastolic blood pressure 2022-02-02 16:28:00 80 mm[Hg] [facility] Heart rate 2022-02-02 16:28:00 70 /min [facility] Body temperature 2022-02-02 16:28:00 36.72 [facility] Respiratory rate 2022-02-02 16:28:00 18 /min [facility] Body height 2022-02-02 16:28:00 167.6 cm [facility] Body weight 2022-02-02 16:28:00 59.784 kg [facility] BMI 2022-02-02 16:28:00 21.27 kg/m2 [facility] Systolic blood pressure 2022-01-26 18:42:00 112 mm[Hg] [facility] Diastolic blood pressure 2022-01-26 18:42:00 73 mm[Hg] [facility] Heart rate 2022-01-26 18:42:00 65 /min [facility] Body temperature 2022-01-26 18:42:00 36.83 [facility] Respiratory rate 2022-01-26 18:42:00 16 /min [facility] Body height 2022-01-26 18:42:00 167.6 cm [facility] Body weight 2022-01-26 18:42:00 59.512 kg [facility] BMI 2022-01-26 18:42:00 21.18 kg/m2 [facility] BP Systolic 2021-10-12 11:33:00 126 [...] W/O SPECIFIC GRAVITY 2022-07-04 00:00:00 Ena Rowe [facility] GARDASIL 9 (HPV 9V) VACCINE 2022-05-25 14:12:46 Stephy Wiggins [facility] GARDASIL 9 (HPV 9V) VACCINE 2022-01-26 18:59:55 Stephy Wiggins [facility] Plan of Care Planned Activity Planned Date Details Comments Source Goal Plan of Care Note [code = 68888-4] Goal Plan of Care Note [code = 04652-0] Goal Plan of Care Note [code = 14249-5] Goal Plan of Care Note [code = 45490-5] Goal Plan of Care Note [code = 82787-6] Goal Plan of Care Note [code = 00424-4] Goal Plan of Care Note [code = 42436-1] Goal Plan of Care Note [code = 67678-6] Goal Plan of Care Note [code = 24633-0] Goal Plan of Care Note [code = 37250-8] Goal Plan of Care Note [code = 42279-4] Goal Plan of Care Note [code = 07110-5] Goal Plan of Care Note [code = 87332-3] Goal Plan of Care Note [code = 69036-4] Goal Plan of Care Note [code = 39352-5] Goal Plan of Care Note [code = 04771-7] Goal Plan of Care Note [code = 72462-2] Goal Plan of Care Note [code = 00095-9] Goal Plan of Care Note [code = 22057-8] Goal Plan of Care Note [code = 16343-4] Goal Plan of Care Note [code = 86671-0] Goal Plan of Care Note [code = 91261-0] Goal Plan of Care Note [code = 37644-4] Goal Plan of Care Note [code = 92920-8] Goal Plan of Care Note [code = 31183-0] Goal Plan of Care Note [code = 99852-9] Goal Plan of Care Note [code = 38772-6] Goal Plan of Care Note [code = 55669-2] Goal Plan of Care Note [code = 02688-9] Goal Plan of Care Note [code = 52688-1] Goal Plan of Care Note [code = 88250-0] Goal Plan of Care Note [code = 84516-3] Goal Plan of Care Note [code = 32108-1] Goal Plan of Care Note [code = 94793-1] Goal Plan of Care Note [code = 22777-0] Goal Plan of Care Note [code = 08054-4] Goal Plan of Care Note [code = 65508-2] Goal Plan of Care Note [code = 36700-0] Encounters Start Date/Time End Date/Time Encounter Type Admission Type Attending [facility] Facility Care Department Encounter ID Source 2023-12-20 00:00:00 2024-01-20 18:19:48 Patient Secure Msg Doctor Unassigned, [place] Doctor Unassigned, [place] [facility] 1.2.840.114 350.1.13.10 4.2.7.2.686 [id number] 134 [id number] [facility] 2023-12-06 09:30:00 2023-12-06 10:01:21 Outpatient R STEPHY WIGGINS [facility] [id number] [facility] 2023-12-06 09:30:00 2023-12-06 10:01:21 Office Visit Stephy Wiggins [facility] 1.2.840.114 350.1.13.10 4.2.7.2.686 [id number] 134 [id number] [facility] 2023-05-31 00:00:00 2023-05-31 00:00:00 Danettevinnie Ena Rowe [facility] 1.2.840.114 350.1.13.10 4.2.7.2.686 [id number] 134 [id number] [facility] 2023-05-16 08:30:00 2023-05-16 08:30:00 Outpatient R STEPHY WIGGINS [facility] [id number] [facility] 2023-05-11 00:00:00 2023-05-11 00:00:00 Patient Secure Msg Stephy Wiggins [facility] 1.2.840.114 350.1.13.10 4.2.7.2.686 [id number] 134 [id number] [facility] 2022-12-19 15:01:26 2022-12-19 15:01:26 Outpatient [facility] [id number] [facility]k [place] 2022-12-01 00:00:00 2022-12-01 00:00:00 Case Management Stephy Wiggins [facility] 1.2.840.114 350.1.13.10 4.2.7.2.686 [id number] 134 [id number] [facility] 2022-11-28 09:30:00 2022-11-28 09:38:27 Outpatient R STEPHY WIGGINS [facility] [id number] [facility] 2022-11-28 09:30:00 2022-11-28 09:38:27 Office Visit Stephy Wiggins [facility] 1.2.840.114 350.1.13.10 4.2.7.2.686 [id number] 134 [id number] [facility] 2022-07-06 00:00:00 2022-07-06 00:00:00 Patient Secure Msg ClotildeHodan [facility] 1.2.840.114 350.1.13.10 4.2.7.2.686 [id number] 134 [id number] [facility] 2022-07-05 00:00:00 2022-07-05 00:00:00 Case Management Adama Ena [facility] 1.2.840.114 350.1.13.10 4.2.7.2.686 [id number] 134 [id number] [facility] 2022-07-05 00:00:00 2022-07-05 00:00:00 Patient Secure Msg Adama Ena [facility] 1.2.840.114 350.1.13.10 4.2.7.2.686 [id number] 134 [id number] [facility] 2022-07-04 10:00:00 2022-07-04 10:53:46 Outpatient R ENA ROWE [facility] [id number] [facility] 2022-07-04 10:00:00 2022-07-04 10:53:46 Office Visit Ena Rowe [facility] 1.2.840.114 350.1.13.10 4.2.7.2.686 [id number] 134 [id number] [facility] 2022-07-04 00:00:00 2022-07-04 00:00:00 Patient Secure Msg Adama [facility] BU[facility] 1.2.840.114 350.1.13.10 4.2.7.2.686 [id number] 134 [id number] [facility] 2022-05-25 08:00:00 2022-05-25 08:15:00 Nurse Visit Nurse, [facility] Adama Ena [facility] 1.2.840.114 350.1.13.10 4.2.7.2.686 [id number] 134 [id number] [facility] 2022-05-25 08:00:00 2022-05-25 08:00:00 Outpatient R ADAMA [facility] [id number] [facility] 2022-05-25 08:00:00 2022-05-25 08:00:00 Outpatient R [facility] [id number] [facility] 2022-02-02 13:00:00 2022-02-02 13:00:00 Office Visit Adama Ena [facility] 1.2.840.114 350.1.13.10 4.2.7.2.686 [id number] 134 [id number] [facility] 2022-02-02 13:00:00 2022-02-02 11:48:47 Outpatient R ENA ROWE [facility] [id number] [facility] 2022-02-01 00:00:00 2022-02-01 00:00:00 Patient Secure Msg Stephy Wiggins [facility] 1.2.840.114 350.1.13.10 4.2.7.2.686 [id number] 134 [id number] [facility] 2022-01-26 14:00:00 2022-01-26 14:00:00 Outpatient R ADAMA [facility] [id number] [facility] 2022-01-26 14:00:00 2022-01-26 14:00:00 Nurse Visit [facility], [facility] 1.2.840.114 350.1.13.10 4.2.7.2.686 [id number] 134 [id number] [facility] 2022-01-24 08:00:00 2022-01-24 08:00:00 Outpatient R [facility] [id number] [facility] 2021-11-29 00:00:00 2021-11-29 00:00:00 Outpatient Visit [id number] 2021-11-25 00:00:00 2021-11-25 00:00:00 Patient Secure Msg Stephy Wiggins [facility] BUILDING 1.2.840.114 350.1.13.10 4.2.7.2.686 [id number] 134 [id number] [facility] 2021-11-25 00:00:00 2021-11-25 00:00:00 Telephone Stephy Wiggins [facility]ING 1.2.840.114 350.1.13.10 4.2.7.2.686 [id number] 134 [id number] [facility] 2021-11-24 00:00:00 2021-11-24 00:00:00 Patient Secure Msg Stephy Wiggins [facility] BUILDING 1.2.840.114 350.1.13.10 4.2.7.2.686 [id number] 134 [id number] [facility] 2021-11-24 00:00:00 2021-11-24 00:00:00 Case Management Ena Rowe [facility] 1.2.840.114 350.1.13.10 4.2.7.2.686 [id number] 134 [id number] [facility] 2021-11-23 00:00:00 2021-11-23 00:00:00 Patient Secure Msg Stephy Wiggins [facility] BUILDING 1.2.840.114 350.1.13.10 4.2.7.2.686 [id number] 134 [id number] [facility] 2021-11-22 08:00:00 2021-11-22 09:06:55 Outpatient R STEPHY WIGGINS [facility] [id number] [facility] 2021-11-22 08:00:00 2021-11-22 09:06:55 Office Visit Stephy Wiggins [facility] 1.2.840.114 350.1.13.10 4.2.7.2.686 [id number] 134 [id number] [facility] 2021-10-12 00:00:00 2021-10-12 00:00:00 Outpatient Visit [id number] 2021-01-20 14:16:03 2021-01-20 14:52:14 Office Visit Adama Stephy So [facility] 1.2.840.114 350.1.13.10 4.2.7.2.686 [id number] 134 [id number] [facility] 2021-01-20 14:30:00 2021-01-20 14:30:00 Outpatient R STEPHY WIGGINS [facility] [id number] [facility] 2021-01-14 00:00:00 2021-01-14 00:00:00 Patient Secure Msg Stephy Wiggins [facility] BUILDING 1.2.840.114 350.1.13.10 4.2.7.2.686 [id number] 134 [id number] [facility] 2020-10-15 13:30:00 2020-10-15 13:30:00 Outpatient R STEPHY WIGGINS [facility] [id number] [facility] Results Test Description Test Time Test Comments Results Result Co mments Source [facility]CIFIC [id number] 15:16:00* Test Item Value Reference Range Interpretation [...] = [id number]) neg Negative - Negati ve [facility] Notes Date/Time Note Provider Source 2023-05-15 09:36:22 Returned pt call to assist in scheduling. Sooner appointment provided. Pt's insurance is no longer active. Pt will call back after she speaks with insurance company to schedule an appointment. INA Lubin [facility]
[2024-07-12 16:52] LABS: Specific Gravity 1.005 (1.005-1.030); Sqamous Epithelial <5 /HPF (None Seen); Urine Bacteria <20 /HPF (<20); Urine Bilirubin NEGATIVE (Negative); Urine Blood Negative (Negative); Urine Clarity Turbid (Clear); Urine Color Colorless (Yellow); Urine Culture Reflex Order NOT NEEDED; Urine Glucose NEGATIVE (Negative); Urine Ketones NEGATIVE (Negative); Urine Microscopic Reflex YN ORDER UMIC; Urine Nitrite NEGATIVE (Negative); Urine Protein NEGATIVE (Negative); Urine RBC <5 /HPF (None Seen); Urine Urobilinogen Normal (Normal); Urine WBC <5 /HPF (<5); Urine WBC Clump Rare /HPF (None Seen); Urine Yeast (Budding) Trace /HPF (None Seen); Urine pH 6.5 (5.0-7.0)
[2024-07-12 17:00] LABS: Absolute Lymphocytes (CBC) 1.9 K/uL (0.7-4.9); Absolute Monocytes 0.8 K/uL (0.1-1.3); Absolute Neutrophil 7.3 K/uL (1.8-8.0); Basophils % 0.3 % (0-1.3); Eosinophils % 0.4 % (0-4.4); Hematocrit 37.8 % (36.0-45.0); Hemoglobin 13.1 g/dL (12.0-15.0); Lymphocytes % 19.1 % (15.3-44.8); MCH 29.8 pg (27.0-35.0); MCHC 34.6 g/dL (32.0-36.0); MPV 9.2 fL (7.6-11.3); Monocytes % 7.6 % (3.3-12.3); Neutrophils % 72.6 % (41.7-73.7); Nucleated Red Blood Cells % 0.1 % (0-0); Platelets 215 thou/uL (152-406); RBC Red Blood Cell Count 4.39 M/uL (3.86-4.86); Red Cell Distribution Width 12.3 % (12.1-15.2)
[2024-07-12 17:05] LABS: Albumin 3.9 g/dL (3.4-5.0); Albumin/Globulin Ratio 0.9 (1.1-1.8); Anion Gap 9.9 mEq/L (5.0-15.0); Bilirubin Total 0.3 mg/dL (0.2-1.0); Globulin 4.5 g/dL (2.3-3.5); Potassium 3.9 mEq/L (3.5-5.1); Protein, Total 8.4 g/dL (6.4-8.2)
[2024-07-12] MEDS ORDERED: ONDANSETRON 4 MG/2 ML VIAL ONE (17:13)
[2024-07-12] MEDS ORDERED: NA CHLORIDE 0.9% 0 ML ONE (17:13)
--- NOTE | 2024-07-12 17:20 | EDPHYS ---
Physician Documentation [facility] Name: Digna Gonzalez Age: 24 yrs Sex: Female : 2000 Arrival Date: 07/12/2024 Time: 15:49 Bed 5 Private MD: ED Physician Roger Davila HPI: 07/12 16:40 This 24 yrs old Black Female presents to ER via Ambulatory with complaints of rn Nausea/Vomiting, Headache. 16:41 The patient complains of pain to the left side of the back of head and right side of rn the back of head. Onset: The symptoms/episode began/occurred 3 day(s) ago. Associated signs and symptoms: Pertinent positives: nausea, Pertinent negatives: fever, neck stiffness, rash, vision changes, vision loss, weakness, vertigo. Severity of symptoms: At its worst the pain was moderate, in the emergency department the pain has improved. The symptoms are alleviated by nothing. the symptoms are aggravated by nothing. The patient has experienced similar episodes in the past. Patient reports headache, back of head, associated with nausea and vomiting. Feels pressure in the back of her head. No family history of brain mass or cancer or aneurysm. No trauma. No fever or chills. Also reports increased urinary frequency and dysuria. Is not sure if she is . No focal neurological deficit. No vision changes. Patient has history of migraines but states that this feels slightly different.. 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 - Infectious Disease History:: Denies. - Social history:: Smoking status: Patient denies any tobacco usage or history of. - Family history:: not pertinent. - Hospitalizations: : No recent hospitalization is reported. ROS: 16:41 Constitutional: Negative for fever, chills, and weight loss, Eyes: Negative for injury, rn pain, redness, and discharge, Neck: Negative for injury, pain, and swelling, Cardiovascular: Negative for chest pain, palpitations, and edema, Respiratory: Negative for shortness of breath, cough, wheezing, and pleuritic chest pain, Abdomen/GI: Negative for abdominal pain, diarrhea, and constipation, Back: Negative for injury and pain, MS/Extremity: Negative for injury and deformity, Skin: Negative for injury, rash, and discoloration, Neuro: Positive for headache Exam: 16:41 Constitutional: This is a well developed, well nourished patient who is awake, alert, rn and in no acute distress. Head/Face: Normocephalic, atraumatic. Neck: Supple neck without meningismus Cardiovascular: Regular rate and rhythm. No pulse deficits. Respiratory: No increased work of breathing, no retractions or nasal flaring. Abdomen/GI: Soft, non-tender MS/ Extremity: Pulses equal, no cyanosis. Neurovascular intact. Full, normal range of motion. Equal circumference. Neuro: Awake and alert, GCS 15, oriented to person, place, time, and situation. Cranial nerves II-XII grossly intact. Motor strength 5/5 in all extremities. Sensory grossly intact. Cerebellar exam normal. Normal gait. Ambulatory to room from bathroom without assistance or difficulty. No ataxia Vital Signs: 16:11 BP 116 / 71; Pulse 87; Resp 17; Temp 98.6(O); Pulse Ox 100% on R/A; Weight 55.34 kg; ap3 Height 5 ft. 7 in. ; 16:11 Body Mass Index 19.11 (55.34 kg, 170.18 cm) ap3 [place] Coma Score: 17:18 Eye Response: spontaneous(4). Motor Response: obeys commands(6). Verbal Response: rn oriented(5). Total: 15. MDM: 15:56 Medical Screening Exam initiated rn 17:18 Differential diagnosis: migraine, tension headache, vasomotor headache, . Data rn reviewed: vital signs, nurses notes, lab test result(s), and as a result, I will discharge patient. Counseling: I had a detailed discussion with the patient and/or guardian regarding the historical points, exam findings, and any diagnostic results supporting the discharge/admit diagnosis, lab results, the need for outpatient follow up, to return to the emergency department if symptoms worsen or persist or if there are any questions or concerns that arise at home. Special discussion: I discussed with the patient/guardian in detail that at this point there is no indication for admission to the hospital. It is understood, however, that if the symptoms persist or worsen the patient needs to return immediately for re-evaluation. Based on the history and exam findings, there is no indication for further emergent testing or inpatient evaluation. I discussed with the patient/guardian the need to see the OB Gyne specialist for further evaluation of the symptoms. ED course: Positive test. Patient has no vaginal discharge or bleeding. Will discharge home with return precautions, recommend vitamins and OB follow-up.. 07/12 16:25 Order name: CBC with Diff; Complete Time: 17: rn 07/12 16:25 Order name: CMP; Complete Time: 17: rn 07/12 16:25 Order name: Lipase; Complete Time: 17: rn 07/12 16:25 Order name: Test, Urine; Complete Time: 17: rn 07/12 16:25 Order name: Urinalysis w/ reflexes; Complete Time: 17: rn 07/12 16:25 Order name: IV Saline Lock; Complete Time: 16:44 rn 07/12 16:25 Order name: Labs collected and sent; Complete Time: 16:44 rn Administered Medications: 17:31 Not Given (Patient Refused): ondansetron 4 mg IVP once; over 2 minutes jb4 17:31 Not Given (Patient Refused): ns 0.9% 1000 ml IV at 1 bolus Per protocol; to be given as jb4 a bolus over 60 minutes Disposition Summary: 07/12/24 17:19 Discharge Ordered Notes: Location: Home rn Problem: new rn Symptoms: have improved rn Condition: Stable rn Diagnosis - Encounter for test, result positive rn - Other specified related conditions, first trimester rn - Headache rn Followup: rn - With: Private Physician - When: As needed - Reason: Recheck today's complaints, Re-evaluation by your physician Discharge Instructions: - Discharge Summary Sheet rn - General Headache Without Cause rn - First Trimester of rn Forms: - Medication Reconciliation Form rn - Antibiotic record label internship - Prescription Opioid Use rn - Patient Portal Instructions rn - Leadership Thank You Letter rn - Work release form jl7 Signatures: Dispatcher [employer] EDRoger Romo MD MD rn Prokisch, Amanda, RN RN ap3 Juan Velasco RN jb4 Corrections: (The following items were deleted from the chart) 16:25 16:25 CBC+H.LAB.BRZ ordered. EDMS EDMS 16: 16:25 COMPREHENSIVE METABOLIC PANEL+C.LAB.BRZ ordered. EDMS EDMS 16: 16:25 LIPASE+C.LAB.BRZ ordered. EDMS EDMS 16: 16:25 Test, Urine+UC.LAB.BRZ ordered. EDMS EDMS 16: 16:25 Urinalysis+U.LAB.BRZ ordered. EDMS EDMS
--- NOTE | 2024-07-12 17:20 | ER ---
Nurse's Notes [facility] Name: Digna Gonzalez Age: 24 yrs Sex: Female : 2000 Arrival Date: 07/12/2024 Time: 15:49 Bed 5 Private MD: Diagnosis: Encounter for test, result positive;Other specified related conditions, first trimester;Headache Presentation: 07/12 16:11 Chief complaint: Patient states: she has been feeling light headed, nauseated and ap3 having frequency with urination for approx three days. Coronavirus screen: At this time, the client does not indicate any symptoms associated with coronavirus-19. Ebola Screen: No symptoms or risks identified at this time. Initial Sepsis Screen: Does the patient meet any 2 criteria? No. Patient's initial sepsis screen is negative. Does the patient have a suspected source of infection? No. Patient's initial sepsis screen is negative. Risk Assessment: Do you want to hurt yourself or someone else? Patient reports no desire to harm self or others. Onset of symptoms was July 09, 2024. 16:11 Method Of Arrival: Ambulatory ap3 16:11 Acuity: BALTAZAR 3 ap3 Triage Assessment: 16:13 General: Appears in no apparent distress. Behavior is calm, cooperative, appropriate ap3 for age. Pain: Complains of pain in head Pain began 2-3 days ago. Neuro: Level of Consciousness is awake, alert, obeys commands, Oriented to person, place, time, situation, Gait is steady, Reports dizziness. Cardiovascular: Patient's skin is warm and dry. Respiratory: Airway is patent Respiratory effort is even, unlabored, Respiratory pattern is regular, symmetrical. GI: Reports nausea. : Reports urinary frequency. 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 - Infectious Disease History:: Denies. - Social history:: Smoking status: Patient denies any tobacco usage or history of. - Family history:: not pertinent. - Hospitalizations: : No recent hospitalization is reported. Screenin:13 [facility] ED Fall Risk Assessment (Adult) History of falling in the last 3 months, ap3 including since admission No falls in past 3 months (0 pts) Confusion or Disorientation No (0 pts) Intoxicated or Sedated No (0 pts) Impaired Gait No (0 pts) Mobility Assist Device Used No (0 pt) Altered Elimination No (0 pt) Score/Fall Risk Level 0 - 2 = Low Risk Oriented to surroundings, Maintained a safe environment, Educated pt \T\ family on fall prevention, incl call for assistance when getting out of bed, Assessed \T\ reinforced patient's understanding of fall precautions, Hourly rounding (assess needs \T\ fall precautionary measures) done, Used ambulatory aids as needed (educated on \T\ assisted with). Abuse screen: Denies threats or abuse. Nutritional screening: No deficits noted. Tuberculosis screening: No symptoms or risk factors identified. Assessment: 17:31 General: Appears in no apparent distress. comfortable, Behavior is calm, cooperative, jb4 appropriate for age. Pain: Complains of pain in Headache Pain does not radiate. Pain currently is 6 out of 10 on a pain scale. Neuro: Level of Consciousness is awake, alert, obeys commands, Oriented to person, place, time, situation. Cardiovascular: Patient's skin is warm and dry. Respiratory: Airway is patent Respiratory effort is even, unlabored, Respiratory pattern is regular, symmetrical. GI: Abdomen is flat, non-distended, Reports nausea. Derm: Skin is intact, Skin is pink, warm \T\ dry. Musculoskeletal: Circulation, motion, and sensation intact. Range of motion: intact in all extremities. Vital Signs: 16:11 BP 116 / 71; Pulse 87; Resp 17; Temp 98.6(O); Pulse Ox 100% on R/A; Weight 55.34 kg; ap3 Height 5 ft. 7 in. ; 16:11 Body Mass Index 19.11 (55.34 kg, 170.18 cm) ap3 Paty Coma Score: 17:18 Eye Response: spontaneous(4). Motor Response: obeys commands(6). Verbal Response: rn oriented(5). Total: 15. ED Course: 15:56 Patient arrived in ED. al6 15:56 Roger Davila MD is Attending Physician. rn 16:12 Triage completed. ap3 16:13 Arm band placed on right wrist. ap3 16:33 Juan Velasco, RN is Primary Nurse. jb4 16:40 Inserted saline lock: 20 gauge in right antecubital area, using aseptic technique. jb4 Blood collected. 16:44 CBC with Diff Sent. jb4 16:44 CMP Sent. jb4 16:44 Lipase Sent. jb4 16:44 Test, Urine Sent. jb4 16:44 Urinalysis w/ reflexes Sent. jb4 17:31 Patient has correct armband on for positive identification. Placed in gown. Bed in low jb4 position. Call light in reach. Side rails up X 1. Provided Education on: discharge instructions. 17:31 No provider procedures requiring assistance completed. IV discontinued, intact, jb4 bleeding controlled, No redness/swelling at site. Pressure dressing applied. Administered Medications: 17:31 Not Given (Patient Refused): ondansetron 4 mg IVP once; over 2 minutes jb4 17:31 Not Given (Patient Refused): ns 0.9% 1000 ml IV at 1 bolus Per protocol; to be given as jb4 a bolus over 60 minutes Medication: 17:31 VIS not applicable for this client. jb4 Outcome: 17:19 Discharge ordered by . rn 17:33 Discharged to home ambulatory, jb4 17:33 Condition: stable 17:33 Discharge instructions given to patient, Instructed on discharge instructions, follow up and referral plans. Demonstrated understanding of instructions, follow-up care, 17:33 Patient left the ED. jb4 Signatures: Roger Davila MD MD rn Bryson, James RN RN jb4 Cassie Rajan RN RN ap3 Rosario Saravia
[2024-07-12 17:38] VITALS: BP 116/71; TEMP 98.6; O2SAT 100
== END 2024-07-12 17:33 | disposition home or self-care (01) ==
LOC: ER 15:49
DX: Z32.01 Encounter for pregnancy test, result positive (principal)
CPT/HCPCS: 36415; 80053; 81001; 81025; 83690; 85025; 99283; J2405; J7030

== ENCOUNTER 2024-08-02 18:48 | Emergency (ER) | payer SELFPAY ==
--- OUTSIDE RECORDS SUMMARY | 2024-08-02 18:52 | XMS REPORT | Continuity of Care Document ---
Author Name Unknown Address [address] 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 Name Role Phone Kisha Lincoln Primary Care Physician [phone] STEPHY WIGGINS Attending Clinician Unavailable STEPHY WIGGINS Attending Clinician Unavailable KISHA JAQUEZ Attending Clinician Unavailable KISHA JAQUEZ Attending Clinician Unavailable Doctor Unassigned, [place] Attending Clinician U Stephy Storm MD Attending Clinician [phone] Ena Galan PA-C Attending Clinician [phone] ENA GALAN Attending Clinician Unavailable Hodan Mabry RN Attending Clinician [facility], [facility] Attending Clinician Un available Payers Payer Name Policy Type Policy Number Effective Date Expirati on Date Source [facility] [id number] 2020 00:00:00 [facility] [id number] 2020 00:00:00 Problems Condition Name Condition Details Condition Category Status Onset Date Resolution Date Last Treatment Date Treating Clinician Comments Source Well woman exam (no gynecologi vanessa exam) Well woman exam (no gynecologi vanessa exam) Disease Active 10-15 00:00: 00 [facility] ity [facility] Nexplanon in place Nexplanon in place Disease Resolve d 10-15 00:00: 00 2023-12-06 00:00:00 2023-12-06 10:15:10 [facility] Allergies, Adverse Reactions, Alerts Allergy Name Allergy Type Status Severity Reaction(s) Onset Date Inactive Date Treating Clinician Comments Source NO KNOWN ALLERGIE S Drug Class Active [facility] Social History Social Habit Start Date Stop Date Quantity Comments Source Gender identity [facility] of tobacco use Passive smoker [facility] Alcoholic beverage intake 2023-12-06 00:00:00 2023-12-06 00:00:00 Lifetime non-drinker (finding) [facility] Alcohol Comment 2022-11-28 00:00:00 2022-11-28 00:00:00 quit [facility] Alcohol intake 2022-11-28 00:00:00 2022-11-28 00:00:00 Lifetime non-drinker (finding) [facility] Exposure to SARS-CoV-2 (event) 2022-06-23 00:00:00 2022-07-03 11:46:00 Not sure [facility] Tobacco use and exposure 2021-11-22 00:00:00 2021-11-22 00:00:00 Smokeless tobacco non-user [facility] History of Social function 2021-11-22 00:00:00 2021-11-22 00:00:00 [facility] Sex assigned at 2002 00:00:00 2000 00:00:00 [facility] Smoking Status Start Date Stop Date Source Never smoked tobacco [facility] Medications Ordered Medication Name Filled Medication Name Start Date Stop Date Current Medication? Ordering Clinician Indication Dosage Frequency Signature (SIG) Comments Components Source metroNIDAZO LE (FLAGYL) 500 mg tablet 12-01 00:00: 00 12-09 04:59 :00 No [id number] 500mg Take 1 tablet by mouth in the morning and 1 tablet in the evening. Do all this for 7 days. [facility] metroNIDAZO LE 500 mg tablet 07-05 00:00: 00 12-05 00:00 :00 No [id number] 500mg Take 1 tablet by mouth every 12 (twelve) hours. [facility] fluconazole 150 mg tablet 07-05 00:00: 00 07-06 04:59 :00 No [id number] 150mg Take 1 tablet by mouth once now for 1 dose. [facility] Dose Unknown 15 00:00: 00 No 500 Dose Unknown 11-29 00:00: 00 No 600 doxycycline hyclate 100 mg tablet 11-24 00:00: 00 07-04 00:00 :00 No [id number] 100mg Take 1 tablet by mouth in the morning and 1 tablet in the evening. [facility] Nexplanon 68 mg subdermal implant 10-12 [...] 1 CAPSULE BY MOUTH THREE TIMES DAILY 10-05 00:00: 00 No amoxicillin 875 mg tablet 06-26 00:00: 00 No 1mg ibuprofen 600 mg tablet 2018-04 00:00: 00 No 1mg Nexplanon 68 mg subdermal implant 10-01 00:00: 00 No 1mg Immunizations Ordered Immunization Name Filled Immunization Name Date Status Comments Source HPV9 2023-12-06 09:30:00 Completed [facility] SARS-COV-2 COVID 19 GLENNA SUCROSE VACCINE 12+, , 0.3 ML (30 MCG), IM PFIZER (PEREZ TOP) 2023-12-06 09:30:00 Completed [facility] HPV9 2023-05-31 00:00:00 Completed [facility] HPV9 2023-05-11 00:00:00 Completed [facility] HPV9 2022-07-05 00:00:00 Completed [facility] HPV9 2022-07-04 00:00:00 Completed [facility] HPV9 2022-05-25 00:00:00 Completed [facility] HPV9 2022-05-25 00:00:00 Completed [facility] HPV9 2022-05-25 00:00:00 Completed [facility] HPV9 2022-05-25 00:00:00 Completed [facility] HPV9 2022-05-25 00:00:00 Completed [facility] HPV9 2022-05-25 00:00:00 Completed [facility] HPV9 2022-05-25 00:00:00 Completed HPV9 2022-02-01 00:00:00 Completed [facility] HPV9 2022-01-26 00:00:00 Completed [facility] HPV9 2022-01-26 00:00:00 Completed [facility] HPV9 2022-01-26 00:00:00 Completed [facility] HPV9 2022-01-26 00:00:00 Completed [facility] HPV9 2022-01-26 00:00:00 Completed [facility] HPV9 2022-01-26 00:00:00 Completed [facility] HPV9 2022-01-26 00:00:00 Completed [facility] HPV9 2022-01-26 00:00:00 Completed [facility] HPV9 2022-01-26 00:00:00 Completed [facility] HPV9 2021-11-25 00:00:00 Completed [facility] HPV9 2021-11-24 00:00:00 Completed [facility] HPV9 2021-11-23 00:00:00 Completed [facility] HPV9 2021-11-22 00:00:00 Completed [facility] HPV9 2021-11-22 00:00:00 Completed [facility] HPV9 2021-11-22 00:00:00 Completed [facility] HPV9 2021-11-22 00:00:00 Completed [facility] HPV9 2021-11-22 00:00:00 Completed [facility] HPV9 2021-11-22 00:00:00 Completed [facility] HPV9 2021-11-22 00:00:00 Completed [place] [id number] 2021-11-22 00:00:00 Completed [place] [address] 2021-11-22 00:00:00 Completed [facility] Vital Signs Vital Name Observation Time Observation Value Derrek tierney Systolic blood pressure 2023-12-06 14:31:00 119 mm[Hg] [facility] Diastolic blood pressure 2023-12-06 14:31:00 76 mm[Hg] [facility] Heart rate 2023-12-06 14:31:00 75 /min [facility] Body temperature 2023-12-06 14:31:00 36.83 Betty [facility] Body height 2023-12-06 14:31:00 167.6 cm [facility] Body weight 2023-12-06 14:31:00 54.159 kg [facility] BMI 2023-12-06 14:31:00 19.27 kg/m2 [facility] Systolic blood pressure 2022-11-28 14:26:00 116 mm[Hg] [facility] Diastolic blood pressure 2022-11-28 14:26:00 79 mm[Hg] [facility] Heart rate 2022-11-28 14:26:00 71 /min [facility] Body temperature 2022-11-28 14:26:00 36.67 Betty [facility] Body height 2022-11-28 14:26:00 167.6 cm [facility] Body weight 2022-11-28 14:26:00 53.162 kg [facility] BMI 2022-11-28 14:26:00 18.92 kg/m2 [facility] Systolic blood pressure 2022-07-04 14:52:00 117 mm[Hg] [facility] Diastolic blood pressure 2022-07-04 14:52:00 80 mm[Hg] [facility] Heart rate 2022-07-04 14:52:00 78 /min [facility] Body temperature 2022-07-04 14:52:00 36.72 Betty [facility] Respiratory rate 2022-07-04 14:52:00 18 /min [facility] Body height 2022-07-04 14:52:[address] [facility] [place] [place] Systolic blood pressure 2022-05-25 14:10:00 114 mm[Hg] [facility] Diastolic blood pressure 2022-05-25 14:10:00 72 mm[Hg] [facility] Heart rate 2022-05-25 14:10:00 70 /min [facility] Body temperature 2022-05-25 14:10:00 36.78 Betty [facility] Body height 2022-05-25 14:10:[address] [facility] [place] [place] Body weight 2022-05-25 14:10:00 55.702 kg [facility] BMI 2022-05-25 14:10:00 19.82 kg/m2 [facility] [place] [place] Systolic blood pressure 2022-02-02 16:28:00 119 mm[Hg] [facility] Diastolic blood pressure 2022-02-02 16:28:00 80 mm[Hg] [facility] Heart rate 2022-02-02 16:28:00 70 /min [facility] Body temperature 2022-02-02 16:28:00 36.72 Betty [facility] Respiratory rate 2022-02-02 16:28:00 18 /min [facility] Body height 2022-02-02 16:28:[address] [facility] [place] [place] Body weight 2022-02-02 16:28:[address] [facility] [place] [place] BMI 2022-02-02 16:28:00 21.27 kg/m2 [facility] [place] [place] Systolic blood pressure 2022-01-26 18:42:00 112 mm[Hg] [facility] Diastolic blood pressure 2022-01-26 18:42:00 73 mm[Hg] [facility] Heart rate 2022-01-26 18:42:00 65 /min [facility] Body temperature 2022-01-26 18:42:00 36.83 Betty [facility] Respiratory rate 2022-01-26 18:42:00 16 /min [facility] Body height 2022-01-26 18:42:00 167.6 cm [facility] Body weight 2022-01-26 18:42:00 59.512 kg [facility] BMI 2022-01-26 18:42:00 21.18 kg/m2 [facility] BP Systolic 2021-10-12 11:33:00 126 [...] W/O SPECIFIC GRAVITY 2022-07-04 00:00:00 Ena Galan [facility] GARDASIL 9 (HPV 9V) VACCINE 2022-05-25 14:12:46 Stephy Wiggins [facility] GARDASIL 9 (HPV 9V) VACCINE 2022-01-26 18:59:55 Stephy Wiggins [facility] Plan of Care Planned Activity Planned Date Details Comments Source Goal Plan of Care Note [code = 99175-2] Goal Plan of Care Note [code = 29120-8] Goal Plan of Care Note [code = 13953-5] Goal Plan of Care Note [code = 24042-5] Goal Plan of Care Note [code = 38904-9] Goal Plan of Care Note [code = 65111-9] Goal Plan of Care Note [code = 35568-7] Goal Plan of Care Note [code = 42108-7] Goal Plan of Care Note [code = 70820-3] Goal Plan of Care Note [code = 19367-9] Goal Plan of Care Note [code = 82070-9] Goal Plan of Care Note [code = 00686-0] Goal Plan of Care Note [code = 85663-6] Goal Plan of Care Note [code = 08266-3] Goal Plan of Care Note [code = 16568-1] Goal Plan of Care Note [code = 59330-7] Goal Plan of Care Note [code = 82465-9] Goal Plan of Care Note [code = 97567-1] Goal Plan of Care Note [code = 77683-7] Goal Plan of Care Note [code = 74830-3] Goal Plan of Care Note [code = 28560-6] Goal Plan of Care Note [code = 94104-2] Goal Plan of Care Note [code = 76413-4] Goal Plan of Care Note [code = 86235-8] Goal Plan of Care Note [code = 08924-4] Goal Plan of Care Note [code = 84410-2] Goal Plan of Care Note [code = 08782-4] Goal Plan of Care Note [code = 94111-2] Goal Plan of Care Note [code = 41589-2] Goal Plan of Care Note [code = 87612-0] Goal Plan of Care Note [code = 68737-8] Goal Plan of Care Note [code = 03435-6] Goal Plan of Care Note [code = 61435-2] Goal Plan of Care Note [code = 61321-2] Goal Plan of Care Note [code = 77934-9] Goal Plan of Care Note [code = 28399-4] Goal Plan of Care Note [code = 77215-4] Goal Plan of Care Note [code = 20006-3] Encounters Start Date/Time End Date/Time Encounter Type Admission Type Attending Clinicians Care Facility Care Department Encounter ID Source 2024-08-06 14:30:00 2024-08-06 14:30:00 Outpatient KISHA CHICAS VIVIAN [facility] [id number] [facility] 2023-12-20 00:00:00 2024-01-20 18:19:48 Patient Secure Msg Doctor Unassigned, [place] Doctor Unassigned, [place] [facility] 1.2.840.114 350.1.13.10 4.2.7.2.686 [id number] 134 [id number] [facility] 2023-12-06 09:30:00 2023-12-06 10:01:21 Outpatient R STEPHY WIGGINS VIEN [facility] [id number] [facility] 2023-12-06 09:30:00 2023-12-06 10:01:21 Office Visit Stephy Wiggins [facility] 1..840.114 350.1.13.10 4.2.7.2.686 [id number] 134 [id number] [facility] 2023-05-31 00:00:00 2023-05-31 00:00:00 RefEna Holland [facility] 1..840.114 350.1.13.10 4.2.7.2.686 [id number] 134 [id number] [facility] 2023-05-16 08:30:00 2023-05-16 08:30:00 Outpatient R STEPHY WIGGINS [facility] [id number] [facility] 2023-05-11 00:00:00 2023-05-11 00:00:00 Patient Secure Msg Stephy Wiggins [facility] 1.2.840.114 350.1.13.10 4.2.7.2.686 [id number] 134 [id number] [facility] 2022-12-19 15:01:26 2022-12-19 15:01:[address] [facility] [id number] [place] 2022-12-01 00:00:00 2022-12-01 00:00:00 Case Management Stephy Wiggins [facility] 1.2.840.114 350.1.13.10 4.2.7.2.686 [id number] 134 [id number] [facility] 2022-11-28 09:30:00 2022-11-28 09:38:27 Outpatient R STEPHY WIGGINS VIEN [facility] [id number] [facility] 2022-11-28 09:30:00 2022-11-28 09:38:27 Office Visit Stephy Wiggins [facility] 1.2.840.114 350.1.13.10 4.2.7.2.686 [id number] 134 [id number] [facility] 2022-07-06 00:00:00 2022-07-06 00:00:00 Patient Secure g ClotildeHodan [facility] 1.840.114 350.1.13.10 4.2.7.2.686 [id number] 134 [id number] [facility] 2022-07-05 00:00:00 2022-07-05 00:00:00 Case Management Adama Ena [facility] 1..840.114 350.1.13.10 4.2.7.2.686 [id number] 134 [id number] [facility] 2022-07-05 00:00:00 2022-07-05 00:00:00 Patient Secure Msg Adama [facility] 1..840.114 350.1.13.10 4.2.7.2.686 [id number] 134 [id number] [facility] 2022-07-04 10:00:00 2022-07-04 10:53:46 [id number] 2022-07-04 10:00:00 2022-07-04 10:53:46 Office Visit Adama [facility] 1.2.840.114 350.1.13.10 4.2.7.2.686 [id number] 134 [id number] [facility] 2022-07-04 00:00:00 2022-07-04 00:00:00 Patient Secure Msg Adama [facility] 1.2.840.114 350.1.13.10 4.2.7.2.686 [id number] 134 [id number] [facility] 2022-05-25 08:00:00 2022-05-25 08:15:00 Nurse Visit Nurse, [facility] Adama [facility] 1.2.840.114 350.1.13.10 4.2.7.2.686 [id number] 134 [id number] [facility] 2022-05-25 08:00:00 2022-05-25 08:00:00 Outpatient R [facility] [id number] [facility] 2022-05-25 08:00:00 2022-05-25 08:00:00 Outpatient R [facility] [id number] [facility] 2022-02-02 13:00:00 2022-02-02 13:00:00 Office Visit Adama Ena [facility] 1.2.840.114 350.1.13.10 4.2.7.2.686 [id number] 134 [id number] [facility] 2022-02-02 13:00:00 2022-02-02 11:48:47 Outpatient R [facility] [id number] [facility] 2022-02-01 00:00:00 2022-02-01 00:00:00 Patient Secure g Stephy Wiggins [facility] 1.2.840.114 350.1.13.10 4.2.7.2.686 [id number] 134 [id number] [facility] 2022-01-26 14:00:00 2022-01-26 14:00:00 Outpatient R ENA GALAN [facility] [id number] [facility] 2022-01-26 14:00:00 2022-01-26 14:00:00 Nurse Visit Nurse, [facility] 1.2.840.114 350.1.13.10 4.2.7.2.686 [id number] 134 [id number] [facility] 2022-01-24 08:00:00 2022-01-24 08:00:00 Outpatient R [facility] [id number] [facility] 2021-11-29 00:00:00 2021-11-29 00:00:00 Outpatient Visit [id number] 2021-11-25 00:00:00 2021-11-25 00:00:00 Patient Secure Msg Stephy Wiggins [facility] 1.2.840.114 350.1.13.10 4.2.7.2.686 [id number] 134 [id number] [facility] 2021-11-25 00:00:00 2021-11-25 00:00:00 Telephone Stephy Wiggins [facility] BUILDING 1.2.840.114 350.1.13.10 4.2.7.2.686 [id number] [facility] 2021-11-24 00:00:00 2021-11-24 00:00:00 Patient Secure Msg Stephy Wiggins [facility] BUILDING 1.2.840.114 350.1.13.10 4.2.7.2.686 [id number] 134 [id number] [facility] 2021-11-24 00:00:00 2021-11-24 00:00:00 Case Management Ena Galan [facility] 1.2.840.114 350.1.13.10 4.2.7.2.686 [id number] 134 [id number] [facility] 2021-11-23 00:00:00 2021-11-23 00:00:00 Patient Secure Stephy Clayton [facility] 1.2.840.114 350.1.13.10 4.2.7.2.686 [id number] 134 [id number] [facility] 2021-11-22 08:00:00 2021-11-22 09:06:55 Outpatient R STEPHY WIGGINS [facility] [id number] [facility] 2021-11-22 08:00:00 2021-11-22 09:06:55 Office Visit Stephy Wiggins [facility] 1.2.840.114 350.1.13.10 4.2.7.2.686 [id number] 134 [id number] [facility] 2021-10-12 00:00:00 2021-10-12 00:00:00 Outpatient Visit [id number] 2021-01-20 14:16:03 2021-01-20 14:52:14 Office Visit Ena Galan [facility] 1.2.840.114 350.1.13.10 4.2.7.2.686 [id number] 134 [id number] [facility] 2021-01-20 14:30:00 2021-01-20 14:30:00 Outpatient R STEPHY WIGGINS [facility] [id number] [facility] 2021-01-14 00:00:00 2021-01-14 00:00:00 Patient Secure [facility]phy Lopes [facility] 1.2.840.114 350.1.13.10 4.2.7.2.686 [id number] 134 [id number] [facility] 2020-10-15 13:30:00 2020-10-15 13:30:00 Outpatient R STEPHY WIGGINS [facility] [id number] [facility] Results Test Description Test Time Test Comments Results Result Co mments [facility]O SPECIFIC [id number] 15:16:00* Test Item Value Reference Range Interpretation [...] = [id number]) neg Negative - Negati ve [facility] Notes Date/Time Note Provider Source 2023-05-15 09:36:22 Returned pt call to assist in scheduling. Sooner appointment provided. Pt's insurance is no longer active. Pt will call back after she speaks with insurance company to schedule an appointment. INA Lubin [facility] linked[employer]
[2024-08-02 19:37] LABS: Absolute Eosinophils 0.1 K/uL (0-0.5); Absolute Lymphocytes (CBC) 2.3 K/uL (0.7-4.9); Absolute Monocytes 0.8 K/uL (0.1-1.3); Absolute Neutrophil 7.4 K/uL (1.8-8.0); Basophils % 0.2 % (0-1.3); Eosinophils % 1.2 % (0-4.4); Hematocrit 33.7 % (36.0-45.0); Hemoglobin 11.9 g/dL (12.0-15.0); Lymphocytes % 21.3 % (15.3-44.8); MCH 30.5 pg (27.0-35.0); MCHC 35.3 g/dL (32.0-36.0); MCV 86.5 fL (80-100); MPV 8.8 fL (7.6-11.3); Monocytes % 7.8 % (3.3-12.3); Neutrophils % 69.5 % (41.7-73.7); Nucleated Red Blood Cells % 0.1 % (0-0); Platelets 198 thou/uL (152-406); Red Cell Distribution Width 12.9 % (12.1-15.2)
[2024-08-02] MEDS ORDERED: ACETAMINOPHEN 325 MG TABLET ONE (19:46)
[2024-08-02] MEDS ORDERED: NA CHLORIDE 0.9% 500 ML ONE (19:46)
[2024-08-02 20:01] LABS: Specific Gravity 1.027 (1.005-1.030); Specific Gravity 1.028 (1.005-1.030); Sqamous Epithelial <5 /HPF (None Seen); Urine Bacteria None Seen /HPF (<20); Urine Bilirubin NEGATIVE (Negative); Urine Blood Negative (Negative); Urine Clarity Turbid (Clear); Urine Color Light-Yellow (Yellow); Urine Crystals Unidentified Few /HPF (None Seen); Urine Culture Reflex Order REFLEXED; Urine Glucose NEGATIVE (Negative); Urine Ketones 1+ (Negative); Urine Microscopic Reflex YN ORDER UMIC; Urine Mucus 1+ /HPF (None Seen); Urine Nitrite NEGATIVE (Negative); Urine Protein NEGATIVE (Negative); Urine RBC <5 /HPF (None Seen); Urine Urobilinogen Normal (Normal); Urine WBC <5 /HPF (<5); Urine pH 6.5 (5.0-7.0)
--- NOTE | 2024-08-02 20:09 | RAD REPORT ---
EXAMINATION: US FIRST TRIMESTER TRANSVAGINAL WITH DOPPLER CLINICAL INDICATION: with pelvic pain TECHNIQUE: Real-time obstetrical ultrasonography of the maternal pelvis and first trimester was performed transvaginally. Color and spectral Doppler evaluation of the ovaries was performed. COMPARISON: No prior exam. FINDINGS: The uterus measures 10 x 6 x 7 cm A gestational sac is present within the endometrium measuring 6 x 3 x 4 cm. Within this is a po le with a crown rump length 2.2 cm. Cardiac activity 155 bpm Right ovary normal in size and echotexture. 1.6 cm cyst. Left ovary normal in size and echotexture Right and left adnexa unremarkable No significant free fluid IMPRESSION: Single live intrauterine with an estimated gestational age 9 weeks 4 days KYLIE 03/03/2025
[2024-08-02 20:21] LABS: Anion Gap 7.7 mEq/L (5.0-15.0); BUN Blood Urea Nitrogen 14 mg/dL (7-18); Bicarbonate 26 mEq/L (21-32); Glomerular Filtration Rate 136 ml/min (=/>90); Glucose Level 80 mg/dL (74-106); Potassium 3.7 mEq/L (3.5-5.1); Sodium Level 134 mEq/L (136-145)
[2024-08-02 20:22] LABS: HCG, Quantitative > 200000 mIU/mL (1-3)
--- NOTE | 2024-08-02 20:58 | ER ---
Nurse's Notes [facility] Name: Digna Gonzalez Age: 24 yrs Sex: Female : 2000 Arrival Date: 08/02/2024 Time: 18:48 Bed 19 Private MD: Diagnosis: related conditions, unspecified, first trimester Presentation: 08/02 19:06 Chief complaint: Patient states: Cramping x1 week. Pt reports 9 weeks . Denies dd2 spotting or bleeding. Coronavirus screen: At this time, the client does not indicate any symptoms associated with coronavirus-19. Ebola Screen: No symptoms or risks identified at this time. Initial Sepsis Screen: Does the patient meet any 2 criteria? No. Patient's initial sepsis screen is negative. Does the patient have a suspected source of infection? No. Patient's initial sepsis screen is negative. Risk Assessment: Do you want to hurt yourself or someone else? Patient reports no desire to harm self or others. Onset of symptoms was July 26, 2024. 19:06 Method Of Arrival: Ambulatory dd2 19:06 Acuity: BALTAZAR 3 dd2 Triage Assessment: 19:08 General: Appears in no apparent distress. Behavior is calm, cooperative, appropriate dd2 for age. Pain: Complains of pain in right lower quadrant and left lower quadrant Pain does not radiate. Pain currently is 2 out of 10 on a pain scale. Quality of pain is described as crampy. EENT: No deficits noted. No signs and/or symptoms were reported regarding the EENT system. Neuro: No deficits noted. Escobedo Agitation-Sedation Scale (RASS): 0 - Alert and Calm Level of Consciousness is awake, alert, obeys commands, Oriented to person, place, time, situation, Appropriate for age. Cardiovascular: No deficits noted. Patient's skin is warm and dry. Respiratory: No deficits noted. Airway is patent Respiratory effort is even, unlabored, Respiratory pattern is regular, symmetrical. GI: Abdomen is non-distended, Abd is soft and non tender X 4 quads. : No deficits noted. No signs and/or symptoms were reported regarding the genitourinary system. Derm: No deficits noted. No signs and/or symptoms reported regarding the dermatologic system. Skin is healthy with good turgor, Skin is dry, Skin is normal, Skin temperature is warm. Musculoskeletal: No deficits noted. No signs and/or symptoms reported regarding the musculoskeletal system. Circulation, motion, and sensation intact. Range of motion: intact in all extremities. 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 - Infectious Disease History:: Denies. - Social history:: Smoking status: Patient denies any tobacco usage or history of. Screenin:43 [facility] ED Fall Risk Assessment (Adult) History of falling in the last 3 months, al5 including since admission No falls in past 3 months (0 pts) Confusion or Disorientation No (0 pts) Intoxicated or Sedated No (0 pts) Impaired Gait No (0 pts) Mobility Assist Device Used No (0 pt) Altered Elimination No (0 pt) Score/Fall Risk Level 0 - 2 = Low Risk Oriented to surroundings, Maintained a safe environment, Hourly rounding (assess needs \T\ fall precautionary measures) done. Abuse screen: Denies threats or abuse. Denies injuries from another. Nutritional screening: No deficits noted. Tuberculosis screening: No symptoms or risk factors identified. Assessment: 19:53 Reassessment: patient states she is about 9 weeks . General: Appears in no al5 apparent distress. comfortable, Behavior is calm, cooperative. Pain: Complains of pain in right upper quadrant and left upper quadrant. Neuro: Level of Consciousness is awake, alert, obeys commands, Oriented to person, place, time, situation. Cardiovascular: Capillary refill < 3 seconds Patient's skin is warm and dry. Respiratory: Airway is patent Respiratory effort is even, unlabored, Respiratory pattern is regular, symmetrical. GI: Abdomen is flat, non-distended, Bowel sounds present X 4 quads. Reports upper abdominal pain. : No signs and/or symptoms were reported regarding the genitourinary system. EENT: No signs and/or symptoms were reported regarding the EENT system. Derm: Skin is intact, is healthy with good turgor, Skin is pink, warm \T\ dry. normal. Musculoskeletal: No signs and/or symptoms reported regarding the musculoskeletal system. Vital Signs: 19:06 BP 103 / 69; Pulse 87; Resp 16; Temp 97.9; Pulse Ox 100% on R/A; Weight 61.23 kg; dd2 Height 5 ft. 7 in. ; Pain 2/10; 19:30 BP 127 / 76; Pulse 90; Resp 18; Pulse Ox 100% ; al5 20:00 BP 104 / 73; Pulse 89; Resp 16; Pulse Ox 100% ; al5 20:30 BP 108 / 83; Pulse 88; Resp 17; Pulse Ox 100% ; al5 21:00 BP 103 / 61; Pulse 83; Resp 16; Pulse Ox 100% ; al5 19:06 Body Mass Index 21.14 (61.23 kg, 170.18 cm) dd2 19:06 Pain Scale: Adult dd2 ED Course: 18:50 Patient arrived in ED. al6 18:52 Seferino Villa PA is PHCP. cp 18:52 Hayde Quan MD is Attending Physician. cp 19:08 Triage completed. dd2 19:08 Arm band placed on right wrist. dd2 19:30 Inserted saline lock: 20 gauge in right antecubital area, using aseptic technique. hw Blood collected. Flushed with 10 mL NS. 19:30 Abo/rh Typing Sent. hw 19:30 Basic Metabolic Panel Sent. hw 19:31 CBC with Diff Sent. hw 19:40 Cassie Osuna, RAS is Primary Nurse. al5 19:43 Patient has correct armband on for positive identification. Bed in low position. Call al5 light in reach. Side rails up X2. Provided Education on: plan of care. 19:46 Abo/rh Typing Sent. hw 19:46 Basic Metabolic Panel Sent. hw 19:52 US Transvaginal Ob In Process Unspecified. EDMS 19:53 Test, Urine Sent. hw 19:53 Quantitative Hcg Sent. hw 19:53 Urinalysis w/ reflexes Sent. hw 21:21 IV discontinued, intact, bleeding controlled, No redness/swelling at site. Pressure hw dressing applied. 21:28 No provider procedures requiring assistance completed. al5 Administered Medications: 19:52 Not Given (Patient Refused): [id number] mg PO once al5 19:52 Drug: NS 0.9% IV 500 ml 500 ml IV at 1 bolus once; to be given as a bolus over 30 al5 minutes Volume: 500 ml; Route: IV; Rate: 1 bolus; Site: right antecubital; 21:27 Follow up: Response: No adverse reaction; IV Status: Completed infusion; IV Intake: al5 500ml Medication: 19:43 VIS not applicable for this client. al5 Intake: 21:27 IV: 500ml; Total: 500ml. al5 Outcome: 20:57 Discharge ordered by . bryan 21:28 Discharged to home ambulatory, with family, al5 21:28 Condition: good 21:28 Discharge instructions given to patient, Instructed on discharge instructions, follow up and referral plans. Demonstrated understanding of instructions, follow-up care, 21:29 Patient left the ED. al5 Signatures: Dispatcher [employer] EDMS Seferino Villa PA PA cp Langhorst, Amanda RN RN al5 BASIM FLORES RN RN dd2 Delmi Ball Alissa al6 Corrections: (The following items were deleted from the chart) 19:42 19:08 LMP 05/25/2024, unknown dd2 al5
--- NOTE | 2024-08-02 20:58 | EDPHYS ---
Physician Documentation [facility] Name: Digna Gonzalez Age: 24 yrs Sex: Female : 2000 Arrival Date: 08/02/2024 Time: 18:48 Bed 19 Private MD: ED Physician Hayde Quan HPI: 08/02 19:20 This 24 yrs old Black Female presents to ER via Ambulatory with complaints of Abdominal cp Pain. 19:20 The patient presents with abdominal pain in the lower abdomen. Onset: The cp symptoms/episode began/occurred 1 week(s) ago. The symptoms do not radiate. Associated signs and symptoms: Pertinent positives: , approximately 9 weeks, Pertinent negatives: anorexia, constipation, dysuria, fever, vomiting, vaginal bleeding. The symptoms are described as crampy. Severity of pain: in the emergency department the pain is unchanged despite home interventions. 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 - Infectious Disease History:: Denies. - Social history:: Smoking status: Patient denies any tobacco usage or history of. ROS: 19:25 Constitutional: Negative for body aches, chills, fever, poor PO intake, cp 19:25 Eyes: Negative for injury, pain, redness, and discharge, cp 19:25 Cardiovascular: Negative for chest pain, palpitations, 19:25 Respiratory: Negative for cough, shortness of breath, wheezing, 19:25 Abdomen/GI: Positive for abdominal cramps, of the right lower quadrant and left lower quadrant, Negative for vomiting, diarrhea, constipation, 19:25 : Negative for urinary symptoms, vaginal bleeding, 19:25 All other systems are negative, Exam: 19:30 Constitutional: The patient appears in no acute distress, alert, awake, non-toxic, well cp developed, well nourished, 19:30 Head/Face: Normocephalic, atraumatic. cp 19:30 Eyes: Periorbital structures: appear normal, Conjunctiva: normal, no exudate, no injection, Sclera: no appreciated abnormality, Lids and lashes: appear normal, bilaterally, 19:30 ENT: External ear(s): are unremarkable, Nose: is normal, Mouth: Lips: moist, Oral mucosa: moist, Posterior pharynx: Airway: no evidence of obstruction, patent, 19:30 Chest/axilla: Inspection: normal, 19:30 Cardiovascular: Rate: normal, Rhythm: regular, 19:30 Respiratory: the patient does not display signs of respiratory distress, Respirations: normal, no use of accessory muscles, no retractions, labored breathing, is not present, Breath sounds: are clear throughout, no decreased breath sounds, no stridor, no wheezing, 19:30 Abdomen/GI: Inspection: abdomen appears normal, Bowel sounds: active, all quadrants, Palpation: soft, in all quadrants, mild abdominal tenderness, in the right lower quadrant and left lower quadrant, rebound tenderness, is not appreciated, involuntary guarding, is not appreciated, 19:30 Back: CVA tenderness, is absent, 19:30 Neuro: Orientation: to person, place \T\ time. Mentation: is normal, Motor: moves all fours, strength is normal, Sensation: is normal, Vital Signs: 19:06 BP 103 / 69; Pulse 87; Resp 16; Temp 97.9; Pulse Ox 100% on R/A; Weight 61.23 kg; dd2 Height 5 ft. 7 in. ; Pain 2/10; 19:30 BP 127 / 76; Pulse 90; Resp 18; Pulse Ox 100% ; al5 20:00 BP 104 / 73; Pulse 89; Resp 16; Pulse Ox 100% ; al5 20:30 BP 108 / 83; Pulse 88; Resp 17; Pulse Ox 100% ; al5 21:00 BP 103 / 61; Pulse 83; Resp 16; Pulse Ox 100% ; al5 19:06 Body Mass Index 21.14 (61.23 kg, 170.18 cm) dd2 19:06 Pain Scale: Adult dd2 MDM: 19:12 Medical Screening Exam initiated cp 20:00 Differential diagnosis: appendicitis, Ectopic , non-specific abd pain, Ovarian cp Torsion, Pelvic Inflammatory Disease, Pyelonephritis, Tubal Ovarian Abcess, Ureterolithiasis, urinary tract infection. 20:56 Data reviewed: vital signs, nurses notes, lab test result(s), radiologic studies, cp ultrasound, and as a result, I will discharge patient. 20:57 I considered the following discharge prescriptions or medication management in the emergency department Medications were administered in the Emergency Department. See JUN. 20:57 Counseling: I had a detailed discussion with the patient and/or guardian regarding the historical points, exam findings, and any diagnostic results supporting the discharge/admit diagnosis, lab results, radiology results, to return to the emergency department if symptoms worsen or persist or if there are any questions or concerns that arise at home. Response to treatment: the patient's symptoms have markedly improved after treatment, and as a result, I will discharge patient. 08/02 19:14 Order name: Abo/rh Typing; Complete Time: 20:50 08/02 19:14 Order name: Basic Metabolic Panel; Complete Time: 20:50 08/02 20:50 Interpretation: Normal except: NA 134; CRE 0.50. 08/02 19:14 Order name: CBC with Diff; Complete Time: 20:50 08/02 20:50 Interpretation: Normal except: HGB 11.9; HCT 33.7. 08/02 19:14 Order name: Test, Urine; Complete Time: 20:50 cp 08/02 20:50 Interpretation: Reviewed. 08/02 19:14 Order name: Quantitative Hcg; Complete Time: 20:50 08/02 19:14 Order name: Urinalysis w/ reflexes; Complete Time: 20:50 08/02 20:17 Order name: Urine Culture EDCO 08/02 19:14 Order name: US Transvaginal Ob; Complete Time: 20:50 08/02 20:50 Interpretation: Report reviewed. 08/02 19:14 Order name: IV Saline Lock; Complete Time: 19:30 cp 08/02 19:14 Order name: Labs collected and sent; Complete Time: 19:30 cp 08/02 19:14 Order name: NPO; Complete Time: 19:44 cp Administered Medications: 19:52 Not Given (Patient Refused): [id number] mg PO once al5 19:52 Drug: NS 0.9% IV 500 ml 500 ml IV at 1 bolus once; to be given as a bolus over 30 al5 minutes Volume: 500 ml; Route: IV; Rate: 1 bolus; Site: right antecubital; 21:27 Follow up: Response: No adverse reaction; IV Status: Completed infusion; IV Intake: al5 500ml Disposition Summary: 08/02/24 20:57 Discharge Ordered Notes: Location: Home cp Problem: new cp Symptoms: have improved cp Condition: Stable cp Diagnosis - related conditions, unspecified, first trimester cp Followup: cp - With: Private Physician - When: as scheduled - Reason: Recheck today's complaints Discharge Instructions: - Discharge Summary Sheet cp - Abdominal Pain During cp - First Trimester of cp - Activity Restriction During cp Forms: - Medication Reconciliation Form cp - Antibiotic Education cp - Prescription Opioid Use cp - Patient Portal Instructions cp - Leadership Thank You Letter cp - Work release form al5 Signatures: Dispatcher [employer] EDMS Seferino Villa PA PA cp Langhorst, Amanda, RN RN al5 BASIM FLORES RN RN dd2 Corrections: (The following items were deleted from the chart) 19:14 19:14 ABO/RH TYPING+BB.LAB.BRZ ordered. EDMS EDMS 19:14 19:14 BASIC METABOLIC PANEL+C.LAB.BRZ ordered. EDMS EDMS 19:14 19:14 CBC+H.LAB.BRZ ordered. EDMS EDMS 19:14 19:14 Test, Urine+UC.LAB.BRZ ordered. EDMS EDMS 19:14 19:14 QUANTITATIVE HCG+C.LAB.BRZ ordered. EDMS EDMS 19:14 19:14 Urinalysis+U.LAB.BRZ ordered. EDMS EDMS
[2024-08-02 22:41] VITALS: TEMP 97.9; O2SAT 100
[2024-08-02 22:46] VITALS: BP 103/61
== END 2024-08-02 21:29 | disposition home or self-care (01) ==
LOC: ER 18:48
DX: O26.891 Other specified pregnancy related conditions, first trimester (principal); Z3A.09 9 weeks gestation of pregnancy
CPT/HCPCS: 36415; 76817; 80048; 81001; 81025; 84702; 85025; 86900; 86901; 87086; 87088; 96360; 96361; 99284; J7040

== ENCOUNTER 2024-08-12 15:42 | Emergency (ER) | payer OTHER ==
--- OUTSIDE RECORDS SUMMARY | 2024-08-12 15:45 | XMS REPORT | Continuity of Care Document ---
Author Name Unknown Address [address] [facility] [place] [address] [facility] Address [address] [facility] [place] [address] Care Team Providers Care Training Coordinator Name Role Phone Kisha Lincoln Primary Care Physician STEPHY WIGGINS Attending Clinician Unavailable STEPHY WIGGINS Attending Clinician Unavailable KISHA WILKS Attending Clinician Unavailable KISHA WILKS Attending Clinician Unavailable Lab, Ang - Db Attending Clinician Unavailable Kisha Wilks MD Attending Clinician [phone] Doctor Unassigned, [place] Attending Clinician U Stephy Storm MD Attending Clinician [phone] Ena Galan PA-C Attending Clinician [phone] ENA GALAN Attending Clinician Unavailable Hodan Mabry RN Attending Clinician [facility] Nurse, [facility] Attending Clinician Un available Payers Payer Name Policy Type Policy Number Effective Date Expirati on Date Source [facility] [id number] 2020 00:00:00 [facility] [id number] 2020 00:00:00 Problems Condition Name Condition Details Condition Category Status Onset Date Resolution Date Last Treatment Date Treating Clinician Comments Source Encounter for supervisio n of normal first in first trimester Encounter for supervisio n of normal first in first trimester Disease Active 08-06 00:00: 00 Barry tidwell [facility] 9 weeks gestation of 9 weeks gestation of Disease Active 08-06 00:00: 00 [facility] Well woman exam (no gynecologi vanessa exam) Well woman exam (no gynecologi vanessa exam) Disease Resolve d 7 00:00: 00 2024-08-06 00:00:00 2024-08-06 15:23:54 [facility] Nexplanon in place Nexplanon in place Disease Resolve d 7 00:00: 00 2023-12-06 00:00:00 2023-12-06 10:15:10 [facility] Allergies, Adverse Reactions, Alerts Allergy Name Allergy Type Status Severity Reaction(s) Onset Date Inactive Date Treating Clinician Comments Source NO KNOWN ALLERGIE S Drug Class Active [facility] Social History Social Habit Start Date Stop Date Quantity Comments Source ASSERTION 2024-06-14 00:00:[address] [facility] [place] [place] [facility] History of tobacco use Passive smoker [facility] [place] [place] Alcoholic beverage intake 2024-08-06 00:00:00 2024-08-06 00:00:00 Lifetime non-drinker (finding) [facility] [place] [place] Alcohol Comment 2022-11-28 00:00:00 2022-11-28 00:00:[address] [facility] [place] [place] Alcohol intake 2022-11-28 00:00:00 2022-11-28 00:00:00 Lifetime non-drinker (finding) [facility] [place] [place] Exposure to SARS-CoV-2 (event) 2022-06-23 00:00:00 2022-07-03 11:46:[address] [facility] [place] [place] Tobacco use and exposure 2021-11-22 00:00:00 2021-11-22 00:00:00 Smokeless tobacco non-user [facility] [place] [place] History of Social function 2021-11-22 00:00:00 2021-11-22 00:00:[address] [facility] [place] [place] Sex assigned at 2000 00:00:00 2000 00:00:[address] [facility] [place] [place] Smoking Status Start Date Stop Date Source Never smoked tobacco [facility] Medications Ordered Medication Name Filled Medication Name Start Date Stop Date Current Medication? Ordering Clinician Indication Dosage Frequency Signature (SIG) Comments Components Source metroNIDAZO LE (FLAGYL) 500 mg tablet 12-01 00:00: 00 12-09 04:59 :00 No [id number] 500mg Take 1 tablet by mouth in the morning and 1 tablet in the evening. Do all this for 7 days. [facility] metroNIDAZO LE 500 mg tablet 07-05 00:00: 00 12-05 00:00 :00 No [id number] 500mg Take 1 tablet by mouth every 12 (twelve) hours. [facility] fluconazole 150 mg tablet 07-05 00:00: 00 07-06 04:59 :00 No [id number] 150mg Take 1 tablet by mouth once now for 1 dose. [facility] Dose Unknown 11-29 00:00: 00 No 500 Dose Unknown 11-29 00:00: 00 No 600 doxycycline hyclate 100 mg tablet 11-24 00:00: 00 07-04 00:00 :00 No [id number] 100mg Take 1 tablet by mouth in the morning and 1 tablet in the evening. [facility] Nexplanon 68 mg subdermal implant 10-12 00:00: 00 No 1mg Dose Unknown 10-12 00:00: 00 No TAKE 1 TABLET BY MOUTH EVERY 6 HOURS NEEDED FOR PAIN 10-12 00:00: 00 No TAKE 1 TABLET BY MOUTH EVERY 6 HOURS NEEDED FOR PAIN 10-08 00:00: 00 No Dose Unknown 10-08 00:00: 00 No TAKE 1 TABLET BY MOUTH EVERY 6 HOURS NEEDED FOR PAIN 10-05 00:00: 00 No TAKE 1 CAPSULE BY MOUTH THREE TIMES DAILY 10-05 00:00: 00 No amoxicillin 875 mg tablet 06-26 00:00: 00 No 1mg ibuprofen 600 mg tablet 2018-04 00:00: 00 No 1mg Nexplanon 68 mg subdermal implant 10-01 00:00: 00 No 1mg Immunizations Ordered Immunization Name Filled Immunization Name Date Status Comments Source HPV9 2023-12-06 09:30:[address] [facility] [place] [place] SARS-COV-2 COVID 19 GLENNA SUCROSE VACCINE 12+, , 0.3 ML (30 MCG), IM PFIZER (PEREZ TOP) 2023-12-06 09:30:[address] [facility] [place] [place] HPV9 2023-05-31 00:00:[address] [facility] [place] [place] HPV9 2023-05-11 00:00:[address] [facility] [place] [place] HPV9 2022-07-05 00:00:[address] [facility] [place] [place] HPV9 2022-07-04 00:00:[address] [facility] [place] [place] HPV9 2022-05-25 00:00:[address] [facility] [place] [place] HPV9 2022-05-25 00:00:[address] [facility] [place] [place] HPV9 2022-05-25 00:00:[address] [facility] [place] [place] HPV9 2022-05-25 00:00:[address] [facility] [place] [place] HPV9 2022-05-25 00:00:[address] [facility] [place] [place] HPV9 2022-05-25 00:00:[address] [facility] [place] [place] HPV9 2022-05-25 00:00:00 Completed HPV9 2022-02-01 00:00:[address] [facility] [place] [place] HPV9 2022-01-26 00:00:[address] [facility] [place] [place] HPV9 2022-01-26 00:00:[address] [facility] [place] [place] HPV9 2022-01-26 00:00:[address] [facility] [place] [place] HPV9 2022-01-26 00:00:[address] [facility] [place] [place] HPV9 2022-01-26 00:00:[address] [facility] [place] [place] HPV9 2022-01-26 00:00:[address] [facility] [place] [place] HPV9 2022-01-26 00:00:[address] [facility] [place] [place] HPV9 2022-01-26 00:00:[address] [facility] [place] [place] HPV9 2022-01-26 00:00:[address] [facility] [place] [place] HPV9 2021-11-25 00:00:[address] [facility] [place] [place] HPV9 2021-11-24 00:00:00 Completed [facility] 2021-11-23 00:00:00 Completed [facility] 2021-11-22 00:00:00 Completed [facility] 2021-11-22 00:00:00 Completed [facility] 2021-11-22 00:00:00 Completed [facility] 2021-11-22 00:00:00 Completed [facility] 2021-11-22 00:00:00 Completed [facility] 2021-11-22 00:00:00 Completed [facility] 2021-11-22 00:00:00 Completed [facility] 2021-11-22 00:00:00 Completed [facility] 2021-11-22 00:00:[address] [facility] [place] Vital Signs Vital Name Observation Time Observation Value Comments S ource Systolic blood pressure 2024-08-06 20:12:00 111 mm[Hg] [facility] Diastolic blood pressure 2024-08-06 20:12:00 71 mm[Hg] [facility] Heart rate 2024-08-06 20:12:00 83 /min [facility] Body temperature 2024-08-06 20:12:[address] [facility] [place] Respiratory rate 2024-08-06 20:12:00 18 /min [facility] [place] Body height 2024-08-06 20:12:00 170.2 cm [facility] Body weight 2024-08-06 20:12:00 57.289 kg [facility] BMI 2024-08-06 20:12:00 19.78 kg/m2 [facility] Oxygen saturation in Arterial blood by Pulse oximetry 2024-08-06 20:12:00 99 /min [facility] Systolic blood pressure 2023-12-06 14:31:00 119 mm[Hg] [facility] Diastolic blood pressure 2023-12-06 14:31:00 76 mm[Hg] [facility] Heart rate 2023-12-06 14:31:00 75 /min [facility] Body temperature 2023-12-06 14:31:[address] [facility] [place] [place] Body height 2023-12-06 14:31:00 167.6 cm [facility] weight 2023-12-06 14:31:00 54.159 kg Univ [facility] BMI 2023-12-06 14:31:00 19.27 kg/m2 [facility] Systolic blood pressure 2022-11-28 14:26:00 116 mm[Hg] [facility] Diastolic blood pressure 2022-11-28 14:26:00 79 mm[Hg] [facility] Heart rate 2022-11-28 14:26:00 71 /min [facility] Body temperature 2022-11-28 14:26:[address] [facility] [place] [place] Body height 2022-11-28 14:26:00 167.6 cm [facility] Body weight 2022-11-28 14:26:00 53.162 kg Univ [facility] BMI 2022-11-28 14:26:00 18.92 kg/m2 Univ [facility] Systolic blood pressure 2022-07-04 14:52:00 117 mm[Hg] [facility] Diastolic blood pressure 2022-07-04 14:52:00 80 mm[Hg] [facility] Heart rate 2022-07-04 14:52:00 78 /min [facility] Body temperature 2022-07-04 14:52:[address] [facility] [place] [place] Respiratory rate 2022-07-04 14:52:00 18 /min [facility] [place] Body height 2022-07-04 14:52:00 167.6 cm Univ [facility] Systolic blood pressure 2022-05-25 14:10:00 114 mm[Hg] [facility] Diastolic blood pressure 2022-05-25 14:10:00 72 mm[Hg] [facility] Heart rate 2022-05-25 14:10:00 70 /min [facility] Body temperature 2022-05-25 14:10:[address] [facility] [place] [place] Body height 2022-05-25 14:10:00 167.6 cm [facility] Body weight 2022-05-25 14:10:00 55.702 kg Univ [facility] BMI 2022-05-25 14:10:00 19.82 kg/m2 Univ [facility] Systolic blood pressure 2022-02-02 16:28:00 119 mm[Hg] [facility] Diastolic blood pressure 2022-02-02 16:28:00 80 mm[Hg] [facility] Heart rate 2022-02-02 16:28:00 70 /min [facility] Body temperature 2022-02-02 16:28:[address] [facility] [place] [place] Respiratory rate 2022-02-02 16:28:00 18 /min [facility] [place] [place] Body height 2022-02-02 16:28:00 167.6 cm Univ [facility] Body weight 2022-02-02 16:28:00 59.784 kg Univ [facility] BMI 2022-02-02 16:28:00 21.27 kg/m2 Univ [facility] Systolic blood pressure 2022-01-26 18:42:00 112 mm[Hg] [facility] Diastolic blood pressure 2022-01-26 18:42:00 73 mm[Hg] [facility] Heart rate 2022-01-26 18:42:00 65 /min [facility] Body temperature 2022-01-26 18:42:[address] [facility] [place] [place] Respiratory rate 2022-01-26 18:42:00 16 /min [facility] [place] [place] Body height 2022-01-26 18:42:00 167.6 cm Univ [facility] Body weight 2022-01-26 18:42:00 59.512 kg Univ [facility] BMI 2022-01-26 18:42:00 21.18 kg/m2 Univ [facility] BP Systolic 2021-10-12 11:33:00 126 mm[Hg] BP [...] Procedure Date / Time Performed Performing Clinician Source OB TRANSVAGINAL 2024-08-06 20:49:02 AdumKisha [facility] OB TRANSVAGINAL 2024-08-06 20:48:[address] [facility] [place] [place] POCT TEST 2024-08-06 20:19:[address] [facility] [place] [place] POCT URINALYSIS W/O SPECIFIC GRAVITY 2024-08-06 20:17:[address] [facility] [place] [place] POCT URINALYSIS W/O SPECIFIC GRAVITY 2022-07-04 00:00:[address] [facility] [place] [place] GARDASIL 9 (HPV 9V) VACCINE 2022-05-25 14:12:[address] [facility] [place] [place] GARDASIL 9 (HPV 9V) VACCINE 2022-01-26 18:59:[address] [facility] [place] [place] Plan of Care Planned Activity Planned Date Details Comments Source Goal Plan of Care Note [code = 90283-4] Goal Plan of Care Note [code = 97651-4] Goal Plan of Care Note [code = 10440-9] Goal Plan of Care Note [code = 38969-1] Goal Plan of Care Note [code = 86533-1] Goal Plan of Care Note [code = 49036-7] Goal Plan of Care Note [code = 59680-6] Goal Plan of Care Note [code = 53412-3] Goal Plan of Care Note [code = 50964-3] Goal Plan of Care Note [code = 27452-6] Goal Plan of Care Note [code = 90972-3] Goal Plan of Care Note [code = 06668-1] Goal Plan of Care Note [code = 45521-6] Goal Plan of Care Note [code = 60155-3] Goal Plan of Care Note [code = 09754-5] Goal Plan of Care Note [code = 43480-1] Goal Plan of Care Note [code = 26104-2] Goal Plan of Care Note [code = 88074-8] Goal Plan of Care Note [code = 42035-9] Goal Plan of Care Note [code = 00735-7] Goal Plan of Care Note [code = 85282-4] Goal Plan of Care Note [code = 59784-6] Goal Plan of Care Note [code = 35210-8] Goal Plan of Care Note [code = 08805-0] Goal Plan of Care Note [code = 09869-9] Goal Plan of Care Note [code = 59008-8] Goal Plan of Care Note [code = 14428-2] Goal Plan of Care Note [code = 48408-7] Goal Plan of Care Note [code = 37139-9] Goal Plan of Care Note [code = 27495-7] Goal Plan of Care Note [code = 34046-0] Goal Plan of Care Note [code = 67325-6] Goal Plan of Care Note [code = 33177-6] Goal Plan of Care Note [code = 55116-5] Goal Plan of Care Note [code = 09822-8] Goal Plan of Care Note [code = 00577-1] Goal Plan of Care Note [code = 38608-0] Goal Plan of Care Note [code = 60690-8] Encounters Start Date/Time End Date/Time Encounter Type Admission Type Attending [facility] Care Facility Care Department Encounter ID Source 2024-08-06 17:00:00 2024-08-06 17:15:00 Procurement Agent Visit Lab, Kisha Johnson Lab, Sai Smith [facility] 1.2.840.114 350.1.13.10 4.2.7.2.686 [id number] [facility] 2024-08-06 14:30:00 2024-08-06 15:52:31 Outpatient R KISHA WILKS [facility] [id number] [facility] 2024-08-06 14:30:00 2024-08-06 15:52:31 Initial Visit Kisha Wilks [facility] 1.2.840.114 350.1.13.10 4.2.7.2.686 [id number] 134 [id number] [facility] 2023-12-20 00:00:00 2024-01-20 18:19:48 Patient Secure Msg Doctor Unassigned, [place] Doctor Unassigned, [place] [facility] 1.2.840.114 350.1.13.10 4.2.7.2.686 [id number] 134 [id number] [facility] 2023-12-06 09:30:00 2023-12-06 10:01:21 Outpatient R STEPHY WIGGINS [facility] [id number] [facility] 2023-12-06 09:30:00 2023-12-06 10:01:21 Office Visit Stephy Wiggins [facility] 1.2.840.114 350.1.13.10 4.2.7.2.686 [id number] 134 [id number] [facility] 2023-05-31 00:00:00 2023-05-31 00:00:00 Ena Mobley [facility] 1.2.840.114 350.1.13.10 4.2.7.2.686 [id number] [facility] 2023-05-16 08:30:00 2023-05-16 08:30:00 Outpatient R STEPHY WIGGINS [facility] [id number] [facility] 2023-05-11 00:00:00 2023-05-11 00:00:00 Patient Secure Msg Stephy Wiggins [facility] 1.2.840.114 350.1.13.10 4.2.7.2.686 [id number] 134 [id number] [facility] 2022-12-19 15:01:26 2022-12-19 15:01:[address] [facility] [id number] Higginbotham 2022-12-01 00:00:00 2022-12-01 00:00:00 Case Management Stephy Wiggins Romulo [facility] 1.2.840.114 350.1.13.10 4.2.7.2.686 [id number] 134 [id number] [facility] 2022-11-28 09:30:00 2022-11-28 09:38:27 Outpatient R WIGGINS STEPHY WIGGINS [facility] [id number] [facility] 2022-11-28 09:30:00 2022-11-28 09:38:27 Office Visit Stephy Wiggins [facility] 1.2.840.114 350.1.13.10 4.2.7.2.686 [id number] [facility] 2022-07-06 00:00:00 2022-07-06 00:00:00 Patient Secure g Clotilde Hodan [facility] 1.2840.114 350.1.13.10 4.2.7.2.686 [id number] [facility] 2022-07-05 00:00:00 2022-07-05 00:00:00 Case Management Ena Galan [facility] 1.2.840.114 350.1.13.10 4.2.7.2.686 [id number] [facility] 2022-07-05 00:00:00 2022-07-05 00:00:00 [facility] 1.2.840.114 350.1.13.10 4.2.7.2.686 [id number] [facility] 2022-07-04 10:00:00 2022-07-04 10:53:46 Outpatient R ENA GALAN [facility] [id number] [facility] 2022-07-04 10:00:00 2022-07-04 10:53:46 Office Visit Ena Galan [facility] 1.2.840.114 350.1.13.10 4.2.7.2.686 [id number] [facility] 2022-07-04 00:00:00 2022-07-04 00:00:00 Patient Secure Msg Adama [facility] 1.2.840.114 350.1.13.10 4.2.7.2.686 [id number] [facility] 2022-05-25 08:00:00 2022-05-25 08:15:00 Nurse Visit Nurse, [facility] Ena Galan [facility] 1.2.840.114 350.1.13.10 4.2.7.2.686 [id number] 134 [id number] [facility] 2022-05-25 08:00:00 2022-05-25 08:00:00 Outpatient R ENA GALAN [facility] [id number] [facility] 2022-05-25 08:00:00 2022-05-25 08:00:00 Outpatient R [facility] [id number] [facility] 2022-02-02 13:00:00 2022-02-02 13:00:00 Office Visit Ena Galan [facility] 1.2.840.114 350.1.13.10 4.2.7.2.686 [id number] 134 [id number] [facility] 2022-02-02 13:00:00 2022-02-02 11:48:47 Outpatient R ADAMA ENA [facility] [id number] [facility] 2022-02-01 00:00:00 2022-02-01 00:00:00 Patient Secure Msg Stephy Wiggins [facility] 1.2.840.114 350.1.13.10 4.2.7.2.686 [id number] [facility] 2022-01-26 14:00:00 2022-01-26 14:00:00 Outpatient Leonora GALAN ENA [facility] [id number] [facility] 2022-01-26 14:00:00 2022-01-26 14:00:00 Nurse Visit Nurse, [facility] Ariasmartha [facility] 1.2.840.114 350.1.13.10 4.2.7.2.686 [id number] [facility] 2022-01-24 08:00:00 2022-01-24 08:00:00 Outpatient R [facility] [id number] [facility] 2021-11-29 00:00:00 2021-11-29 00:00:00 Outpatient Visit [id number] 2021-11-25 00:00:00 2021-11-25 00:00:00 Patient Secure Msg Stephy Wiggins [facility] 1.2.840.114 350.1.13.10 4.2.7.2.686 [id number] [facility] 2021-11-25 00:00:00 2021-11-25 00:00:00 Telephone Stephy Wiggins [facility] 1.2.840.114 350.1.13.10 4.2.7.2.686 [id number] [facility] 2021-11-24 00:00:00 2021-11-24 00:00:00 Patient Secure Msg Stephy Wiggins [facility] 1.2.840.114 350.1.13.10 4.2.7.2.686 [id number] [facility] 2021-11-24 00:00:00 2021-11-24 00:00:00 Case Management Adama Ena [facility] 1.2.840.114 350.1.13.10 4.2.7.2.686 [id number] [facility] 2021-11-23 00:00:00 2021-11-23 00:00:00 Patient Secure Msg Stephy Wiggins [facility] BUILDING 1.2.840.114 350.1.13.10 4.2.7.2.686 [id number] [facility] 2021-11-22 08:00:00 2021-11-22 09:06:55 Outpatient R STEPHY WIGGINS [facility] [id number] [facility] 2021-11-22 08:00:00 2021-11-22 09:06:55 Office Visit Stephy Wiggins [facility] 1.2.840.114 350.1.13.10 4.2.7.2.686 [id number] [facility] 2021-10-12 00:00:00 2021-10-12 00:00:00 Outpatient Visit [id number] 2021-01-20 14:16:03 2021-01-20 14:52:14 Office Visit Ena Galan [facility] 1.2.840.114 350.1.13.10 4.2.7.2.686 [id number] [facility] 2021-01-20 14:30:00 2021-01-20 14:30:00 Outpatient STEPHY STONE [facility] [id number] [facility] 2021-01-14 00:00:00 2021-01-14 00:00:00 Patient Secure Stephy Clayton [facility] 1.2.840.114 350.1.13.10 4.2.7.2.686 [id number] [facility] 2020-10-15 13:30:00 2020-10-15 13:30:00 Outpatient STEPHY STONE [facility] [id number] [facility] Results Test Description Test Time Test Comments Results Result Co mments Source [facility] [place] Ur[place] w/o Specific [id number] 20:17:00* Test Item Value Reference Range Interpretation Comme nts POCT PH U (test code = 3254) na 5-8 POCT U LEUK EST (test code = 3263) na Negative - Negative POCT U NIT (test code = 3262) na Negative - Negati ve POCT U PROT (test code = 3259) negative Negative - Negat mattie POCT U GLU (test code = 3256) negative Negative - Negati ve POCT U KETONE (test code = 3258) na Negative - Neg ative POCT U BLD (test code = 3257) na Negative - Negati ve [facility] [place] [place]IN[place] W/O SPECIFIC [id number] 15:16:00* Test Item Value Reference Range Interpretation [...] = 3257) neg Negative - Negati ve [facility] [place] [place] W/O SPECIFIC [id number] 15:16:00* Test Item Value Reference Range Interpretation [...] = 3257) neg Negative - Negati ve [facility] [place] Notes Date/Time Note Provider Source 2024-08-06 17:00:00 Images from the original note were not included. Venipuncture collection performed by clean technique on the right anticubitus. Total of 1 attempts were made. Slight pressure and a bandage/dressing were applied to the site(s). The patient experienced no complications. The following specimens were processed according to instructions and sent to [facility] laboratories per lab order on TODAY: LT BLUE SST 3 RED 1 LAV 3 PPT DK GREEN (LiHep) DK GREEN (SodH) PEREZ DK BLUE (K2) DK BLUE (S) ACD Blood Culture NIPT/NTD Patient has been identified by name and was provided with cup, antiseptic towelette, and clean catch instructions. 2 urine specimen(s) sent. Unpreserved Urine Culture 1 Aptima tube Other urine Urine drug screen [facility] 2024-08-06 14:30:00 Age: [age] year old GA: 9w4d New OB Visit Digna Calvo is a 24 year old at 9w4d by an [facility] presents for Initial OB visit today.She has no concerns today Denies vaginal bleeding, abdominal pain or cramps. She reports some nausea especially with taking her PNV Work at a [employer]. She is in a stable relationship and FOB is involved and supportive. She denies domestic violence/immediate partner violence. Assessment/Plan Encounter for supervision of normal first in first trimester (primary encounter diagnosis) Missed menses 9 weeks gestation of Discussed do's and don'ts of , safe foods, safe medications. NOB folder given We discussed course, labs, aneuploidy and genetic carrier screening and ultrasounds. Expectations for weight gain this include 25-30 pounds. Exercise in discussed and encouraged. aneuploidy options were reviewed including NIPT: cFDNA test and 2nd trimester QUAD screen. The benefits and short falls of these screening tests were reviewed. Also discussed diagnostic tests: CVS vs amniocentesis. She is undecided on the testing, written information were provided and we will discuss further at next appointment. Reviewed Zika virus precautions .Discussed about COVID-19/flu precautions. Social distancing, frequent hand washings, signs/symptoms for testing and to follow CDC recommendations discussed. I discussed the call schedule and that I deliver here at [facility]. I discussed that I have two partners, Dr. Wiggins and Dr. Caceres and that they may deliver her or take care of her during her . I discussed that at [facility] we do not have a NICU, and that high risk pregnancies or deliveries less than 36 weeks will be transferred to [place]. All questions were answered. NOB labs today precautions reviewed Encouraged to call if have any additional questions or concerns. Plan: POCT Test, POCT Urinalysis w/o Specific [place], Workup, Blood Bank, Hcv Antibody, Urine Culture, HIV 1/2 Ag-Ab with Reflex, Rubella Screen IgG, [facility] or [facility] Only - Rpr, VZV Antibody Screen, Hepatitis B Surface Antigen, Urine Drug (Immunoassay) - Comprehensive Drug Screen, Cbc with Diff, Glycosylated Hemoglobin (A1C), Sickle Cell ScreenPAP Smear-Liquid Based, GC & CHLAMYDIA AMPLIFIED ASSAY, TRICHOMONAS AMPLIFIED ASSAY, PAP Smear-Liquid Based, GC & CHLAMYDIA AMPLIFIED ASSAY, TRICHOMONAS AMPLIFIED ASSAY Encounter to determine viability of , single or unspecified fetus Plan: OB Ultrasound Transvaginal, OB Ultrasound Transvaginal, Return to clinic in 4 weeks for RAFAEL or PRN Discussed treatment options. Reviewed patient instructions and provided printed copy. Kisha Wilks MD 08/06/2024 5:53 PM [facility] 2023-05-15 09:36:22 Returned pt call to assist in scheduling. Sooner appointment provided. Pt's insurance is no longer active. Pt will call back after she speaks with insurance company to schedule an appointment. H WORKER Sun Lubin [facility]
[2024-08-12 16:11] LABS: Absolute Lymphocytes (CBC) 1.3 K/uL (0.7-4.9); Absolute Monocytes 0.7 K/uL (0.1-1.3); Absolute Neutrophil 9.7 K/uL (1.8-8.0); Basophils % 0.2 % (0-1.3); Eosinophils % 0.2 % (0-4.4); Hematocrit 35.2 % (36.0-45.0); Hemoglobin 12.1 g/dL (12.0-15.0); MCHC 34.3 g/dL (32.0-36.0); MCV 87.3 fL (80-100); MPV 8.4 fL (7.6-11.3); Monocytes % 5.9 % (3.3-12.3); Neutrophils % 82.7 % (41.7-73.7); Nucleated Red Blood Cells % 0.1 % (0-0); Platelets 232 thou/uL (152-406); RBC Red Blood Cell Count 4.03 M/uL (3.86-4.86); Red Cell Distribution Width 12.8 % (12.1-15.2)
[2024-08-12] MEDS ORDERED: NA CHLORIDE 0.9% 1,000 ML ONE (16:25)
[2024-08-12 16:29] LABS: Anion Gap 11.5 mEq/L (5.0-15.0); BUN Blood Urea Nitrogen 14 mg/dL (7-18); Bicarbonate 21 mEq/L (21-32); Glomerular Filtration Rate 125 ml/min (=/>90); Glucose Level 129 mg/dL (74-106); Potassium 3.5 mEq/L (3.5-5.1); Sodium Level 133 mEq/L (136-145)
[2024-08-12 16:34] LABS: Troponin High Sensitivity < 3.0 pg/mL (<58.9)
--- NOTE | 2024-08-12 18:13 | EDPHYS ---
Physician Documentation [facility] Name: Digna Gonzalez Age: 24 yrs Sex: Female : 2000 Arrival Date: 08/12/2024 Time: 15:42 Bed 20 Private MD: ED Physician Roger Davila HPI: 08/12 15:46 This 24 yrs old Black Female presents to ER via Unassigned with complaints of Chest kb Tightness. 15:46 Pt is a 24 year old female who presents for chest tightness that started at 1300. kb States tightness is improving. Reports lightheadedness with symptom onset. Denies cough, congestion, fever. Denies abd pain, vaginal bleeding. Reports she is 10 weeks . A0. LMP 05/25/24. Historical: - Allergies: 15:52 No Known Allergies; ld1 - Home Meds: 15:52 None [Active]; ld1 - PMHx: 15:52 None; ld1 - PSHx: 15:52 None; ld1 - Immunization history:: Adult Immunizations up to date. - Infectious Disease History:: Denies. - Social history:: Smoking status: Patient denies any tobacco usage or history of. ROS: 15:48 Constitutional: As per HPI kb Exam: 15:48 Constitutional: This is a well developed, well nourished patient who is awake, alert, kb and in no acute distress. Head/Face: Normocephalic, atraumatic. ENT: Moist Mucous membranes Cardiovascular: Regular rate Respiratory: Respirations even and unlabored. No increased work of breathing. Talking in full sentences Abdomen/GI: Soft, non-tender. No distention Skin: Warm, dry with normal turgor. Normal color. MS/ Extremity: Pulses equal, no cyanosis. Neurovascular intact. Full, normal range of motion. Neuro: Awake and alert, GCS 15, oriented to person, place, time, and situation. 16:09 ECG was reviewed by the Attending Physician. Vital Signs: 15:51 BP 120 / 70; Pulse 88; Resp 18; Temp 97.3(TE); Pulse Ox 99% on R/A; Weight 57.15 kg; ld1 Height 5 ft. 7 in. ; Pain 10/10; 17:00 BP 125 / 69; Pulse 75; Resp 18; Pulse Ox 99% ; bp 18:24 BP 131 / 72; Pulse 79; Resp 16; Pulse Ox 99% ; bp 15:51 Body Mass Index 19.73 (57.15 kg, 170.18 cm) ld1 15:51 Pain Scale: Adult ld1 MDM: 15:45 Medical Screening Exam initiated kb 15:48 Data reviewed: vital signs, nurses notes. kb 18:10 Differential diagnosis: abnormal electrolytes, dehydration, arrhythmia, acute mi. kb Counseling: I had a detailed discussion with the patient and/or guardian regarding the historical points, exam findings, and any diagnostic results supporting the discharge/admit diagnosis, lab results, radiology results, the need for outpatient follow up, a family practitioner, to return to the emergency department if symptoms worsen or persist or if there are any questions or concerns that arise at home. Refusal of service: The patient/guardian displays adequate decision making capability and despite a detailed discussion of alternatives, benefits, risks, and consequences refuses: refuses to give urine sample for testing. 08/12 15:50 Order name: Basic Metabolic Panel; Complete Time: 16:35 kb 08/12 15:50 Order name: CBC with Diff; Complete Time: 16:21 kb 08/12 15:50 Order name: Troponin HS; Complete Time: 16:35 kb 08/12 15:50 Order name: XRAY Chest (1 view) kb 08/12 15:50 Order name: EKG - Nurse/Tech; Complete Time: 16:08 kb 08/12 15:50 Order name: IV Saline Lock; Complete Time: 16:01 kb 08/12 15:50 Order name: Labs collected and sent; Complete Time: 16:01 kb EC:09 Rate is 87 beats/min. Rhythm is regular. QRS [place] is Normal. MN interval is normal at kb 162 msec. QRS interval is normal at 102 msec. QT interval is normal at 442 msec. Administered Medications: 16:00 Drug: NS 0.9% IV 1000 ml IV at 1000 ml once; to be given as a bolus over 60 minutes bp Route: IV; Rate: 1000 ml; Site: right antecubital; 18:24 Follow up: IV Status: Completed infusion bp Disposition: 08/13 16:10 Co-signature as Attending Physician, Roger Davila MD I reviewed the patient's care rn provided by the Advanced Practice Provider and agree with the diagnosis and treatment plan. Disposition Summary: 08/12/24 18:12 Discharge Ordered Notes: Location: Home kb Condition: Stable kb Diagnosis - Chest pain, unspecified kb Followup: kb - With: Emergency Department - When: As needed - Reason: Worsening of condition Followup: kb - With: Private Physician - When: 2 - 3 days - Reason: Recheck today's complaints, Continuance of care, Re-evaluation by your physician Discharge Instructions: - Discharge Summary Sheet kb - Nonspecific Chest Pain, Adult, [id number] kb Forms: - Work release form kb - Medication Reconciliation Form kb - Antibiotic Education kb - Prescription Opioid Use kb - Patient Portal Instructions kb - Leadership Thank You Letter kb Signatures: Dispatcher [employer] EDMS Maryann Pisano, PROTECTIVE SIGNAL INSTALLER HELPER-C PROTECTIVE SIGNAL INSTALLER HELPER-Ignaciob Roger Davila MD MD rn Peltier, Brian RN RN Deedee Fraire RN RN ld1
--- NOTE | 2024-08-12 18:13 | ER ---
Nurse's Notes [facility] Name: Digna Gonzalez Age: 24 yrs Sex: Female : 2000 Arrival Date: 08/12/2024 Time: 15:42 Bed 20 Private MD: Diagnosis: Chest pain, unspecified Presentation: 08/12 15:51 Chief complaint: Patient states: Intermittent chest tightness began at 1300. ld1 Coronavirus screen: At this time, the client does not indicate any symptoms associated with coronavirus-19. Ebola Screen: No symptoms or risks identified at this time. Initial Sepsis Screen: Does the patient meet any 2 criteria? No. Patient's initial sepsis screen is negative. Does the patient have a suspected source of infection? No. Patient's initial sepsis screen is negative. Risk Assessment: Do you want to hurt yourself or someone else? Patient reports no desire to harm self or others. Onset of symptoms was August 12, 2024. 15:51 Method Of Arrival: Ambulatory ld1 15:51 Acuity: BALTAZAR 3 ld1 Triage Assessment: 15:52 General: Appears in no apparent distress. comfortable, Behavior is calm, cooperative, ld1 appropriate for age. Pain: Complains of pain in chest Pain does not radiate. Pain currently is 7 out of 10 on a pain scale. Quality of pain is described as throbbing, Pain began 3 hours ago. Is intermittent. EENT: No signs and/or symptoms were reported regarding the EENT system. Neuro: Level of Consciousness is awake, alert, obeys commands, Oriented to person, place, time, situation. Cardiovascular: Capillary refill < 3 seconds Patient's skin is warm and dry. Rhythm is sinus rhythm. Respiratory: Airway is patent Respiratory effort is even, unlabored. GI: Abdomen is flat, non-distended. : No signs and/or symptoms were reported regarding the genitourinary system. Derm: No signs and/or symptoms reported regarding the dermatologic system. Musculoskeletal: No signs and/or symptoms reported regarding the musculoskeletal system. Historical: - Allergies: 15:52 No Known Allergies; ld1 - Home Meds: 15:52 None [Active]; ld1 - PMHx: 15:52 None; ld1 - PSHx: 15:52 None; ld1 - Immunization history:: Adult Immunizations up to date. - Infectious Disease History:: Denies. - Social history:: Smoking status: Patient denies any tobacco usage or history of. Screenin:06 [facility] ED Fall Risk Assessment (Adult) History of falling in the last 3 months, bp including since admission No falls in past 3 months (0 pts) Confusion or Disorientation No (0 pts) Intoxicated or Sedated No (0 pts) Impaired Gait No (0 pts) Mobility Assist Device Used No (0 pt) Altered Elimination No (0 pt) Score/Fall Risk Level 0 - 2 = Low Risk Oriented to surroundings. Abuse screen: Denies threats or abuse. Denies injuries from another. Nutritional screening: No deficits noted. Tuberculosis screening: No symptoms or risk factors identified. Assessment: 15:50 General: Appears in no apparent distress. comfortable, Behavior is calm, cooperative, bp appropriate for age. 18:06 Reassessment: Patient appears in no apparent distress at this time. Patient is alert, bp oriented x 3, equal unlabored respirations, skin warm/dry/pink. Vital Signs: 15:51 BP 120 / 70; Pulse 88; Resp 18; Temp 97.3(TE); Pulse Ox 99% on R/A; Weight 57.15 kg; ld1 Height 5 ft. 7 in. ; Pain 10/10; 17:00 BP 125 / 69; Pulse 75; Resp 18; Pulse Ox 99% ; bp 18:24 BP 131 / 72; Pulse 79; Resp 16; Pulse Ox 99% ; bp 15:51 Body Mass Index 19.73 (57.15 kg, 170.18 cm) ld1 15:51 Pain Scale: Adult ld1 ED Course: 15:45 Patient arrived in ED. al6 15:45 Maryann Pisano FNP-C is PHCP. kb 15:45 Roger Davila MD is Attending Physician. kb 15:52 Triage completed. ld1 15:52 Arm band placed on right wrist. ld1 15:54 Eulogio Reza, RAS is Primary Nurse. bp 16:01 Initial lab(s) drawn, by me, sent to lab. Inserted saline lock: 22 gauge in right bp antecubital area, using aseptic technique. Blood collected. Flushed with 10 mL NS. 16:46 XRAY Chest (1 view) In Process Unspecified. EDMS 18:06 Patient has correct armband on for positive identification. Bed in low position. bp Provided Education on: na. Client placed on continuous cardiac and pulse oximetry monitoring. NIBP monitoring applied. 18:06 Patient maintains SpO2 saturation greater than 95% on room air. bp 18:24 No provider procedures requiring assistance completed. IV discontinued, intact, bp bleeding controlled, No redness/swelling at site. Pressure dressing applied. Administered Medications: 16:00 Drug: NS 0.9% IV 1000 ml IV at 1000 ml once; to be given as a bolus over 60 minutes bp Route: IV; Rate: 1000 ml; Site: right antecubital; 18:24 Follow up: IV Status: Completed infusion bp Medication: 18:25 VIS not applicable for this client. bp Outcome: 18:12 Discharge ordered by . kb 18:24 Discharged to home ambulatory, bp 18:24 Condition: stable 18:24 Discharge instructions given to patient, Instructed on discharge instructions, follow up and referral plans. Demonstrated understanding of instructions, follow-up care, 18:25 Patient left the ED. bp Signatures: Dispatcher [employer] EDMS Maryann Pisano, ANEL GONZALEZ-Eulogio Charlton, RN RN bp Deedee Cesar, RAS RN ld1 Rosario Saravia6
--- NOTE | 2024-08-12 18:43 | RAD REPORT ---
EXAMINATION: ONE VIEW CHEST XR CLINICAL INDICATION: Female, 24 years old.,CHEST PAIN TECHNIQUE: Frontal chest projection is submitted. Examination is limited by patient positioning and t echnique. COMPARISON: 02/17/2024 FINDINGS: The lungs are well inflated. Perihilar streaky opacities and bronchial wall prominence. No pneumotho rax or sizable effusion. The heart is normal in size. Mediastinal contours are unremarkable. IMPRESSION: Findings suggesting reactive airway changes or viral infection without evidence of focal pneumonia..
--- NOTE | 2024-08-13 11:46 | EKG ---
Test Date: 2024-08-12 Test Time: 16:06:12 Sap Abap Developer: IESHA MEASUREMENT RESULTS: Intervals: Rate: 87 NH: 162 QRSD: 102 QT: 368 QTc: 442 [place]: P: 50 NH: 162 QRS: 69 T: 41 INTERPRETIVE STATEMENTS: Normal sinus rhythm Incomplete right bundle branch block Nonspecific ST and T wave abnormality Abnormal ECG No previous ECG available for comparison Electronically Signed On 08-13-24 11:45:34 CDT by Todd Quiros
[2024-08-13 19:29] VITALS: TEMP 97.3; O2SAT 99
[2024-08-13 19:31] VITALS: BP 131/72
== END 2024-08-12 18:25 | disposition home or self-care (01) ==
LOC: ER 15:42
DX: O26.891 Other specified pregnancy related conditions, first trimester (principal); R07.9 Chest pain, unspecified; Z3A.10 10 weeks gestation of pregnancy
CPT/HCPCS: 96361; 93005; 85025; 80048; 36415; 84484; 71045; 96360; 99284; J7030

== ENCOUNTER 2024-08-27 21:45 | Emergency (ER) | payer OTHER ==
--- OUTSIDE RECORDS SUMMARY | 2024-08-27 21:49 | XMS REPORT | Continuity of Care Document ---
Author Name Unknown Address [address] [address] [place] [address] [facility] Address [address] [facility] 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 Name Role Phone Kisha Lincoln Primary Care Physician STEPHY WIGGINS Attending Clinician Unavailable STEPHY WIGGINS Attending Clinician Unavailable KISHA WILKS Attending Clinician Unavailable KISHA WILKS Attending Clinician Unavailable KAMLESH CARLISLE Attending Clinician Unavailable Kisha Wilks MD Attending Clinician [phone] TATA ANGELES Attending Clinician Unavailab TATA Singh Attending Clinician Unavailab Tata Singh DO Attending Clinician [phone] Lab, Ang - Db Attending Clinician Unavailable Doctor Unassigned, [place] Attending Clinician U Stephy Storm MD Attending Clinician [phone] Ena Galan PA-C Attending Clinician ENA GALAN Attending Clinician Unavailable Hodan Mabry RN Attending Clinician Unavailobi e Nurse, [facility] Attending Clinician Un available Payers Payer Name Policy Type Policy Number Effective Date Expirati on Date Source [facility] [id number] 2024 00:00:00 [facility] [id number] 2020 00:00:00 Problems Condition Name Condition Details Condition Category Status Onset Date Resolution Date Last Treatment Date Treating Clinician Comments Source Encounter for supervisio n of normal first in first trimester Encounter for supervisio n of normal first in first trimester Disease Active 08-06 00:00: 00 [facility] 9 weeks gestation of 9 weeks gestation of Disease Active 08-06 00:00: 00 [facility] Well woman exam (no gynecologi vanessa exam) Well woman exam (no gynecologi vanessa exam) Disease Resolve d 10-15 00:00: 00 2024-08-06 00:00:00 2024-08-06 15:23:54 [facility] Nexplanon in place Nexplanon in place Disease Resolve d 10-15 00:00: 00 2023-12-06 00:00:00 2023-12-06 10:15:10 [facility] Allergies, Adverse Reactions, Alerts Allergy Name Allergy Type Status Severity Reaction(s) Onset Date Inactive Date Treating Clinician Comments Source NO KNOWN ALLERGIE S Drug Class Active [facility] Social History Social Habit Start Date Stop Date Quantity Comments Source ASSERTION 2024-06-14 00:00:00 [facility] Gender identity [facility] History of tobacco use Passive smoker [facility] Alcoholic beverage intake 2024-08-21 00:00:00 2024-08-21 00:00:00 Lifetime non-drinker (finding) [facility] Alcohol Comment 2022-11-28 00:00:00 2022-11-28 00:00:00 quit [facility] Alcohol intake 2022-11-28 00:00:00 2022-11-28 00:00:00 Lifetime non-drinker (finding) [facility] Exposure to SARS-CoV-2 (event) 2022-06-23 00:00:00 2022-07-03 11:46:00 Not sure [facility] Tobacco use and exposure 2021-11-22 00:00:00 2021-11-22 00:00:00 Smokeless tobacco non-user [facility] History of Social function 2021-11-22 00:00:00 2021-11-22 00:00:00 [facility] Sex assigned at 2002 00:00:00 2000 00:00:00 [facility] Smoking Status Start Date Stop Date Source Never smoked tobacco [facility] Medications Ordered Medication Name Filled Medication Name Start Date Stop Date Current Medication? Ordering Clinician Indication Dosage Frequency Signature (SIG) Comments Components Source terconazole 0.4 % vaginal cream 08-21 00:00: 00 Yes [id number] 1{appli cator} Insert 1 Applicator into vagina at bedtime. Use for 7 nights [facility] NaCl 0.9% (NS) bolus infusion 1,000 mL 08-15 04:45: 00 08-15 05:24 :00 No 1000mL at 999 mL/hr, 1,000 mL, IV Infusion, ONCE, 1 dose, On Mon08/14/24 at 2345, SONDRA [facility] metroNIDAZO LE (FLAGYL) 500 mg tablet 12-01 00:00: 00 12-09 04:59 :00 No [id number] 500mg Take 1 tablet by mouth in the morning and 1 tablet in the evening. Do all this for 7 days. [facility] metroNIDAZO LE 500 mg tablet 07-05 00:00: 00 12-05 00:00 :00 No [id number] 500mg Take 1 tablet by mouth every 12 (twelve) hours. [facility] fluconazole 150 mg tablet 07-05 00:00: 00 07-06 04:59 :00 No [id number] 150mg Take 1 tablet by mouth once now for 1 dose. [facility] Dose Unknown 8-15 00:00: 00 No 500 Dose Unknown 8-15 00:00: 00 No 600 doxycycline hyclate 100 mg tablet 11-24 00:00: 00 07-04 00:00 :00 No [id number] 100mg Take 1 tablet by mouth in the morning and 1 tablet in the evening. [facility] Nexplanon 68 mg subdermal implant [...] Status Comments Source HPV9 2023-12-06 09:30:00 Completed [facility] SARS-COV-2 COVID 19 GLENNA SUCROSE VACCINE 12+, , 0.3 ML (30 MCG), IM PFIZER (PEREZ TOP) 2023-12-06 09:30:00 Completed [facility] HPV9 2023-05-31 00:00:00 Completed [facility] HPV9 2023-05-11 00:00:00 Completed [facility] HPV9 2022-07-05 00:00:00 Completed [facility] HPV9 2022-07-04 00:00:00 Completed [facility] HPV9 2022-05-25 00:00:00 Completed [facility] HPV9 2022-05-25 00:00:00 Completed [facility] HPV9 2022-05-25 00:00:00 Completed [facility] HPV9 2022-05-25 00:00:00 Completed [facility] HPV9 2022-05-25 00:00:00 Completed [facility] HPV9 2022-05-25 00:00:00 Completed [facility] HPV9 2022-05-25 00:00:00 Completed HPV9 2022-02-01 00:00:00 Completed [facility] HPV9 2022-01-26 00:00:00 Completed [facility] HPV9 2022-01-26 00:00:00 Completed [facility] HPV9 2022-01-26 00:00:00 Completed [facility] HPV9 2022-01-26 00:00:00 Completed [facility] HPV9 2022-01-26 00:00:00 Completed [facility] HPV9 2022-01-26 00:00:00 Completed [facility] HPV9 2022-01-26 00:00:00 Completed [facility] HPV9 2022-01-26 00:00:00 Completed [facility] HPV9 2022-01-26 00:00:00 Completed [facility] HPV9 2021-11-25 00:00:00 Completed [facility] HPV9 2021-11-24 00:00:00 Completed [facility] HPV9 2021-11-23 00:00:00 Completed [facility] HPV9 2021-11-22 00:00:00 Completed [facility] HPV9 2021-11-22 00:00:00 Completed [facility] HPV9 2021-11-22 00:00:00 Completed [facility] HPV9 2021-11-22 00:00:00 Completed [facility] HPV9 2021-11-22 00:00:00 Completed [facility] HPV9 2021-11-22 00:00:00 Completed [facility] HPV9 2021-11-22 00:00:00 Completed [facility] HPV9 2021-11-22 00:00:00 Completed [facility] HPV9 2021-11-22 00:00:00 Completed [facility] Vital Signs Vital Name Observation Time Observation Value Comments S ource Systolic blood pressure 2024-08-21 16:11:00 117 mm[Hg] [facility] Diastolic blood pressure 2024-08-21 16:11:00 69 mm[Hg] [facility] Heart rate 2024-08-21 16:11:00 100 /[facility] Res[facility] 2024-08-21 16:11:00 18 /min [facility] Body height 2024-08-21 16:11:00 170.2 cm Univ [facility] Body weight 2024-08-21 16:11:00 56.7 kg Univ [facility] BMI 2024-08-21 16:11:00 19.58 kg/m2 Univ [facility] Systolic blood pressure 2024-08-15 05:00:00 111 mm[Hg] [facility] Diastolic blood pressure 2024-08-15 05:00:00 73 mm[Hg] [facility] Heart rate 2024-08-15 05:00:00 90 /min Unive [facility] Body temperature 2024-08-15 05:00:00 36.67 Betty [facility] Respiratory rate 2024-08-15 05:00:00 18 /min [facility] Oxygen saturation in Arterial blood by Pulse oximetry 2024-08-15 05:00:00 100 /min [facility] Body height 2024-08-15 03:54:00 170.2 cm [facility] Body weight 2024-08-15 03:54:00 57.108 kg [facility] BMI 2024-08-15 03:54:00 19.72 kg/m2 [facility] Systolic blood pressure 2024-08-06 20:12:00 111 mm[Hg] [facility] Diastolic blood pressure 2024-08-06 20:12:00 71 mm[Hg] [facility] Heart rate 2024-08-06 20:12:00 83 /min Unive [facility] Body temperature 2024-08-06 20:12:00 36.72 Betty [facility] Respiratory rate 2024-08-06 20:12:00 18 /min [facility] Body height 2024-08-06 20:12:00 170.2 cm [facility] Body weight 2024-08-06 20:12:00 57.289 kg [facility] BMI 2024-08-06 20:12:00 19.78 kg/m2 [facility] Oxygen saturation in Arterial blood by Pulse oximetry 2024-08-06 20:12:00 99 /min [facility] Systolic blood pressure 2023-12-06 14:31:00 119 mm[Hg] [facility] Diastolic blood pressure 2023-12-06 14:31:00 76 mm[Hg] [facility] Heart rate 2023-12-06 14:31:00 75 /min [facility] Body temperature 2023-12-06 14:31:00 36.83 Betty [facility] Body height 2023-12-06 14:31:00 167.6 cm [facility] Body weight 2023-12-06 14:31:00 54.159 kg Univ [facility] BMI 2023-12-06 14:31:00 19.27 kg/m2 Univ [facility] Systolic blood pressure 2022-11-28 14:26:00 116 mm[Hg] [facility] Diastolic blood pressure 2022-11-28 14:26:00 79 mm[Hg] [facility] Heart rate 2022-11-28 14:26:00 71 /min Unive [facility] Body temperature 2022-11-28 14:26:00 36.67 Betty [facility] Body height 2022-11-28 14:26:00 167.6 cm Univ [facility] Body weight 2022-11-28 14:26:00 53.162 kg Univ [facility] BMI 2022-11-28 14:26:00 18.92 kg/m2 [facility] Systolic blood pressure 2022-07-04 14:52:00 117 mm[Hg] [facility] Diastolic blood pressure 2022-07-04 14:52:00 80 mm[Hg] [facility] Heart rate 2022-07-04 14:52:00 78 /min Unive [facility] Body temperature 2022-07-04 14:52:00 36.72 Betty [facility] Respiratory rate 2022-07-04 14:52:00 18 /min [facility] Body height 2022-07-04 14:52:00 167.6 cm [facility] Systolic blood pressure 2022-05-25 14:10:00 114 mm[Hg] [facility] Diastolic blood pressure 2022-05-25 14:10:00 72 mm[Hg] [facility] Heart rate 2022-05-25 14:10:00 70 /min Unive [facility] Body temperature 2022-05-25 14:10:00 36.78 Betty [facility] Body height 2022-05-25 14:10:00 167.6 cm Univ [facility] Body weight 2022-05-25 14:10:00 55.702 kg Univ [facility] BMI 2022-05-25 14:10:00 19.82 kg/m2 Univ [facility] Systolic blood pressure 2022-02-02 16:28:00 119 mm[Hg] [facility] Diastolic blood pressure 2022-02-02 16:28:00 80 mm[Hg] [facility] Heart rate 2022-02-02 16:28:00 70 /min Unive [facility] Body temperature 2022-02-02 16:28:00 36.72 Betty [facility] Respiratory rate 2022-02-02 16:28:00 18 /min [facility] Body height 2022-02-02 16:28:00 167.6 cm Univ [facility] Body weight 2022-02-02 16:28:00 59.784 kg Univ [facility] BMI 2022-02-02 16:28:00 21.27 kg/m2 Univ [facility] Systolic blood pressure 2022-01-26 18:42:00 112 mm[Hg] [facility] Diastolic blood pressure 2022-01-26 18:42:00 73 mm[Hg] [facility] Heart rate 2022-01-26 18:42:00 65 /min Unive [facility] Body temperature 2022-01-26 18:42:00 36.83 Betty [facility] Respiratory rate 2022-01-26 18:42:00 16 /min [facility] Body height 2022-01-26 18:42:00 167.6 cm Univ [facility] Body weight 2022-01-26 18:42:00 59.512 kg [facility] BMI 2022-01-26 18:42:00 21.18 kg/m2 [facility] BP Systolic 2021-10-12 11:33:00 126 [...] Date / Time Performed Performing Clinician Source EKG-12 LEAD 2024-08-15 05:10:54 Tata Angeles [facility] URINALYSIS 2024-08-15 04:25:00 Tata Angeles [facility] TROPONIN I 2024-08-15 04:23:00 Tata Angeles [facility] COMP. METABOLIC PANEL (34429) 2024-08-15 04:23:00 Tata Angeles [facility] CBC WITH DIFF 2024-08-15 04:23:00 [facility] 2024-08-06 20:49:02 [facility] OB TRANSVAGINAL 2024-08-06 20:48:58 Kisha Wilks [facility] POCT TEST 2024-08-06 20:19:00 Kisha Wilks [facility] POCT URINALYSIS W/O SPECIFIC GRAVITY 2024-08-06 20:17:00 AdKisha ling [facility] POCT URINALYSIS W/O SPECIFIC GRAVITY 2022-07-04 00:00:00 Ena Galan [facility] GARDASIL 9 (HPV 9V) VACCINE 2022-05-25 14:12:46 Stephy Wiggins [facility] GARDASIL 9 (HPV 9V) VACCINE 2022-01-26 18:59:55 Stephy Wiggins [facility] Plan of Care Planned Activity Planned Date Details Comments Source Goal Plan of Care Note [code = 61663-1] Goal Plan of Care Note [code = 36580-9] Goal Plan of Care Note [code = 78120-6] Goal Plan of Care Note [code = 69847-3] Goal Plan of Care Note [code = 90412-2] Goal Plan of Care Note [code = 92578-2] Goal Plan of Care Note [code = 29220-1] Goal Plan of Care Note [code = 26538-4] Goal Plan of Care Note [code = 26244-9] Goal Plan of Care Note [code = 06939-4] Goal Plan of Care Note [code = 84954-5] Goal Plan of Care Note [code = 54056-2] Goal Plan of Care Note [code = 90838-8] Goal Plan of Care Note [code = 44138-4] Goal Plan of Care Note [code = 81268-8] Goal Plan of Care Note [code = 23777-5] Goal Plan of Care Note [code = 70241-4] Goal Plan of Care Note [code = 58190-0] Goal Plan of Care Note [code = 45363-3] Goal Plan of Care Note [code = 32649-8] Goal Plan of Care Note [code = 72742-5] Goal Plan of Care Note [code = 66699-7] Goal Plan of Care Note [code = 44398-2] Goal Plan of Care Note [code = 21697-5] Goal Plan of Care Note [code = 55112-7] Goal Plan of Care Note [code = 72050-7] Goal Plan of Care Note [code = 83017-0] Goal Plan of Care Note [code = 49241-9] Goal Plan of Care Note [code = 12258-7] Goal Plan of Care Note [code = 73323-3] Goal Plan of Care Note [code = 65516-6] Goal Plan of Care Note [code = 02658-6] Goal Plan of Care Note [code = 65253-6] Goal Plan of Care Note [code = 58530-8] Goal Plan of Care Note [code = 99810-6] Goal Plan of Care Note [code = 88196-8] Goal Plan of Care Note [code = 75260-4] Goal Plan of Care Note [code = 83262-2] Encounters Start Date/Time End Date/Time Encounter Type Admission Type Attending Clinicians Care Facility Care Department Encounter ID Source 2024-09-03 11:00:00 2024-09-03 11:00:00 Outpatient KISHA CHICAS [facility] [id number] [facility] 2024-08-28 15:00:00 2024-08-28 15:00:00 Outpatient KAMLESH PAGE [facility] [id number] [facility] 2024-08-21 11:15:00 2024-08-21 11:26:50 Outpatient KISHA CHICAS [facility] [id number] [facility] 2024-08-21 11:15:00 2024-08-21 11:26:50 Routine Visit Kisha Wilks [facility] 1.840.114 350.1.13.10 4.2.7.2.686 [id number] 134 [id number] [facility] 2024-08-09 00:00:00 2024-08-15 08:25:45 Telephone AdKisha ling [facility] 1..840.114 350.1.13.10 4.2.7.2.686 [id number] 134 [id number] [facility] 2024-08-14 22:56:00 2024-08-15 00:24:00 Emergency X TATA ANGELES [facility] ERT [id number] [facility] 2024-08-14 22:56:00 2024-08-15 00:24:00 Emergency Tata Angeles [facility] 1.840.114 350.1.13.10 4.2.7.2.686 [id number] [facility] 2024-08-06 17:00:00 2024-08-06 17:15:00 Bobbin Doffer Visit Lab, Kisha Johnson, Sai Smith [facility] 1.840.114 350.1.13.10 4.2.7.2.686 [id number] [facility] 2024-08-06 14:30:00 2024-08-06 15:52:31 Outpatient R KISHA WILKS VIVIAN [facility] [id number] [facility] 2024-08-06 14:30:00 2024-08-06 15:52:31 Initial Visit Kisha Wilks [facility] 1.84.114 350.1.13.10 4.2.7.2.686 [id number] 134 [id number] [facility] 2023-12-20 00:00:00 2024-01-20 18:19:48 Patient Secure Msg Doctor Unassigned, [place] Doctor Unassigned, [place] [facility] 1.840.114 350.1.13.10 4.2.7.2.686 [id number] 134 [id number] [facility] 2023-12-06 09:30:00 2023-12-06 10:01:21 Outpatient R STEPHY WIGGINS VIEN [facility] [id number] [facility] 2023-12-06 09:30:00 2023-12-06 10:01:21 Office Visit Stephy Wiggins [facility] 1.840.114 350.1.13.10 4.2.7.2.686 [id number] 134 [id number] [facility] 2023-05-31 00:00:00 2023-05-31 00:00:00 [facility] 1.2.840.114 350.1.13.10 4.2.7.2.686 [id number] 134 [id number] [facility] 2023-05-16 08:30:00 2023-05-16 08:30:00 Outpatient R WIGGINS STEPHY [facility] [id number] [facility] 2023-05-11 00:00:00 2023-05-11 00:00:00 Patient Secure Msg Stephy Wiggins [facility] 1.2.840.114 350.1.13.10 4.2.7.2.686 [id number] 134 [id number] [facility] 2022-12-19 15:01:26 2022-12-19 15:01:[address] [facility] [id number] Higginbotham 2022-12-01 00:00:00 2022-12-01 00:00:00 Case Management tSephy Wiggins [facility] 1..840.114 350.1.13.10 4.2.7.2.686 [id number] 134 [id number] [facility] 2022-11-28 09:30:00 2022-11-28 09:38:27 Outpatient R IKE WIGGINSKARLOS WIGGINSIKEEN [facility] [id number] [facility] 2022-11-28 09:30:00 2022-11-28 09:38:27 Office Visit Stephy Wiggins [facility] 1..840.114 350.1.13.10 4.2.7.2.686 [id number] 134 [id number] [facility] 2022-07-06 00:00:00 2022-07-06 00:00:00 Patient Secure Msg Hodan Mabry [facility] 1..840.114 350.1.13.10 4.2.7.2.686 [id number] 134 [id number] [facility] 2022-07-05 00:00:00 2022-07-05 00:00:00 Case Management Ena Galan [facility] 1.2.840.114 350.1.13.10 4.2.7.2.686 [id number] [facility] 2022-07-05 00:00:00 2022-07-05 00:00:00 [facility] 1.2.840.114 350.1.13.10 4.2.7.2.686 [id number] 134 [id number] [facility] 2022-07-04 10:00:00 2022-07-04 10:53:46 Outpatient R [facility] [id number] [facility] 2022-07-04 10:00:00 2022-07-04 10:53:46 [facility] 1.2.840.114 350.1.13.10 4.2.7.2.686 [id number] [facility] 2022-07-04 00:00:00 2022-07-04 00:00:00 Patient Secure Msg Adama [facility] 1.2.840.114 350.1.13.10 4.2.7.2.686 [id number] 134 [id number] [facility] 2022-05-25 08:00:00 2022-05-25 08:15:00 Nurse Visit Nurse, [facility] Ena Galan [facility] 1.2.840.114 350.1.13.10 4.2.7.2.686 [id number] [facility] 2022-05-25 08:00:00 2022-05-25 08:00:00 Outpatient R ENA GALAN [facility] [id number] [facility] 2022-05-25 08:00:00 2022-05-25 08:00:00 Outpatient R [facility] [id number] [facility] 2022-02-02 13:00:00 2022-02-02 13:00:00 Office Visit Ena Galan [facility] 1.2.840.114 350.1.13.10 4.2.7.2.686 [id number] [facility] 2022-02-02 13:00:00 2022-02-02 11:48:47 [id number] 2022-02-01 00:00:00 2022-02-01 00:00:00 Patient Secure MsStephy Lopes Romulo [facility] 1.2.840.114 350.1.13.10 4.2.7.2.686 [id number] [facility] 2022-01-26 14:00:00 2022-01-26 14:00:00 Outpatient R ENA GALAN [facility] [id number] [facility] 2022-01-26 14:00:00 2022-01-26 14:00:00 Nurse Visit Nurse, [facility] Ena Galan [facility] 1.2.840.114 350.1.13.10 4.2.7.2.686 [id number] [facility] 2022-01-24 08:00:00 2022-01-24 08:00:00 Outpatient R [facility] [id number] [facility] 2021-11-29 00:00:00 2021-11-29 00:00:00 Outpatient Visit [id number] 2021-11-25 00:00:00 2021-11-25 00:00:00 Patient Secure Msg [facility]iggins [facility] 1.2.840.114 350.1.13.10 4.2.7.2.686 [id number] [facility] 2021-11-25 00:00:00 2021-11-25 00:00:00 Telephone Stephy Wiggins [facility] 1.2.840.114 350.1.13.10 4.2.7.2.686 [id number] [facility] 2021-11-24 00:00:00 2021-11-24 00:00:00 Patient Secure Msg Stephy Wiggins [facility] 1.2.840.114 350.1.13.10 4.2.7.2.686 [id number] [facility] 2021-11-24 00:00:00 2021-11-24 00:00:00 Case Management Ena Galan [facility] 1.2.840.114 350.1.13.10 4.2.7.2.686 [id number] 134 [id number] [facility] 2021-11-23 00:00:00 2021-11-23 00:00:00 Patient Secure Msg Stephy Wiggins [facility] 1.2.840.114 350.1.13.10 4.2.7.2.686 [id number] [facility] 2021-11-22 08:00:00 2021-11-22 09:06:55 Outpatient R STEPHY WIGGINS [facility] [id number] [facility] 2021-11-22 08:00:00 2021-11-22 09:06:55 Office Visit Stephy Wiggins [facility] 1.2.840.114 350.1.13.10 4.2.7.2.686 [id number] [facility] 2021-10-12 00:00:00 2021-10-12 00:00:00 Outpatient Visit [id number] 2021-01-20 14:16:03 2021-01-20 14:52:14 Office Visit Ena Galan Stephy Wiggins [facility] 1.2.840.114 350.1.13.10 4.2.7.2.686 [id number] [facility] 2021-01-20 14:30:00 2021-01-20 14:30:00 Outpatient R STEPHY WIGGINS [facility] [place] [id number] [facility] 2021-01-14 00:00:00 2021-01-14 00:00:00 Patient Secure Msg Stephy Wiggins [facility] [id number] [facility] 2020-10-15 13:30:00 2020-10-15 13:30:00 Outpatient R STEPHY WIGGINS [facility] [id number] [facility] Results Test Description Test Time Test Comments Results Result Co [facility] (61921)2024-08-15 04:54:23* Test Item Value Reference Range Interpretation Comme nts NA (test code = 2960950211) 133 mmol/L 135-145 L K (test code = 4287820215) 4.1 mmol/L 3.5-5.0 CL (test code = 7606100659) 102 mmol/L 98-108 CO2 TOTAL (test code = 8650914402) 23 mmol/L 23-31 AGAP (test code = 7824384033) 8 2-16 BUN (test code = 6393276637) 14 mg/dL 7-23 GLUCOSE (test code = 6978211227) 80 mg/dL 70-110 CREATININE (test code = 2160-0) 0.59 mg/dL 0.50-1.04 TOTAL BILI (test code = 5847606905) 0.3 mg/dL 0.1-1.1 CALCIUM (test code = 0673197704) 9.8 mg/dL 8.6-10.6 T PROTEIN (test code = 6680656855) 8.3 g/dL 6.3-8.2 H ALBUMIN (test code = 9474334811) 4.6 g/dL 3.5-5.0 ALK PHOS (test code = 2146040770) 42 U/L 34-122 ALTv (test code = 1742-6) 23 U/L 5-35 AST(SGOT) (test code = 7905524685) 23 U/L 13-40 eGFR (test code = 33811-4) 130.9 mL/min/1.73m2 CKD-EPI eGFR (2020). Assuming creatinine has been stable day-to-day for at least three months, the eGFR indicates Category G1 (>= 90 mL/min/1.73 m2) Lab Interpretation (test code = 22774-1) Abnormal [facility] WITH [id number] 04:39:58* Test Item Value Reference Range Interpretation Comme nts WBC (test code = 6690-2) 10.31 4.30-11.10 RBC (test code = 789-8) 3.74 3.93-5.25 L HGB (test code = 718-7) 11.3 g/dL 11.6-15.0 L HCT (test code = 4544-3) 33.4 % 35.7-45.2 L MCV (test code = 787-2) 89.3 fL 80.6-95.5 MCH (test code = 785-6) 30.2 pg 25.9-32.8 MCHC (test code = 786-4) 33.8 g/dL 31.6-35.1 RDW-SD (test code = 80954-4) 39.8 fL 39.0-49.9 RDW-CV (test code = 788-0) 12.2 % 12.0-15.5 PLT (test code = 777-3) 226 166-358 MPV (test code = 97068-1) 10.9 fL 9.5-12.9 NRBC/100 WBC (test code = 7267610063) 0 0.0-10.0 NRBC x10^3 (test code = 1882848438) See_Comment [Automated messa ge] The system which generated this result transmitted reference range: 10*3/?L. The reference range was not used to interpret this result as normal/abnormal. GRAN MAT (NEUT) % (test code = 770-8) 67.4 % IMM GRAN % (test code = 7575819766) 0.2 % LYMPH % (test code = 736-9) 21.7 % MONO % (test code = 5905-5) 8.7 % EOS % (test code = 713-8) 1.6 % BASO % (test code = 706-2) 0.4 % GRAN MAT x10^3(ANC) (test code = 6440227362) 6.94 10*3/uL 1.88-7.09 IMM GRAN x10^3 (test code = 2410011664) 0.00-0.06 LYMPH x10^3 (test code = 731-0) 2.24 10*3/uL 1.32-3.29 MONO x10^3 (test code = 742-7) 0.9 10*3/uL 0.33-0.92 EOS x10^3 (test code = 711-2) 0.17 10*3/uL 0.03-0.39 BASO x10^3 (test code = 704-7) 0.04 10*3/uL 0.01-0.07 Lab Interpretation (test code = 64095-1) [id number] 20:19:00* Test Item Value Reference Range Interpretation Comme nts POCT PREG (test code = 1605) Positive On board controls acceptable with C Line (test code = 3574) Yes POCT PREG LOT # (test code = 3575) POCT PREG TEST DATE ( test code = 3576) [facility] Urinalysis w/o Specific [id number] 20:17:00* Test Item Value Reference Range Interpretation [...] = 3257) na Negative - Negati ve [facility] URINALYSIS W/O SPECIFIC [id number] 15:16:00* Test Item Value Reference Range Interpretation [...] = 3257) neg Negative - Negati ve [facility] URINALYSIS W/O SPECIFIC [id number] 15:16:00* Test Item Value Reference Range Interpretation [...] = 3257) neg Negative - Negati ve [facility] Notes Date/Time Note Provider Source 2024-08-21 11:15:00 Age: [age] year old GA: 11w5d Here for problem visit See Progress note Kisha Wilks MD [facility] 2024-08-15 00:23:16 Pt given printed and verbal discharge instructions regarding chest pain. Pt verbalized understanding of instructions, pt awake alert oriented, resp reg unlabored, skin w/d, color appropriate for race, moves all ext well, pt encouraged to follow up with pcp. Advised to seek medical attention for new/prolonged/worsening of symptoms. No adverse reaction to meds given in ER noted upon discharge. PIV d'cd, dressing to site, catheter in tact. Awake, alert oriented, resp reg unlabored, skin w/d, pt leaving amb with steady gait, in no apparent distress. [facility] 2024-08-14 22:51:51 CC: Nausea, hot flashes, light flashes, and chest discomfort multiple episodes. Same symptoms occurred on Monday. 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 She reports it lasted about 10 minutes and then self resolved. She reports she had similar episodes like this yesterday. No shortness of breath. No cough, congestion or fever. No medication taken prior to arrival. She is currently and follows with [facility] here at [facility]. No vaginal bleeding or discharge. No abdominal pain or cramping. She does not smoke. No history of asthma or high blood pressure or diabetes. No dysuria or hematuria. Here for evaluation. Past Medical History/Immunizations: History reviewed. No pertinent past medical history. Tetanus received in last 5 years: No Allergies: No Known Allergies Past Social History: Tobacco Use Never smoked or used smokeless tobacco. Passive Exposure: Never Vaping Use Never used Alcohol Use Never. Comments: quit Drug Use Never. Sexual Activity Sexually active; Partners: Male; Control/Protection: None. Past Surgical History: History reviewed. No pertinent surgical history. Review of Systems: Review of Systems Constitutional: Negative for chills and fever. Respiratory: Negative for cough and shortness of breath. Cardiovascular: Positive for chest pain. Gastrointestinal: Negative for abdominal pain and vomiting. Genitourinary: Negative for dysuria. Musculoskeletal: Negative for arthralgias, neck pain and neck stiffness. Skin: Negative for wound. Neurological: Negative for dizziness. Psychiatric/Behavioral: Negative for agitation. Endocrine: Negative for goiter. Physical Exam: ED Triage Vitals [08/14/24 2254] Weight 57.1 kg (125 lb 14.4 oz) Actual or estimated Actual Height 1.702 m (5' 7") BP 126/84 Pulse 101 Resp 18 Temp 36.8 ?C (98.2 ?F) Temp source Oral SpO2 100 % Measured on Room air Physical Exam Vitals and nursing note reviewed. Constitutional: Appearance: Normal appearance. She is normal weight. HENT: Head: Normocephalic and atraumatic. Mouth/Throat: Mouth: Mucous membranes are dry. Cardiovascular: Rate and Rhythm: Normal rate and regular rhythm. Pulses: Normal pulses. Pulmonary: Effort: Pulmonary effort is normal. No respiratory distress. Breath sounds: No stridor. No wheezing or rhonchi. Chest: Chest wall: No tenderness. Abdominal: General: There is no distension. Palpations: Abdomen is soft. Tenderness: There is no abdominal tenderness. Musculoskeletal: General: Normal range of motion. Cervical back: Normal range of motion and neck supple. Skin: General: Skin is warm and dry. Neurological: General: No focal deficit present. Mental Status: She is alert and oriented to person, place, and time. Radiology: No orders to display Lab Results: Lab Results URINALYSIS - Abnormal Result Value Ref Range APPEARANCE Slightly Cloudy (*) Clear COLOR Yellow Yellow PH 6.0 4.8 - 8.0 SP GRAVITY 1.025 1.003 - 1.030 GLU U QUAL Normal Normal BLOOD Negative Negative KETONES Negative Negative PROTEIN Negative Negative UROBILIN 2.0 mg/dL (*) Normal BILIRUBIN Negative Negative NITRITE Negative Negative LEUK PERFECTO Negative Negative RBC/HPF 3 0 - 3 HPF WBC/HPF 12 (*) 0 - 5 HPF BACTERIA Few (*) Negative MUCOUS Slight (*) Negative LPF AMORPHOUS Rare Rare HPF SQ EPITH 4 HPF Ictotest Negative CBC WITH DIFF - Abnormal WBC 10.31 4.30 - 11.10 10*3/?L RBC 3.74 (*) 3.93 - 5.25 10*6/?L HGB 11.3 (*) 11.6 - 15.0 g/dL HCT 33.4 (*) 35.7 - 45.2 % MCV 89.3 80.6 - 95.5 fL MCH 30.2 25.9 - 32.8 pg MCHC 33.8 31.6 - 35.1 g/dL RDW-SD 39.8 39.0 - 49.9 fL RDW-CV 12.2 12.0 - 15.5 % PLT 226 166 - 358 10*3/?L MPV 10.9 9.5 - 12.9 fL NRBC/100 WBC 0.0 0.0 - 10.0 /100 WBCs NRBC x10 3 <0.01 10*3/?L GRAN MAT (NEUT) % 67.4 % IMM GRAN % 0.20 % LYMPH % 21.7 % MONO % 8.7 % EOS % 1.6 % BASO % 0.4 % GRAN MAT x10 3 (ANC) 6.94 1.88 - 7.09 10*3/uL IMM GRAN x10 3 <0.03 0.00 - 0.06 10*3/uL LYMPH x10 3 2.24 1.32 - 3.29 10*3/uL MONO x10 3 0.90 0.33 - 0.92 10*3/uL EOS x10 3 0.17 0.03 - 0.39 10*3/uL BASO x10 3 0.04 0.01 - 0.07 10*3/uL COMP. METABOLIC PANEL (55829) - Abnormal NA 133 (*) 135 - 145 mmol/L K 4.1 3.5 - 5.0 mmol/L CL 102 98 - 108 mmol/L CO2 TOTAL 23 23 - 31 mmol/L AGAP 8 2 - 16 BUN 14 7 - 23 mg/dL GLUCOSE 80 70 - 110 mg/dL CREATININE 0.59 0.50 - 1.04 mg/dL TOTAL BILI 0.3 0.1 - 1.1 mg/dL CALCIUM 9.8 8.6 - 10.6 mg/dL T PROTEIN 8.3 (*) 6.3 - 8.2 g/dL ALBUMIN 4.6 3.5 - 5.0 g/dL ALK PHOS 42 34 - 122 U/L ALTv 23 5 - 35 U/L AST(SGOT) 23 13 - 40 U/L eGFR 130.9 mL/min/1.73m2 TROPONIN I - Normal TROPONIN I 0.001 <=0.034 ng/mL EKG: If EKG completed, see Procedure Note. Orders and Treatments: Orders Placed This Encounter Procedures URINALYSIS CBC WITH DIFF COMP. METABOLIC PANEL (98059) TROPONIN I Orders Placed This Encounter Medications NaCl 0.9% (NS) bolus infusion 1,000 mL First Provider Eval: ED Events Date/Time Event User Comments 08/14/242246 Medical Screening Begins TATA ANGELES DO -- 08/14/242246 First Provider Evaluation TATA ANGELES DO -- ED COURSE Diagnosis/Impression as of 08/15/24 0010 Chest pain, unspecified type Procedures: EKG-12 Lead ROUTINE ONCE Date/Time: 08/15/2024 12:00 AM Performed by: Tata Angeles DO Authorized by: Tata Angeles DO ECG interpreted by ED Physician in the absence of a inside sales representative: yes Interpretation: Interpretation: normal Rate: ECG rate: 79 ECG rate assessment: normal Rhythm: Rhythm: sinus rhythm Ectopy: Ectopy: none QRS: QRS axis: Normal QRS intervals: Normal QRS conduction: normal ST segments: ST segments: Normal T waves: T waves: normal Q waves: Abnormal Q-waves: not present MDM: Medical Decision Making The patient presents from home for evaluation for an episode of chest pain that occurred around 9 PM this evening when she got off of work. She reports it lasted about 10 minutes and then self resolved. She reports she had similar episodes like this yesterday. No shortness of breath. No cough, congestion or fever. No medication taken prior to arrival. She is currently and follows with [facility] here at [facility]. No vaginal bleeding or discharge. No abdominal pain or cramping. She does not smoke. No history of asthma or high blood pressure or diabetes. No dysuria or hematuria. Vital signs are stable in the ER. Her heart is regular rhythm. Her lungs are clear bilaterally. She has no anterior chest wall tenderness with palpation. She does have dry mucous membranes. Will obtain an EKG. Will give the patient IV fluids and check laboratory studies as well as a urinalysis. Anticipate discharge home later. 0010 -the patient is doing well here in the ER. She has had no recurrent episodes of her chest pain. She has had no abnormal rhythms while on telemetry. Her laboratory studies are unremarkable including a normal troponin. Her urinalysis shows a high specific gravity of 1.025 but no evidence of infection. She remained stable here in the ER and is okay for discharge home with PCP follow-up. Problems Addressed: Chest pain, unspecified type: acute illness or injury Amount and/or Complexity of Data Reviewed Labs: ordered. Decision-making details documented in ED Course. ECG/medicine tests: ordered and independent interpretation performed. Decision-making details documented in ED Course. Risk Prescription drug management. Flowsheet Documentation: Scoring Tools: No data recorded Disposition/Condition: ED Disposition ED Disposition Discharge Condition Stable Comment -- Discharge Medications: Patient's Medications No medications on file Follow-up: Electronically signed by: Tata Angeles DO 08/15/24 0010 [facility] 2024-08-14 14:37:28 Spoke to pt. Carlota Isaac RN [facility] 2024-08-14 14:25:53 Digna Calvo is a 24 year old female ob patient 10wks called state she is experiencing light headedness, dizziness, nausea and over heated. Asking for a call back to discuss recommendation. Paloma Harrison [facility] 2024-08-09 14:12:54 LM on for pt to return call. Provider has not reviewed results. CARLOTA ISAAC RN 08/09/2024 2:13 PM [facility] 2024-08-09 12:42:19 Pt calling to check about the lab results. Kusum Anderson [facility] 2024-08-06 17:00:00 Images from the original note were not included. Venipuncture collection performed by clean technique on the right anticubitus. Total of 1 attempts were made. Slight pressure and a bandage/dressing were applied to the site(s). The patient experienced no complications. The following specimens were processed according to instructions and sent to [facility] laboratories per lab order on TODAY: LT [...] Aptima tube Other urine Urine drug screen [facility] 2024-08-06 14:30:00 Age: [age] year old GA: 9w4d New OB Visit Digna Calvo is a 24 year old at 9w4d by an scan at [facility] presents for Initial OB visit today.She has no concerns today Denies vaginal bleeding, abdominal pain or cramps. She reports some nausea especially with taking her PNV Work at a [employer]. She is in a stable relationship and [...] schedule and that I deliver here at [facility]. I discussed that I have two partners, Dr. Wiggins and Dr. Caceres and that they may deliver her or take care of her during her . I discussed that at [facility] we do not have a NICU, and that high risk pregnancies or deliveries less than 36 weeks will be transferred to [place]. All questions were answered. NOB labs today precautions reviewed Encouraged to call if have any additional questions or concerns. Plan: POCT Test, POCT Urinalysis w/o Specific [place], Workup, Blood Bank, Hcv Antibody, Urine Culture, HIV 1/2 Ag-Ab with Reflex, Rubella Screen IgG, ADC or [place] Only - Rpr, VZV Antibody Screen, Hepatitis [...] copy. Kisha Wilks MD 08/06/2024 5:53 PM [facility] 2023-05-15 09:36:22 Returned pt call to assist in scheduling. Sooner appointment provided. Pt's insurance is no longer active. Pt will call back after she speaks with insurance company to schedule an appointment. INA Lubin [facility]
[2024-08-27] MEDS ORDERED: NA CHLORIDE 0.9% 1,000 ML ONE (22:07)
--- NOTE | 2024-08-27 22:24 | RAD REPORT ---
EXAM: OB Limited HISTORY: abdominal cramps COMPARISON: 08/02/2024 TECHNIQUE: Multiple grayscale and color Doppler images were obtained in a transabdominal pelvic ultra sound. Spectral analysis of the Doppler waveforms of the ovaries were performed. FINDINGS: UTERUS: Single IUP identified. The fetus is in breech position. The placenta is posterior. The femur length is 1 cm which is consistent with 12 weeks 6 day with KYLIE of 03/05/2025. The cervix is closed measuring 4 cm. heart rate measured at 151 bpm. No free fluid is seen in the pelvis. RIGHT OVARY: Right ovary not visualized. LEFT OVARY: Left ovary not visualized. IMPRESSION: Single live intrauterine with estimated age of 12 weeks 6 days.
[2024-08-27 22:49] LABS: Urine Bacteria <20 /HPF (<20); Urine Bilirubin NEGATIVE (Negative); Urine Blood Negative (Negative); Urine Clarity Turbid (Clear); Urine Color Light-Yellow (Yellow); Urine Culture Reflex Order NOT NEEDED; Urine Glucose NEGATIVE (Negative); Urine Ketones 1+ (Negative); Urine Microscopic Reflex YN ORDER UMIC; Urine Mucus Slight /HPF (None Seen); Urine Nitrite NEGATIVE (Negative); Urine Protein NEGATIVE (Negative); Urine RBC None Seen /HPF (None Seen); Urine Urobilinogen Normal (Normal); Urine WBC <5 /HPF (<5)
--- NOTE | 2024-08-27 22:56 | ER ---
Nurse's Notes [facility] Name: Digna Gonzalez Age: 24 yrs Sex: Female : 2000 Arrival Date: 08/27/2024 Time: 21:45 Bed 7 Private MD: Diagnosis: 12 weeks gestation of Presentation: 08/27 22:01 Chief complaint: Patient states: I have been having cramping for three days. but it bm8 seem to only happen at work, and now I am feeling better. 22:01 Coronavirus screen: At this time, the client does not indicate any symptoms associated bm8 with coronavirus-19. Ebola Screen: Patient negative for fever greater than or equal to 101.5 degrees Fahrenheit, and additional compatible Ebola Virus Disease symptoms Patient denies exposure to infectious person. Patient denies travel to an Ebola-affected area in the 21 days before illness onset. No symptoms or risks identified at this time. Initial Sepsis Screen: Does the patient meet any 2 criteria? No. Patient's initial sepsis screen is negative. Does the patient have a suspected source of infection? No. Patient's initial sepsis screen is negative. Risk Assessment: Do you want to hurt yourself or someone else? Patient reports no desire to harm self or others. Onset of symptoms was August 24, 2024. 22:01 Method Of Arrival: Ambulatory bm8 22:01 Acuity: BALTAZAR 3 bm8 Triage Assessment: 22:01 General: Appears in no apparent distress. comfortable, Behavior is calm, cooperative, bm8 appropriate for age. Pain: Complains of pain in right upper quadrant and right lower quadrant Pain currently is 1 out of 10 on a pain scale. EENT: No deficits noted. No signs and/or symptoms were reported regarding the EENT system. Cardiovascular: No deficits noted. Capillary refill < 3 seconds in bilateral fingers Patient's skin is warm and dry. Respiratory: Airway is patent Respiratory effort is even, unlabored, Respiratory pattern is regular, symmetrical, Breath sounds are clear. 22:01 GI: Abdomen is flat, non-distended, Bowel sounds present X 4 quads. Abd is soft and non bm8 tender X 4 quads. : No signs and/or symptoms were reported regarding the genitourinary system. Urine is cloudy. Derm: No signs and/or symptoms reported regarding the dermatologic system. Musculoskeletal: No signs and/or symptoms reported regarding the musculoskeletal system. [employer]: 22:01 LMP 05/25/2024, unknown bm8 Historical: - Allergies: 22: No Known Allergies; bm8 - Home Meds: 22:27 None [Active]; bm8 - PMHx: 22:27 None; bm8 - PSHx: 22:27 None; bm8 - Immunization history:: Adult Immunizations up to date. - Infectious Disease History:: Denies. - Social history:: Smoking status: Patient denies any tobacco usage or history of. Screenin:29 [facility] ED Fall Risk Assessment (Adult) History of falling in the last 3 months, bm8 including since admission No falls in past 3 months (0 pts) Confusion or Disorientation No (0 pts) Intoxicated or Sedated No (0 pts) Impaired Gait No (0 pts) Mobility Assist Device Used No (0 pt) Altered Elimination No (0 pt) Score/Fall Risk Level 0 - 2 = Low Risk Oriented to surroundings, Maintained a safe environment, Educated pt \T\ family on fall prevention, incl call for assistance when getting out of bed, Assessed \T\ reinforced patient's understanding of fall precautions, Hourly rounding (assess needs \T\ fall precautionary measures) done, Used ambulatory aids as needed (educated on \T\ assisted with), Used gait belt as appropriate. Abuse screen: Denies threats or abuse. Nutritional screening: No deficits noted. Tuberculosis screening: No symptoms or risk factors identified. Assessment: 22:29 Reassessment: see triage assessment. bm8 Vital Signs: 22:17 BP 113 / 86; Pulse 91; Resp 17; Temp 98.2; Pulse Ox 100% on R/A; Weight 52.16 kg; vk Height 5 ft. 7 in. ; 23:10 BP 103 / 64; Pulse 83; Resp 20; Pulse Ox 99% ; jj7 22:17 Body Mass Index 18.01 (52.16 kg, 170.18 cm) vk [place] Coma Score: 22:29 Eye Response: spontaneous(4). Motor Response: obeys commands(6). Verbal Response: bm8 oriented(5). Total: 15. ED Course: 21:47 Patient arrived in ED. mr 21:49 Maryann Pisano [facility]-C [facility]. kb 21:49 Ruddy Leslie MD is Attending Physician. kb 22:01 Arm band placed on right wrist. bm8 22:09 Fran Davenport, RN is Primary Nurse. bm8 22:12 US OB Limited In Process Unspecified. EDMS 22:27 Triage completed. bm8 22:29 Patient has correct armband on for positive identification. Placed in gown. Bed in low bm8 position. Call light in reach. Side rails up X 1. Client placed on continuous cardiac and pulse oximetry monitoring. NIBP monitoring applied. Pulse ox on. NIBP on. Door closed. Noise minimized. Head of bed elevated. 22:29 No provider procedures requiring assistance completed. Urine collected: clean catch bm8 specimen, cloudy. Patient did not have IV access during this emergency room visit. pt declined IV or Blood work, provider is aware. Administered Medications: 22:25 Not Given (Patient Refused): ns 0.9% 1000 ml IV at 1 bolus Per protocol; to be given as bm8 a bolus over 60 minutes Medication: 22:29 VIS not applicable for this client. bm8 Outcome: 22:55 Discharge ordered by . kb 23:10 Discharged to home ambulatory, jjMicki 23:10 Condition: good 23:10 Discharge instructions given to patient, Instructed on discharge instructions, follow up and referral plans. Demonstrated understanding of instructions, follow-up care, 23:13 Patient left the ED. [email or web address] Signatures: Dispatcher [employer] EDND Maryann Pisano, RN HOSPICE-C RN HOSPICE-CkCarly Fuentes, Reg Reg mr CrossKatelyn RN RN jjKisha Soto Brad, RN RN bm8
--- NOTE | 2024-08-27 22:56 | EDPHYS ---
Physician Documentation [facility] Name: Digna Gonzalez Age: 24 yrs Sex: Female : 2000 Arrival Date: 08/27/2024 Time: 21:45 Bed 7 Private MD: ED Physician Ruddy Leslie HPI: 08/27 22:32 This 24 yrs old Black Female presents to ER via Ambulatory with complaints of 12wks kb , Abdominal Cramping. 22:32 Pt is a 24 year old female who presents for lower abd cramps that started 3 days ago. kb States the cramps were the worst this morning, but have almost resolved now. Denies vomiting, diarrhea, fever, urinary symptoms, vaginal bleeding/discharge. LMP 05/25/24. 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 - Infectious Disease History:: Denies. - Social history:: Smoking status: Patient denies any tobacco usage or history of. ROS: 22:32 Constitutional: As per HPI kb Exam: 22:32 Constitutional: This is a well developed, well nourished patient who is awake, alert, kb and in no acute distress. Head/Face: Normocephalic, atraumatic. ENT: Moist Mucous membranes Cardiovascular: Regular rate Respiratory: Respirations even and unlabored. No increased work of breathing. Talking in full sentences Abdomen/GI: Soft, non-tender. No distention Skin: Warm, dry with normal turgor. Normal color. MS/ Extremity: Pulses equal, no cyanosis. Neurovascular intact. Full, normal range of motion. Neuro: Awake and alert, GCS 15, oriented to person, place, time, and situation. Vital Signs: 22:17 BP 113 / 86; Pulse 91; Resp 17; Temp 98.2; Pulse Ox 100% on R/A; Weight 52.16 kg; vk Height 5 ft. 7 in. ; 23:10 BP 103 / 64; Pulse 83; Resp 20; Pulse Ox 99% ; jj7 22:17 Body Mass Index 18.01 (52.16 kg, 170.18 cm) vk Paty Coma Score: 22:29 Eye Response: spontaneous(4). Motor Response: obeys commands(6). Verbal Response: bm8 oriented(5). Total: 15. MDM: 21:49 Medical Screening Exam initiated kb 22:34 Data reviewed: vital signs, nurses notes. kb 22:55 Differential diagnosis: threatened , uti. Test considered but Not performed: kb Labs: cbc, cmp, hcg considered but pt has had no bleeding, urine and US wnl. Counseling: I had a detailed discussion with the patient and/or guardian regarding the historical points, exam findings, and any diagnostic results supporting the discharge/admit diagnosis, lab results, radiology results, the need for outpatient follow up, an OB/Gyne specialist, to return to the emergency department if symptoms worsen or persist or if there are any questions or concerns that arise at home. 08/27 21:50 Order name: Test, Urine; Complete Time: 22:48 kb 08/27 21:50 Order name: UA Rfx Cleve Cult if indicated; Complete Time: 22:53 kb 08/27 21:50 Order name: US OB Limited; Complete Time: 22:29 sp4 08/27 21:49 Order name: Labs collected and sent; Complete Time: 22:25 sp4 08/27 21:50 Order name: Labs collected and sent; Complete Time: 22:25 kb 08/27 21:50 Order name: NPO; Complete Time: 22:25 kb Administered Medications: 22:25 Not Given (Patient Refused): ns 0.9% 1000 ml IV at 1 bolus Per protocol; to be given as bm8 a bolus over 60 minutes Disposition: 08/28 04:36 Co-signature as Attending Physician, Ruddy Leslie MD I agree with the assessment sp4 and plan of care. I reviewed the patient's care provided by the Advanced Practice Provider and agree with the diagnosis and treatment plan. Disposition Summary: 08/27/24 22:55 Discharge Ordered Notes: Location: Home kb Condition: Stable kb Diagnosis - 12 weeks gestation of kb Followup: kb - With: Emergency Department - When: As needed - Reason: Worsening of condition Followup: kb - With: Private Physician - When: 2 - 3 days - Reason: Recheck today's complaints, Continuance of care, Re-evaluation by your physician Discharge Instructions: - Discharge Summary Sheet kb - Abdominal Pain During kb Forms: - Medication Reconciliation Form kb - Antibiotic Education kb - Prescription Opioid Use kb - Patient Portal Instructions kb - Leadership Thank You Letter kb Signatures: Dispatcher [employer] EDMaryann Cuadra, TUBING SUPERVISOR-C TUBING SUPERVISOR-Ruddy Rowley MD MD sp4 Fran Davenport, RN RN bm8 Corrections: (The following items were deleted from the chart) 08/27 21:50 21:50 ABO/RH TYPING+BB.LAB.BRZ ordered. EDMS EDMS 21:50 21:50 BASIC METABOLIC PANEL+C.LAB.BRZ ordered. EDMS EDMS 21:50 21:50 CBC+H.LAB.BRZ ordered. EDMS EDMS 21:50 21:50 Test, Urine+UC.LAB.BRZ ordered. EDMS EDMS 21:50 21:50 QUANTITATIVE HCG+C.LAB.BRZ ordered. EDMS EDMS 21:50 21:50 UA Rfx Cleve Cult if indicated+U.LAB.BRZ ordered. EDMS EDMS 21:50 21:50 Transvaginal Ob+US.RAD.BRZ ordered. EDMS EDMS 21:50 21:50 OB Limited+US.RAD.BRZ ordered. EDMS EDMS 22:25 21:49 IV Saline Lock ordered. sp4 bm8 22:25 21:50 IV Saline Lock ordered. kb bm8 22:34 22:32 Pt is a 24 year old female who presents for lower abd cramps that started 3 days kb ago. States the cramps were the worst this morning, but have almost resolved now. Denies vomiting, diarrhea, fever, urinary symptoms, vaginal bleeding/discharge.. kb
[2024-08-27 23:28] VITALS: TEMP 98.2
[2024-08-27 23:29] VITALS: BP 103/64; O2SAT 99
== END 2024-08-27 23:13 | disposition home or self-care (01) ==
LOC: ER 21:45
DX: O26.891 Other specified pregnancy related conditions, first trimester (principal); Z3A.12 12 weeks gestation of pregnancy
CPT/HCPCS: 81001; 81025; 76815; 99283; J7030

== ENCOUNTER 2025-01-04 19:15 | Emergency (ER) | payer OTHER ==
--- OUTSIDE RECORDS SUMMARY | 2025-01-04 19:22 | XMS REPORT | Continuity of Care Document ---
Author Name Unknown Address [address] [facility] [address] [place] [address] [facility] Address [address] [facility] [address] [place] [address] Care Team Providers [facility] [employer] Name Role Phone Kisha Lincoln Primary Care Physician [phone] KISHA WILKS Attending Clinician Unavailable KISHA WILKS Attending Clinician Unavailable Kisha Wilks MD Attending Clinician [phone] Morris SANTOYO, Becca Attending Clinician + [phone] Nurse, [facility] Attending Clinician UnaEly Ferrell Attending Clinician [phone] Radha Antonio MD Attending Clinician + STEPHY WIGGINS Attending Clinician Unavailable STEPHY WIGGINS Attending Clinician Unavailable Maggie Sol Attending Clinician + [phone] Doctor Unassigned, [place] Attending Clinician U SHYLA Fermin Attending Clinician Unavailable SHYLA BARAHONA Attending Clinician Unavailable Ultrasound, Ang-Mfm Attending Clinician UnavailShyla Chakraborty MD Attending Clinician [phone] Jf Becerra MD Attending Clinician [phone] Fabi Hoffmann NP Attending Clinician [phone] Unknown, Attending Attending Clinician Unavailab MAGGIE Chavira Attending Clinician Unavailab JF Zavala Attending Clinician Unavailable Lab, Ang - Db Attending Clinician Unavailable TATA ANGELES Attending Clinician Unavailab TATA Singh Attending Clinician Unavailab Stephy Mcrae MD Attending Clinician Miriam Galan PA-C Attending Clinician MIRIAM GALAN Attending Clinician Unavailable Clotilde MCGINNIS, Shyla Attending Clinician Unavailobi e Nurse, [facility] Attending Clinician Un available ADANIYAH, KISHA Sandy Admitting Clinician Unavailable JF BECERRA Admitting Clinician Unavailable Payers Payer Name Policy Type Policy Number Effective Date Expirati on Date Source [facility] [id number] 2024 00:00:00 [facility] [id number] 2024 00:00:00 [facility] [id number] 2020 00:00:00 Problems Condition Name Condition Details Condition Category Status Onset Date Resolution Date Last Treatment Date Treating Clinician Comments Source Decreased movements in second trimester, single or unspecifie d fetus Decreased movements in second trimester, single or unspecifie d fetus Disease Active 9-07 00:00: 00 [facility] Dizziness and giddiness Dizziness and giddiness Disease Active 5-14 00:00: 00 [facility] Chest pain, unspecifie d type Chest pain, unspecifie d type Disease Active 5-14 00:00: 00 [facility] Encounter for supervisio n of normal first in first trimester Encounter for supervisio n of normal first in first trimester Disease Active -22 00:00: 00 [facility] 9 weeks gestation of 9 weeks gestation of Disease Active -22 00:00: 00 [facility] Well woman exam (no gynecologi vanessa exam) Well woman exam (no gynecologi vanessa exam) Disease Resolve d 10-15 00:00: 00 2024-08-06 00:00:00 2024-08-06 15:23:54 [facility] Nexplanon in place Nexplanon in place Disease Resolve d 7- 00:00: 00 2023-12-06 00:00:00 2023-12-06 10:15:10 [facility] Allergies, Adverse Reactions, Alerts Allergy Name Allergy Type Status Severity Reaction(s) Onset Date Inactive Date Treating Clinician Comments Source NO KNOWN ALLERGIE S Drug Class Active [facility] Social History Social Habit Start Date Stop Date Quantity Comments Source ASSERTION 2024-06-14 00:00:00 [facility] History of tobacco use Passive smoker [facility] Alcoholic beverage intake 2024-11-26 00:00:00 2024-11-26 00:00:00 Lifetime non-drinker (finding) [facility] History of Social function 2024-10-02 00:00:00 2024-10-02 00:00:00 [facility] Alcohol Comment 2022-11-28 00:00:00 2022-11-28 00:00:00 quit [facility] Alcohol intake 2022-11-28 00:00:00 2022-11-28 00:00:00 Lifetime non-drinker (finding) [facility] Exposure to SARS-CoV-2 (event) 2022-06-23 00:00:00 2022-07-03 11:46:00 Not sure [facility] Tobacco use and exposure 2021-11-22 00:00:00 2021-11-22 00:00:00 Smokeless tobacco non-user [facility] Sex assigned at 2002 00:00:00 2000 00:00:00 [facility] Smoking Status Start Date Stop Date Source Never smoked tobacco [facility] Medications Ordered Medication Name Filled Medication Name Start Date Stop Date Current Medication? Ordering Clinician Indication Dosage Frequency Signature (SIG) Comments Components Source acetaminoph en (TYLENOL) tablet 650 mg acetaminoph en (TYLENOL) tablet 650 mg 12-22 02:30: 00 12-22 01:34 :00 Yes 650mg 650 mg, Oral, ONCE NOW, 1 dose, On 12/21/24 at 2130, Routine [facility] hydrOXYzine 10 mg tablet 12-12 00:00: 00 Yes [id number] 10mg Take 1 tablet by mouth every 6 hours as needed for Anxiety. [facility] fluconazole (DIFLUCAN) 150 mg tablet 8-12 00:00: 00 11-27 04:59 :00 Yes [id number] 150mg Take 1 tablet by mouth once now for 1 dose. [facility] PNV 67-iron ps-folate no.1-dha (VITAFOL ULTRA) 29 mg iron- 1 mg-200 mg Cap 10-29 00:00: 00 Yes [id number] 1{capsu le} Take 1 capsule by mouth in the morning. [facility] nirmatrelvi r-ritonavir 300 mg (150 mg x 2)-100 mg tablet 10-14 00:00: 00 12-10 00:00 :00 No [id number] 3{tbl} Take 3 tablets by mouth in the morning and 3 tablets in the evening. [facility] ondansetron 4 mg disintegrat ing tablet 10-14 00:00: 00 12-10 00:00 :00 No [id number] 4mg Take 1 tablet by mouth every 8 hours as needed for Nausea and Vomiting (N/V). [facility] metroNIDAZO LE 500 mg tablet 10-03 00:00: 00 10-11 04:59 :00 No [id number] 500mg Take 1 tablet by mouth in the morning and 1 tablet in the evening. Do all this for 7 days. [facility] cephALEXin 500 mg capsule 10-02 00:00: 00 10-10 04:59 :00 No [id number] 500mg Take 1 capsule by mouth in the morning and 1 capsule in the evening. Do all this for 7 days. [facility] ferrous sulfate (IRON ORAL) 10-01 12:28: 30 12-10 00:00 :00 No 1{tbl} Take by mouth. [facility] terconazole 0.4 % vaginal cream 07 00:00: 00 09-03 00:00 :00 No [id number] 1{appli cator} Insert 1 Applicator into vagina at bedtime. Use for 7 nights [facility] NaCl 0.9% (NS) bolus infusion 1,000 mL 08-15 04:45: 00 08-15 05:24 :00 No 1000mL at 999 mL/hr, 1,000 mL, IV Infusion, ONCE, 1 dose, On Mon08/14/24 at 2345, SONDRA [facility] metroNIDAZO LE (FLAGYL) 500 mg tablet 17 00:00: 00 12-09 04:59 :00 No [id number] 500mg Take 1 tablet by mouth in the morning and 1 tablet in the evening. Do all this for 7 days. [facility] metroNIDAZO LE 500 mg tablet 07-05 00:00: 00 12-05 00:00 :00 No [id number] 500mg Take 1 tablet by mouth every 12 (twelve) hours. [facility] fluconazole 150 mg tablet 07-05 00:00: 00 07-06 04:59 :00 No [id number] 150mg Take 1 tablet by mouth once now for 1 dose. [facility] Dose Unknown 8-15 00:00: 00 No 500 Dose Unknown 15 00:00: 00 No 600 doxycycline hyclate 100 mg tablet 8-10 00:00: 00 07-04 00:00 :00 No [id number] 100mg Take 1 tablet by mouth in the morning and 1 tablet in the evening. [facility] Nexplanon 68 mg subdermal implant 10-12 00:00: 00 No 1mg Dose Unknown 10-12 00:00: 00 No TAKE 1 TABLET BY MOUTH EVERY 6 HOURS NEEDED FOR PAIN 0 10-12 00:00: 00 No TAKE 1 TABLET BY MOUTH EVERY 6 HOURS NEEDED FOR PAIN 0 10-08 00:00: 00 No Dose Unknown 0 6-24 00:00: 00 No TAKE 1 TABLET BY MOUTH EVERY 6 HOURS NEEDED FOR PAIN 20210-05 00:00: 00 No TAKE 1 CAPSULE BY MOUTH THREE TIMES DAILY 10-05 00:00: 00 No amoxicillin 875 mg tablet 06-26 00:00: 00 No 1mg ibuprofen 600 mg tablet 2018-0420 00:00: 00 No 1mg Nexplanon 68 mg subdermal implant 10-01 00:00: 00 No 1mg Immunizations Ordered Immunization Name Filled Immunization Name Date Status Comments Source HPV9 2023-12-06 09:30:00 Completed [facility] SARS-COV-2 COVID 19 GLENNA SUCROSE VACCINE 12+, , 0.3 ML (30 MCG), IM PFIZER (PEREZ TOP) 2023-12-06 09:30:00 Completed [facility] HPV9 2023-05-31 00:00:00 Completed [facility] HPV9 2023-05-11 00:00:00 Completed [facility] HPV9 2022-07-05 00:00:00 Completed [facility] HPV9 2022-07-04 00:00:00 Completed [facility] HPV9 2022-05-25 00:00:00 Completed [facility] HPV9 2022-05-25 00:00:00 Completed [facility] HPV9 2022-05-25 00:00:00 Completed [facility] HPV9 2022-05-25 00:00:00 Completed [facility] HPV9 2022-05-25 00:00:00 Completed [facility] HPV9 2022-05-25 00:00:00 Completed [facility] HPV9 2022-05-25 00:00:00 Completed HPV9 2022-02-01 00:00:00 Completed [facility] HPV9 2022-01-26 00:00:00 Completed [facility] HPV9 2022-01-26 00:00:00 Completed [facility] HPV9 2022-01-26 00:00:00 Completed [facility] HPV9 2022-01-26 00:00:00 Completed [facility] HPV9 2022-01-26 00:00:00 Completed [facility] HPV9 2022-01-26 00:00:00 Completed [facility] HPV9 2022-01-26 00:00:00 Completed [facility] HPV9 2022-01-26 00:00:00 Completed [facility] HPV9 2022-01-26 00:00:00 Completed [facility] HPV9 2021-11-25 00:00:00 Completed [facility] HPV9 2021-11-24 00:00:00 Completed [facility] HPV9 2021-11-23 00:00:00 Completed [facility] HPV9 2021-11-22 00:00:00 Completed [facility] HPV9 2021-11-22 00:00:00 Completed [facility] HPV9 2021-11-22 00:00:00 Completed [facility] HPV9 2021-11-22 00:00:00 Completed [facility] HPV9 2021-11-22 00:00:00 Completed [facility] 2021-11-22 00:00:00 Completed [facility] HPV9 2021-11-22 00:00:00 Completed [facility] HPV9 2021-11-22 00:00:00 Completed [facility] HPV9 2021-11-22 00:00:00 Completed [facility] Vital Signs Vital Name Observation Time Observation Value Comments S ource Systolic blood pressure 2024-12-27 14:59:00 105 mm[Hg] [facility] Diastolic blood pressure 2024-12-27 14:59:00 72 mm[Hg] [facility] Heart rate 2024-12-27 14:59:00 82 /min [facility] Body temperature 2024-12-27 14:59:00 36.72 Betty [facility] Respiratory rate 2024-12-27 14:59:00 18 /min [facility] Body height 2024-12-27 14:59:00 167.6 cm [facility] Body weight 2024-12-27 14:59:00 66.225 kg [facility] BMI 2024-12-27 14:59:00 23.57 kg/m2 [facility] Systolic blood pressure 2024-12-22 00:48:00 105 mm[Hg] [facility] Diastolic blood pressure 2024-12-22 00:48:00 58 mm[Hg] [facility] Heart rate 2024-12-22 00:48:00 83 /min [facility] Body temperature 2024-12-22 00:48:00 37 Betty [facility] Respiratory rate 2024-12-22 00:48:00 18 /min [facility] Oxygen saturation in Arterial blood by Pulse oximetry 2024-12-22 00:48:00 100 /min [facility] Body height 2024-12-22 00:09:00 167.6 cm [facility] Body weight 2024-12-22 00:09:00 66.271 kg [facility] BMI 2024-12-22 00:09:00 23.58 kg/m2 [facility] Systolic blood pressure 2024-12-18 21:14:00 116 mm[Hg] [facility] Diastolic blood pressure 2024-12-18 21:14:00 73 mm[Hg] [facility] Heart rate 2024-12-18 21:14:00 80 /min [facility] Respiratory rate 2024-12-18 21:14:00 18 /min [facility] Body weight 2024-12-18 21:14:00 65.318 kg [facility] BMI 2024-12-18 21:14:00 23.24 kg/m2 [facility] Systolic blood pressure 2024-12-15 20:40:00 122 mm[Hg] [facility] Diastolic blood pressure 2024-12-15 20:40:00 73 mm[Hg] [facility] Heart rate 2024-12-15 20:40:00 95 /min [facility] Body temperature 2024-12-15 20:40:00 36.39 Betty [facility] Respiratory rate 2024-12-15 20:40:00 20 /min [facility] Oxygen saturation in Arterial blood by Pulse oximetry 2024-12-15 20:40:00 100 /min [facility] Systolic blood pressure 2024-12-12 22:45:00 105 mm[Hg] [facility] Diastolic blood pressure 2024-12-12 22:45:00 70 mm[Hg] [facility] Heart rate 2024-12-12 22:45:00 80 /min [facility] Body temperature 2024-12-12 22:45:00 37 Betty [facility] Respiratory rate 2024-12-12 22:45:00 16 /min [facility] Oxygen saturation in Arterial blood by Pulse oximetry 2024-12-12 22:45:00 99 /min [facility] Body height 2024-12-12 19:17:00 167.6 cm [facility] Body weight 2024-12-12 19:17:00 64.411 kg [facility] BMI 2024-12-12 19:17:00 22.92 kg/m2 [facility] Systolic blood pressure 2024-12-10 19:50:00 115 mm[Hg] [facility] Diastolic blood pressure 2024-12-10 19:50:00 73 mm[Hg] [facility] Heart rate 2024-12-10 19:50:00 96 /min [facility] Body temperature 2024-12-10 19:50:00 36.72 Betty [facility] Respiratory rate 2024-12-10 19:50:00 18 /min [facility] Body height 2024-12-10 19:50:00 167.6 cm [facility] Body weight 2024-12-10 19:50:00 64.547 kg [facility] BMI 2024-12-10 19:50:00 22.97 kg/m2 [facility] Oxygen saturation in Arterial blood by Pulse oximetry 2024-12-10 19:50:00 99 /min [facility] Systolic blood pressure 2024-11-26 21:05:00 118 mm[Hg] [facility] Diastolic blood pressure 2024-11-26 21:05:00 79 mm[Hg] [facility] Heart rate 2024-11-26 21:05:00 94 /min [facility] Body temperature 2024-11-26 21:05:00 36.72 Betty [facility] Respiratory rate 2024-11-26 21:05:00 18 /min [facility] Body height 2024-11-26 21:05:00 167.6 cm [facility] Body weight 2024-11-26 21:05:00 64.592 kg [facility] BMI 2024-11-26 21:05:00 22.98 kg/m2 [facility] Oxygen saturation in Arterial blood by Pulse oximetry 2024-11-26 21:05:00 94 /min [facility] Systolic blood pressure 2024-10-29 12:51:00 112 mm[Hg] [facility] Diastolic blood pressure 2024-10-29 12:51:00 74 mm[Hg] [facility] Heart rate 2024-10-29 12:51:00 82 /min [facility] Respiratory rate 2024-10-29 12:51:00 18 /min [facility] Body height 2024-10-29 12:51:00 167.6 cm [facility] Body weight 2024-10-29 12:51:00 61.689 kg [facility] BMI 2024-10-29 12:51:00 21.95 kg/m2 [facility] Systolic blood pressure 2024-10-15 00:12:00 114 mm[Hg] [facility] Diastolic blood pressure 2024-10-15 00:12:00 77 mm[Hg] [facility] Heart rate 2024-10-15 00:12:00 93 /min [facility] Body temperature 2024-10-15 00:12:00 36.44 Betty [facility] Respiratory rate 2024-10-15 00:12:00 18 /min [facility] Body height 2024-10-15 00:12:00 167.6 cm [facility] Body weight 2024-10-15 00:12:00 60.782 kg [facility] BMI 2024-10-15 00:12:00 21.63 kg/m2 [facility] Oxygen saturation in Arterial blood by Pulse oximetry 2024-10-15 00:12:00 100 /min [facility] Systolic blood pressure 2024-10-02 21:45:00 116 mm[Hg] [facility] Diastolic blood pressure 2024-10-02 21:45:00 75 mm[Hg] [facility] Heart rate 2024-10-02 21:45:00 83 /min [facility] Body temperature 2024-10-02 21:45:00 36.44 Betty [facility] Body height 2024-10-02 21:45:00 167.6 cm [facility] Body weight 2024-10-02 21:45:00 58.786 kg [facility] BMI 2024-10-02 21:45:00 20.92 kg/m2 [facility] Oxygen saturation in Arterial blood by Pulse oximetry 2024-10-02 21:45:00 100 /min [facility] Systolic blood pressure 2024-10-01 16:42:00 105 mm[Hg] [facility] Diastolic blood pressure 2024-10-01 16:42:00 68 mm[Hg] [facility] Heart rate 2024-10-01 16:42:00 75 /min [facility] Body temperature 2024-10-01 16:42:00 36.72 Betty [facility] Body height 2024-10-01 16:42:00 167.6 cm [facility] Body weight 2024-10-01 16:42:00 58.514 kg [facility] BMI 2024-10-01 16:42:00 20.82 kg/m2 [facility] Systolic blood pressure 2024-09-03 16:32:00 113 mm[Hg] [facility] Diastolic blood pressure 2024-09-03 16:32:00 69 mm[Hg] [facility] Heart rate 2024-09-03 16:32:00 79 /min [facility] Body temperature 2024-09-03 16:32:00 36.72 Betty [facility] Respiratory rate 2024-09-03 16:32:00 18 /min [facility] Body height 2024-09-03 16:32:00 170.2 cm [facility] Body weight 2024-09-03 16:32:00 57.244 [facility] BMI 2024-09-03 16:32:00 19.77 kg/m2 [facility] Oxygen saturation in Arterial blood by Pulse oximetry 2024-09-03 16:32:00 99 /min [facility] Systolic blood pressure 2024-08-28 20:09:00 97 mm[Hg] [facility] Diastolic blood pressure 2024-08-28 20:09:00 66 mm[Hg] [facility] Heart rate 2024-08-28 20:09:00 88 /min [facility] Respiratory rate 2024-08-28 20:09:00 16 /min [facility] Body height 2024-08-28 20:09:00 170.2 cm [facility] Body weight 2024-08-28 20:09:00 56.7 kg [facility] BMI 2024-08-28 20:09:00 19.58 kg/m2 [facility] Oxygen saturation in Arterial blood by Pulse oximetry 2024-08-28 20:09:00 100 /min [facility] Systolic blood pressure 2024-08-21 16:11:00 117 mm[Hg] [facility] Diastolic blood pressure 2024-08-21 16:11:00 69 mm[Hg] [facility] Heart rate 2024-08-21 16:11:00 100 /[facility] Res[facility] 2024-08-21 16:11:00 18 /min [facility] Body height 2024-08-21 16:11:00 170.2 cm [facility] Body weight 2024-08-21 16:11:00 56.7 kg [facility] BMI 2024-08-21 16:11:00 19.58 kg/m2 [facility] Systolic blood pressure 2024-08-15 05:00:00 111 mm[Hg] [facility] Diastolic blood pressure 2024-08-15 05:00:00 73 mm[Hg] [facility] Heart rate 2024-08-15 05:00:00 90 /min [facility] Body temperature 2024-08-15 05:00:00 36.67 Betty [facility] Respiratory rate 2024-08-15 05:00:00 18 /min [facility] Oxygen saturation in Arterial blood by Pulse oximetry 2024-08-15 05:00:00 100 /min [facility] Body height 2024-08-15 03:54:00 170.2 cm [facility] Body weight 2024-08-15 03:54:00 57.108 kg [facility] BMI 2024-08-15 03:54:00 19.72 kg/m2 [facility] Systolic blood pressure 2024-08-06 20:12:00 111 mm[Hg] [facility] Diastolic blood pressure 2024-08-06 20:12:00 71 mm[Hg] [facility] Heart rate 2024-08-06 20:12:00 83 /min [facility] Body temperature 2024-08-06 20:12:00 36.72 Betty [facility] Respiratory rate 2024-08-06 20:12:00 18 /min [facility] Body height 2024-08-06 20:12:00 170.2 cm [facility] Body weight 2024-08-06 20:12:00 57.289 kg [facility] BMI 2024-08-06 20:12:00 19.78 kg/m2 [facility] Oxygen saturation in Arterial blood by Pulse oximetry 2024-08-06 20:12:00 99 /min [facility] Systolic blood pressure 2023-12-06 14:31:00 119 mm[Hg] [facility] Diastolic blood pressure 2023-12-06 14:31:00 76 mm[Hg] [facility] Heart rate 2023-12-06 14:31:00 75 /min [facility] Body temperature 2023-12-06 14:31:00 36.83 Betty [facility] Body height 2023-12-06 14:31:00 167.6 [facility] Body weight 2023-12-06 14:31:00 54.159 [facility] BMI 2023-12-06 14:31:00 19.27 kg/m2 [facility] Systolic blood pressure 2022-11-28 14:26:00 116 mm[Hg] [facility] Diastolic blood pressure 2022-11-28 14:26:00 79 mm[Hg] [facility] Heart rate 2022-11-28 14:26:00 71 /min [facility] Body temperature 2022-11-28 14:26:00 36.67 Betty [facility] Body height 2022-11-28 14:26:00 167.6 cm [facility] Body weight 2022-11-28 14:26:00 53.162 kg [facility] BMI 2022-11-28 14:26:00 18.92 kg/m2 [facility] Systolic blood pressure 2022-07-04 14:52:00 117 mm[Hg] [facility] Diastolic blood pressure 2022-07-04 14:52:00 80 mm[Hg] [facility] Heart rate 2022-07-04 14:52:00 78 /min [facility] Body temperature 2022-07-04 14:52:00 36.72 Betty [facility] Respiratory rate 2022-07-04 14:52:00 18 /min [facility] Body height 2022-07-04 14:52:00 167.6 cm [facility] Systolic blood pressure 2022-05-25 14:10:00 114 mm[Hg] [facility] Diastolic blood pressure 2022-05-25 14:10:00 72 mm[Hg] [facility] Heart rate 2022-05-25 14:10:00 70 /min [facility] Body temperature 2022-05-25 14:10:00 36.78 Betty [facility] Body height 2022-05-25 14:10:00 167.6 cm [facility] weight 2022-05-25 14:10:00 55.702 kg [facility] BMI 2022-05-25 14:10:00 19.82 kg/m2 [facility] Systolic blood pressure 2022-02-02 16:28:00 119 mm[Hg] [facility] Diastolic blood pressure 2022-02-02 16:28:00 80 mm[Hg] [facility] Heart rate 2022-02-02 16:28:00 70 /min [facility] Body temperature 2022-02-02 16:28:00 36.72 Betty [facility] Respiratory rate 2022-02-02 16:28:00 18 /min [facility] Body height 2022-02-02 16:28:00 167.6 cm [facility] Body weight 2022-02-02 16:28:00 59.784 kg [facility] BMI 2022-02-02 16:28:00 21.27 kg/m2 [facility] Systolic blood pressure 2022-01-26 18:42:00 112 mm[Hg] [facility] Diastolic blood pressure 2022-01-26 18:42:00 73 mm[Hg] [facility] Heart rate 2022-01-26 18:42:00 65 /min [facility] Body temperature 2022-01-26 18:42:00 36.83 Betty [facility] Respiratory rate 2022-01-26 18:42:00 16 /min [facility] Body height 2022-01-26 18:42:00 167.6 cm [facility] Body weight 2022-01-26 18:42:00 59.512 kg [facility] BMI 2022-01-26 18:42:00 21.18 kg/m2 [facility] BP Systolic 2021-10-12 11:33:00 126 mm[Hg] BP [...] /min Respiratory Rate 2019-03-25 13:49:00 17.00 /min Heart Rate 2019-03-06 16:59:00 85.00 /min Respiratory Rate 2019-03-06 16:59:00 16.00 /min BP Systolic 2019-03-06 16:59:00 113 mm[Hg] BP Diastolic 2019-03-06 16:59:00 80 mm[Hg] Weight Measured 2019-03-06 16:59:00 133.40 pounds Height Measured 2019-03-06 16:59:00 65.00 inches Body Temperature 2019-03-06 16:59:00 98.30 degrees BP Systolic 2018-10-01 10:09:00 102 mm[Hg] BP [...] Date / Time Performed Performing Clinician Source POCT URINALYSIS W/O SPECIFIC GRAVITY 2024-12-27 00:00:00 AdKisha ling [facility] URINALYSIS 2024-12-12 20:56:00 Radha Antonio [facility] HB ECG ROUTINE & RHYTHM STRIP 2024-12-12 19:31:44 Radha Antonio [facility] TROPONIN I 2024-12-12 19:28:00 Radha Antonio [facility] COMP. METABOLIC PANEL (86650) 2024-12-12 19:28:00 Radha Antonio [facility] CBC WITH DIFF 2024-12-12 19:28:00 Radha Antonio [facility] N-TERMINAL PRO-BNP 2024-12-12 19:28:00 Radha Moser [facility] HB ECG ROUTINE & RHYTHM STRIP 2024-12-12 19:16:47 Radha Antonio [facility] POCT URINALYSIS W/O SPECIFIC GRAVITY 2024-12-10 19:52:00 AdumKisha [facility] POCT URINALYSIS W/O SPECIFIC GRAVITY 2024-11-26 21:08:00 Adum, Kisha Sandy [facility] SECOND AND THIRD TRIMESTER ULTRASOUND 2024-11-08 16:28:00 AdKisha ling [facility] POCT URINALYSIS W/O SPECIFIC GRAVITY 2024-10-29 00:00:00 Adum, Kisha Vika [facility] DME/SUPPLY JUSTIFICATION 2024-10-28 16:15:04 Doc tor Unassigned, Gilberts [facility] DME/SUPPLY JUSTIFICATION 2024-10-16 16:53:48 Doc tor Unassigned, Gilberts [facility] POCT MOLECULAR FLU 2024-10-15 00:31:00 Mami Hoffmann ra [facility] POCT MOLECULAR COVID 2024-10-15 00:25:00 Hiram Hoffmann [facility] POCT MOLECULAR STREP 2024-10-15 00:18:00 Unknown, Marina lopez [facility] POCT URINALYSIS 2024-10-02 00:00:00 Maggie Johnson [facility] POCT URINALYSIS W/O SPECIFIC GRAVITY 2024-10-01 16:45:00 Adum, Kisha Vika [facility] DME/SUPPLY JUSTIFICATION 2024-09-24 16:25:43 Doc brian Unassigned, Gilberts [facility] TRANSTHORACIC ECHO (TTE) COMPLETE 2024-09-12 13:34:06 Jf Becerra [facility] POCT URINALYSIS W/O SPECIFIC GRAVITY 2024-09-03 16:33:00 Adum, Kisha Sandy [facility] EKG-12 LEAD 2024-08-15 05:10:54 [facility]ata Angeles [facility] 2024-08-15 04:25:00 Tata Angeles [facility] TROPONIN I 2024-08-15 04:23:00 Tata Angeles Un [facility] COMP. METABOLIC PANEL (62282) 2024-08-15 04:23:00 Tata Angeles [facility] CBC WITH DIFF 2024-08-15 04:23:00 [facility]ata [facility] TRANSVAGINAL 2024-08-06 20:49:02 AdKisha ling [facility] US OB TRANSVAGINAL 2024-08-06 20:48:58 Adum, Kisha L [facility] POCT TEST 2024-08-06 20:19:00 Adum, Kisha Sandy [facility] POCT URINALYSIS W/O SPECIFIC GRAVITY 2024-08-06 20:17:00 AdumKisha [facility] POCT URINALYSIS W/O SPECIFIC GRAVITY 2022-07-04 00:00:00 Miriam Galan [facility] GARDASIL 9 (HPV 9V) VACCINE 2022-05-25 14:12:46 Stephy Wiggins [facility] GARDASIL 9 (HPV 9V) VACCINE 2022-01-26 18:59:55 Stephy Wiggins [facility] Plan of Care Planned Activity Planned Date Details Comments Source Goal Plan of Care Note [code = 09263-3] Goal Plan of Care Note [code = 05945-2] Goal Plan of Care Note [code = 67631-4] Goal Plan of Care Note [code = 54970-2] Goal Plan of Care Note [code = 18547-0] Goal Plan of Care Note [code = 98773-9] Goal Plan of Care Note [code = 83267-5] Goal Plan of Care Note [code = 60064-6] Goal Plan of Care Note [code = 08700-8] Goal Plan of Care Note [code = 31533-0] Goal Plan of Care Note [code = 47025-8] Goal Plan of Care Note [code = 97727-1] Goal Plan of Care Note [code = 71065-5] Goal Plan of Care Note [code = 01921-1] Goal Plan of Care Note [code = 85436-7] Goal Plan of Care Note [code = 97271-8] Goal Plan of Care Note [code = 70643-4] Goal Plan of Care Note [code = 38999-0] Goal Plan of Care Note [code = 97880-2] Goal Plan of Care Note [code = 50844-0] Goal Plan of Care Note [code = 48206-7] Goal Plan of Care Note [code = 29280-2] Goal Plan of Care Note [code = 02554-7] Goal Plan of Care Note [code = 48025-0] Goal Plan of Care Note [code = 33244-5] Goal Plan of Care Note [code = 28040-5] Goal Plan of Care Note [code = 86263-5] Goal Plan of Care Note [code = 00786-7] Goal Plan of Care Note [code = 74417-6] Goal Plan of Care Note [code = 88687-9] Goal Plan of Care Note [code = 46476-1] Goal Plan of Care Note [code = 19277-5] Goal Plan of Care Note [code = 05297-9] Goal Plan of Care Note [code = 57961-5] Goal Plan of Care Note [code = 33516-0] Goal Plan of Care Note [code = 48365-0] Goal Plan of Care Note [code = 23730-4] Goal Plan of Care Note [code = 33213-7] Encounters Start Date/Time End Date/Time Encounter Type Admission Type Attending Clinicians [facility] Facility Care Department Encounter ID Source 2024-12-04 00:00:00 2025-01-04 18:21:45 Patient Secure Msg Kisha Wilks [facility] 1.0.114 350.1.13.10 4.2.7.2.686 [id number] 134 [id number] [facility] 2024-12-04 00:00:00 2025-01-04 18:20:15 Patient Secure Msg Kisha Wilks [facility] 1.0.114 350.1.13.10 4.2.7.2.686 [id number] 134 [id number] [facility] 2024-11-27 00:00:00 2024-12-28 18:46:22 Patient Secure Msg Becca Norton [facility] .0.114 350.1.13.10 4.2.7.2.686 [id number] [id number] [facility] 2024-12-27 09:45:00 2024-12-27 10:22:50 Routine Visit R Kisha Wilks [facility] 1.840.114 350.1.13.10 4.2.7.2.686 [id number] 134 [id number] [facility] 2024-12-25 00:00:00 2024-12-26 14:17:05 Patient Secure Kisha Rader [facility] 1.2.840.114 350.1.13.10 4.2.7.2.686 [id number] 134 [id number] [facility] 2024-12-21 19:15:00 2024-12-21 21:57:00 Emergency X KISHA WILKS [facility] [id number] [facility] 2024-12-18 16:15:00 2024-12-18 16:28:10 Routine Visit R Kisha Wilks [facility] 1.2.840.114 350.1.13.10 4.2.7.2.686 [id number] 134 [id number] [facility] 2024-12-16 00:00:00 2024-12-17 15:02:30 Patient Secure Msg Wilks Kisha Vika [facility] 1.2.840.114 350.1.13.10 4.2.7.2.686 [id number] 134 [id number] [facility] 2024-12-15 15:30:00 2024-12-15 15:37:24 Nurse Visit R Nurse, [facility] Ely Drummond [facility] 1.2.840.114 350.1.13.10 4.2.7.2.686 [id number] [facility] 2024-12-12 14:11:00 2024-12-12 17:48:00 Emergency X Radha Antonio [facility] 1.2.840.114 350.1.13.10 4.2.7.2.686 [id number] [id number] [facility] 2024-12-11 09:30:00 2024-12-11 09:30:00 Outpatient R KISHA WILKS [facility] [id number] [facility] 2024-12-10 15:15:00 2024-12-10 15:50:09 Routine Visit R KISHA WILKS [facility] 1.2.840.114 350.1.13.10 4.2.7.2.686 [id number] 134 [id number] [facility] 2024-12-03 12:00:00 2024-12-03 13:44:05 Crystal Grinder Visit KISHA CHICAS [facility] 1.2.840.114 350.1.13.10 4.2.7.2.686 [id number] [facility] 2024-11-30 00:00:00 2024-12-02 08:54:04 Patient Secure Msg [facility] SPECIAL[facility] C[facility] 1.2.840.114 350.1.13.10 4.2.7.2.686 [id number] 134 [id number] [facility] 2024-11-26 16:00:00 2024-11-26 16:57:15 Routine Visit R KISHA WILKS [facility] 1.2.840.114 350.1.13.10 4.2.7.2.686 [id number] 134 [id number] [facility] 2024-10-14 00:00:00 2024-11-16 18:42:26 Patient Secure Msg Alyssa Wilksian Vika [facility] 1.2.840.114 350.1.13.10 4.2.7.2.686 [id number] 134 [id number] [facility] 2024-11-12 00:00:00 2024-11-12 09:17:03 Patient Secure Msg Kisha Wilks [facility] 1.2840.114 350.1.13.10 4.2.7.2.686 [id number] 134 [id number] [facility] 2024-10-04 00:00:00 2024-11-09 18:28:04 Patient Secure Msg Maggie Johnson [facility] 1.2840.114 350.1.13.10 4.2.7.2.686 [id number] 370 [id number] [facility] 2024-10-04 00:00:00 2024-11-09 18:26:51 Patient Secure Msg Doctor Unassigned, Gilberts Doctor Unassigned, Gilberts [facility] 1.840.114 350.1.13.10 4.2.7.2.686 [id number] 370 [id number] [facility] 2024-11-08 11:45:00 2024-11-08 13:04:01 Crystal Grinder Visit R SHYLA BARAHONA, [facility] 1..114 350.1.13.10 4.2.7.2.686 [id number] 353 [id number] [facility] 2024-11-08 10:30:00 2024-11-08 11:23:17 Crystal Grinder Visit Nat Sage Shannon M [facility] [employer] [facility] 1.840.114 350.1.13.10 4.2.7.2.686 [id number] [facility] 2024-11-05 00:00:00 2024-11-06 15:17:45 Patient Secure Msg Kisha Wilks [facility] 1.2840.114 350.1.13.10 4.2.7.2.686 [id number] 134 [id number] [facility] 2024-10-28 00:00:00 2024-10-30 02:06:26 Orders Only Doctor Unassigned, Gilberts Doctor Unassigned, Gilberts [facility] 1.2.840.114 350.1.13.10 4.2.7.2.686 [id number] [facility] 2024-10-29 08:00:00 2024-10-29 08:03:31 Routine Visit R AdKisha ling [facility] 1.2.840.114 350.1.13.10 4.2.7.2.686 [id number] 134 [id number] [facility] 2024-10-21 00:00:00 2024-10-24 11:32:13 Telephone Adaniyah Kisha Sandy [facility] BUILD[facility] 1.2.840.114 350.1.13.10 4.2.7.2.686 [id number] 134 [id number] [facility] 2024-09-12 00:00:00 2024-10-19 18:30:39 Patient Secure Msg Jf Becerra [facility] BU[facility] 1.2.840.114 350.1.13.10 4.2.7.2.686 [id number] 059 [id number] [facility] 2024-10-17 00:00:00 2024-10-17 09:47:13 Patient Secure Msg AdKisha ling [facility] 1.2.840.114 350.1.13.10 4.2.7.2.686 [id number] 134 [id number] [facility] 2024-10-16 00:00:00 2024-10-17 02:04:29 Orders Only Doctor Unassigned, Gilberts Doctor Unassigned, Gilberts [facility] 1.2.840.114 350.1.13.10 4.2.7.2.686 [id number] [facility] 2024-10-15 00:00:00 2024-10-15 16:26:47 Telephone AdKisha ling [facility] GINA LÓPEZ [facility] 1.2.840.114 350.1.13.10 4.2.7.2.686 [id number] 134 [id number] [facility] 2024-10-15 00:00:00 2024-10-15 12:02:23 Telephone AdKisha ling [facility] 1.2.840.114 350.1.13.10 4.2.7.2.686 [id number] 134 [id number] [facility] 2024-10-14 19:00:00 2024-10-14 19:47:26 Urgent Care R Fabi Hoffmann, Attending [facility] 1.2.840.114 350.1.13.10 4.2.7.2.686 [id number] 370 [id number] [facility] 2024-10-03 00:00:00 2024-10-03 17:15:05 Telephone Maggie Johnson [facility] 1.2.840.114 350.1.13.10 4.2.7.2.686 [id number] [facility] 2024-10-02 16:40:00 2024-10-02 17:14:57 Urgent Care R MAGGIE JOHNSON [facility] 1.2.840.114 350.1.13.10 4.2.7.2.686 [id number] 370 [id number] [facility] 2024-10-02 00:00:00 2024-10-02 15:43:09 Patient Secure Msg AdKisha ling [facility] 1.2.840.114 350.1.13.10 4.2.7.2.686 [id number] 134 [id number] [facility] 2024-10-02 00:00:00 2024-10-02 14:54:35 Patient Secure Msg AdKisha ling [facility] 1.2.840.114 350.1.13.10 4.2.7.2.686 [id number] 134 [id number] [facility] 2024-10-02 00:00:00 2024-10-02 14:51:39 [facility] 1.2.840.114 350.1.13.10 4.2.7.2.686 [id number] 134 [id number] [facility] 2024-10-01 00:00:00 2024-10-01 14:59:02 Patient Secure Msg [facility] 1.2.840.114 350.1.13.10 4.2.7.2.686 [id number] 134 [id number] [facility] 2024-10-01 00:00:00 2024-10-01 14:49:29 Patient Secure Msg [facility] 1.2.840.114 350.1.13.10 4.2.7.2.686 [id number] 134 [id number] [facility] 2024-10-01 11:15:00 2024-10-01 11:54:12 [facility] 1.2.840.114 350.1.13.10 4.2.7.2.686 [id number] 134 [id number] [facility] 2024-09-30 00:00:00 2024-09-30 09:17:30 Patient Secure Msg [facility] 1.2.840.114 350.1.13.10 4.2.7.2.686 [id number] 134 [id number] [facility] 2024-09-29 00:00:00 2024-09-30 08:37:51 Patient Secure Msg AdKisha ling [facility] 1.2.840.114 350.1.13.10 4.2.7.2.686 [id number] 134 [id number] [facility] 2024-08-23 00:00:00 2024-09-28 18:25:54 Patient Secure Msg AdKisha ling [facility] 1.2.840.114 350.1.13.10 4.2.7.2.686 [id number] [facility] 2024-09-24 00:00:00 2024-09-25 02:04:30 Orders Only Doctor Unassigned, Gilberts Doctor Unassigned, Gilberts [facility] 1.2.840.114 350.1.13.10 4.2.7.2.686 [id number] [facility] 2024-08-21 00:00:00 2024-09-21 18:19:04 Patient Secure M[facility] 1.2.840.114 350.1.13.10 4.2.7.2.686 [id number] 134 [id number] [facility] 2024-09-19 00:00:00 2024-09-19 15:01:10 Telephone AdumKisha [facility] 1.2.840.114 350.1.13.10 4.2.7.2.686 [id number] 134 [id number] [facility] 2024-09-12 07:47:05 2024-09-12 23:59:00 Hospital Encounter R JF BECERRA [facility] 1.2.840.114 350.1.13.10 4.2.7.2.686 [id number] [facility] 2024-09-12 00:00:00 2024-09-12 09:31:46 Telephone Kisha Wilks [facility] 1.2840.114 350.1.13.10 4.2.7.2.686 [id number] 134 [id number] [facility] 2024-09-12 00:00:00 2024-09-12 09:19:40 Telephone Kisha Wilks [facility] 1.20.114 350.1.13.10 4.2.7.2.686 [id number] 134 [id number] [facility] 2024-09-12 08:00:00 2024-09-12 08:00:00 Outpatient JF PAGE [facility] [id number] [facility] 2024-09-03 13:00:00 2024-09-03 13:00:00 Crystal Grinder Visit Sai Stafford Vivian L Lab, Ang - Db [facility] 1.114 350.1.13.10 4.2.7.2.686 [id number] [facility] 2024-09-03 11:15:00 2024-09-03 11:41:21 Routine Visit Kisha Chicas [facility] 1.20.114 350.1.13.10 4.2.7.2.686 [id number] 134 [id number] [facility] 2024-09-03 11:00:00 2024-09-03 11:00:00 Outpatient KISHA CHICAS KISHA [facility] [id number] [facility] 2024-08-26 00:00:00 2024-09-01 19:48:57 Telephone [facility] 1.0.114 350.1.13.10 4.2.7.2.686 [id number] 134 [id number] [facility] 2024-08-28 15:00:00 2024-08-28 15:36:14 [facility] [id number] 2024-08-28 15:00:00 2024-08-28 15:36:14 [facility] 1.2.840.114 350.1.13.10 4.2.7.2.686 [id number] [facility] 2024-08-21 11:15:00 2024-08-21 11:26:50 Outpatient R KISHA WILKS VIVIAN [facility] [id number] [facility] 2024-08-21 11:15:00 2024-08-21 11:26:50 Routine Visit Kisha Wilks [facility] 1.2.840.114 350.1.13.10 4.2.7.2.686 [id number] 134 [id number] [facility] 2024-08-09 00:00:00 2024-08-15 08:25:45 Telephone Kisha Wilks [facility] 1.2.840.114 350.1.13.10 4.2.7.2.686 [id number] 134 [id number] [facility] 2024-08-14 22:56:00 2024-08-15 00:24:00 Emergency X TATA ANGELES SANDRA [facility] ERT [id number] [facility] 2024-08-14 22:56:00 2024-08-15 00:24:00 Emergency X TATA ANGELES SANDRA [facility] ERT [id number] [facility] 2024-08-06 17:00:00 2024-08-06 17:15:00 Crystal Grinder Visit Lab, Kisha Johnson, Sai Smith [facility] 1.2.840.114 350.1.13.10 4.2.7.2.686 [id number] [facility] 2024-08-06 14:30:00 2024-08-06 15:52:31 Outpatient R KISHA WILKS [facility] [id number] [facility] 2024-08-06 14:30:00 2024-08-06 15:52:31 Initial Visit Kisha Wilks [facility] 1.2840.114 350.1.13.10 4.2.7.2.686 [id number] 134 [id number] [facility] 2023-12-20 00:00:00 2024-01-20 18:19:48 Patient Secure Msg Doctor Unassigned, [place]ber[place] Doctor Unassigned, Gilberts [facility] 1.2.840.114 350.1.13.10 4.2.7.2.686 [id number] 134 [id number] [facility] 2023-12-06 09:30:00 2023-12-06 10:01:21 Outpatient R STEPHY WIGGINS [facility] [id number] [facility] 2023-12-06 09:30:00 2023-12-06 10:01:21 Office Visit Stephy Wiggins [facility] BU[facility] 1.2.840.114 350.1.13.10 4.2.7.2.686 [id number] 134 [id number] [facility] 2023-05-31 00:00:00 2023-05-31 00:00:00 Miriam Mobley [facility] 1.2.840.114 350.1.13.10 4.2.7.2.686 [id number] 134 [id number] [facility] 2023-05-16 08:30:00 2023-05-16 08:30:00 Outpatient R STEPHY WIGGINS [facility] [id number] [facility] 2023-05-11 00:00:00 2023-05-11 00:00:00 Patient Secure Msg [facility]igg[facility] 1.20.114 350.1.13.10 4.2.7.2.686 [id number] 134 [id number] [facility] 2022-12-19 15:01:26 2022-12-19 15:01:26 Outpatient [facility] [id number] Tk [place] 2022-12-01 00:00:00 2022-12-01 00:00:00 Case Management Stephy Wiggins [facility] BUILDING 1..114 350.1.13.10 4.2.7.2.686 [id number] 134 [id number] [facility] 2022-11-28 09:30:00 2022-11-28 09:38:27 Outpatient R STEPHY WIGGINS [facility] [id number] [facility] 2022-11-28 09:30:00 2022-11-28 09:38:27 Office Visit Stephy Wiggins [facility] BUILD[facility] 1..114 350.1.13.10 4.2.7.2.686 [id number] 134 [id number] [facility] 2022-07-06 00:00:00 2022-07-06 00:00:00 Patient Secure g Shyla Mabry [facility] ..114 350.1.13.10 4.2.7.2.686 [id number] 134 [id number] [facility] 2022-07-05 00:00:00 2022-07-05 00:00:00 Case Management [facility] 1..114 350.1.13.10 4.2.7.2.686 [id number] 134 [id number] [facility] 2022-07-05 00:00:00 2022-07-05 00:00:00 Patient Secure Miriam Chamorro [facility] 1.2.840.114 350.1.13.10 4.2.7.2.686 [id number] 134 [id number] [facility] 2022-07-04 10:00:00 2022-07-04 10:53:46 [facility] [id number] 2022-07-04 10:00:00 2022-07-04 10:53:46 Office Visit Miriam Galan [facility] BUILD[facility] 1.2.840.114 350.1.13.10 4.2.7.2.686 [id number] 134 [id number] [facility] 2022-07-04 00:00:00 2022-07-04 00:00:00 [facility] 1.2.840.114 350.1.13.10 4.2.7.2.686 [id number] 134 [id number] [facility] 2022-05-25 08:00:00 2022-05-25 08:15:00 Nurse Visit Nurse, [facility] [facility] BUILDING 1.2.840.114 350.1.13.10 4.2.7.2.686 [id number] 134 [id number] [facility] 2022-05-25 08:00:00 2022-05-25 08:00:00 [facility] [id number] [facility] 2022-05-25 08:00:00 2022-05-25 08:00:00 Outpatient R [facility] [id number] [facility] 2022-02-02 13:00:00 2022-02-02 13:00:00 Office Visit Miriam Galan [facility] 1.2.840.114 350.1.13.10 4.2.7.2.686 [id number] 134 [id number] [facility] 2022-02-02 13:00:00 2022-02-02 11:48:47 [facility] [id number] [facility] 2022-02-01 00:00:00 2022-02-01 00:00:00 Patient Secure g Stephy Wiggins [facility] 1.2.840.114 350.1.13.10 4.2.7.2.686 [id number] 134 [id number] [facility] 2022-01-26 14:00:00 2022-01-26 14:00:00 [facility] [id number] [facility] 2022-01-26 14:00:00 2022-01-26 14:00:00 Nurse Visit Nurse, [facility] 1.2.840.114 350.1.13.10 4.2.7.2.686 [id number] 134 [id number] [facility] 2022-01-24 08:00:00 2022-01-24 08:00:00 Outpatient R [facility] [id number] [facility] 2021-11-29 00:00:00 2021-11-29 00:00:00 Outpatient Visit [id number] 2021-11-25 00:00:00 2021-11-25 00:00:00 Patient Secure MsStephy Lopes [facility] 1.2.840.114 350.1.13.10 4.2.7.2.686 [id number] 134 [id number] [facility] 2021-11-25 00:00:00 2021-11-25 00:00:00 [facility] BU[facility] 1.2.840.114 350.1.13.10 4.2.7.2.686 [id number] 134 [id number] [facility] 2021-11-24 00:00:00 2021-11-24 00:00:00 Patient Secure Msg Stephy Wiggins [facility] BUILDING 1.2.840.114 350.1.13.10 4.2.7.2.686 [id number] 134 [id number] [facility] 2021-11-24 00:00:00 2021-11-24 00:00:00 Case Management Miriam Galan [facility] BUILDING 1.2.840.114 350.1.13.10 4.2.7.2.686 [id number] 134 [id number] [facility] 2021-11-23 00:00:00 2021-11-23 00:00:00 Patient Secure Msg Stephy Wiggins [facility] BUILDING 1.2.840.114 350.1.13.10 4.2.7.2.686 [id number] 134 [id number] [facility] 2021-11-22 08:00:00 2021-11-22 09:06:55 Outpatient R STEPHY WIGGINS [facility] [id number] [facility] 2021-11-22 08:00:00 2021-11-22 09:06:55 Office Visit Stephy Wiggins [facility] BUILDING 1.2.840.114 350.1.13.10 4.2.7.2.686 [id number] 134 [id number] [facility] 2021-10-12 00:00:00 2021-10-12 00:00:00 Outpatient Visit [id number] 2021-01-20 14:16:03 2021-01-20 14:52:14 Office Visit [place] Miriam Wiggins Stephy [facility] 1.2.840.114 350.1.13.10 4.2.7.2.686 [id number] 134 [id number] [facility] 2021-01-20 14:30:00 2021-01-20 14:30:00 Outpatient STEPHY STONE [facility] [id number] [facility] 2021-01-14 00:00:00 2021-01-14 00:00:00 Patient Secure Stephy Clayton [facility] 1.2.840.114 350.1.13.10 4.2.7.2.686 [id number] 134 [id number] [facility] 2020-10-15 13:30:00 2020-10-15 13:30:00 Outpatient STEPHY STONE [facility] [id number] [facility] Results Test Description Test Time Test Comments Results Result Co mments Source [facility] [id number] 12:04:33* Test Item Value Reference Range Interpretation Comme nts CULTURE (NATHANAELANITA) (test code = 1095) A <10,000 col/m L Beta-hemolytic streptococcus group B, by serological groupingIf this patient is , please refer to ACOG guidelines for appropriate screening and management of colonized women. If your patient does not have signs or symptoms of UTI, it is recommended NOT to treat, with the exception of and prior to urologic procedures.Troponin [id number] 20:35:25* Test Item Value Reference Range Interpretation Comme nts TROPONIN I (test code = 2248667033) 0.013 ng/mL <=0.034 KAREN (test code = KAREN) Reference (Normal) Range (defined by the 99th percentile reference limit): <= 0.034 ng/mL Note: Cardiac troponin begins to rise 3-4 hours after the onset of ischemia. Repeat in 4-6 hours if the sample was drawn within 3-4 hours of the onset of the symptom and found normal. Diagnosis of myocardial injury is made with acute changes in cTn concentrations with at least one serial sample above the 99th percentile upper reference limit (URL), taken together with the patient's clinical presentation. Biotin has been reported to cause a negative bias, interpret results relative to patient's use of biotin. Lab Interpretation (test code = 36494-1) Normal [facility] Nsk-[id number] 20:33:08* Test Item Value Reference Range Interpretation Comme nts NT-proBNP (test code = 72755-6) 46 pg/mL <=125 Lab Interpretation (test cod e = 12846-6) Normal [facility] Met[facility] Panel (82485)2024-12-12 20:10:14* Test Item Value Reference Range Interpretation Comme nts NA (test code = 3254219236) 134 mmol/L 135-145 L K (test code = 9558290931) 4.1 mmol/L 3.5-5.0 CL (test code = 0472678966) 108 mmol/L 98-108 CO2 TOTAL (test code = 6706879987) 15 mmol/L 23-31 L AGAP (test code = 5541940450) 11 2-16 BUN (test code = 3588577503) 13 mg/dL 7-23 GLUCOSE (test code = 4292616634) 79 mg/dL 70-110 CREATININE (test code = 2160-0) 0.56 mg/dL 0.50-1.04 TOTAL BILI (test code = 9182371936) 0.6 mg/dL 0.1-1.1 CALCIUM (test code = 0294652720) 9.7 mg/dL 8.6-10.6 T PROTEIN (test code = 7767426835) 8.1 g/dL 6.3-8.2 ALBUMIN (test code = 4336523975) 4.2 g/dL 3.5-5.0 ALK PHOS (test code = 1808421275) 85 U/L 34-122 ALTv (test code = 1742-6) 18 U/L 5-35 AST(SGOT) (test code = 4905346504) 38 U/L 13-40 eGFR (test code = 86161-7) 132.5 mL/min/1.73m2 CKD-EPI eGFR (2020). Assuming creatinine has been stable day-to-day for at least three months, the eGFR indicates Category G1 (>= 90 mL/min/1.73 m2) Lab Interpretation (test code = 93471-2) Abnormal [facility] with [id number] 19:49:27* Test Item Value Reference Range Interpretation Comme nts WBC (test code = 6690-2) 10.96 4.30-11.10 RBC (test code = 789-8) 3.6 3.93-5.25 L HGB (test code = 718-7) 10.7 g/dL 11.6-15.0 L HCT (test code = 4544-3) 31.9 % 35.7-45.2 L MCV (test code = 787-2) 88.6 fL 80.6-95.5 MCH (test code = 785-6) 29.7 pg 25.9-32.8 MCHC (test code = 786-4) 33.5 g/dL 31.6-35.1 RDW-SD (test code = 57940-7) 37.1 fL 39.0-49.9 L RDW-CV (test code = 788-0) 11.5 % 12.0-15.5 L PLT (test code = 777-3) 194 166-358 MPV (test code = 53350-6) 11.2 fL 9.5-12.9 NRBC/100 WBC (test code = 8050697471) 0 0.0-10.0 NRBC x10^3 (test code = 6587115859) See_Comment [Automated messa ge] The system which generated this result transmitted reference range: 10*3/?L. The reference range was not used to interpret this result as normal/abnormal. GRAN MAT (NEUT) % (test code = 770-8) 76.9 % IMM GRAN % (test code = 5631285035) 0.5 % LYMPH % (test code = 736-9) 14.5 % MONO % (test code = 5905-5) 7.8 % EOS % (test code = 713-8) 0.2 % BASO % (test code = 706-2) 0.1 % GRAN MAT x10^3(ANC) (test code = 2529021908) 8.44 10*3/uL 1.88-7.09 H IMM GRAN x10^3 (test code = 5394794995) 0.05 10*3/uL 0.00-0.06 LYMPH x10^3 (test code = 731-0) 1.59 10*3/uL 1.32-3.29 MONO x10^3 (test code = 742-7) 0.85 10*3/uL 0.33-0.92 EOS x10^3 (test code = 711-2) 0.03-0.39 L BASO x10^3 (test code = 704-7) 0.01-0.07 Lab Interpretation (test code = 08272-7) Abnormal [facility] Urinalysis w/o Specific [id number] 19:52:00* Test Item Value Reference Range Interpretation Comme [...] = 3257) na Negative - [facility] [id number] 21:08:00* Test Item Value Reference Range Interpretation Comme [...] = 3257) na Negative - Negati ve [facility] Urinalysis w/o Specific Tjqguku6936-13-36 12:52:00* Test Item Value Reference Range Interpretation Comme nts POCT PH U (test code = 3254) N/A 5-8 POCT U LEUK EST (test code = 3263) N/A Negative - Negative POCT U NIT (test code = 3262) N/A Negative - Negati ve POCT U PROT (test code = 3259) Negative Negative - Negat mattie POCT U GLU (test code = 3256) Negative Negative - Negati ve POCT U KETONE (test code = 3258) N/A Negative - Neg ative POCT U BLD (test code = 3257) N/A Negative - Negati ve [facility]/SUPPLY [id number] 16:15:04 Ordered by an unspecified provider.[facility]/SUPPLY [id number] 16:53:48Ordered by an unspecified provider.[facility] Molecular [id number] 00:46:28* Test Item Value Reference Range Interpretation Comme nts POCT Molecular FluA (test co de = 32183-5) Negative Negative POCT Molecular FluB (test co de = 18373-1) Negative Negative Lab Interpretation (test cod e = 19599-9) Normal [facility] Molecular [id number] 00:29:33* Test Item Value Reference Range Interpretation Comme nts SARS-CoV-2 Rapid ID NOW (test code = 71401-5) Positive Not Detected A KAREN (test code = KAREN) ID NOW COVID-19 As say is an isothermal nucleic acid amplification test intended for the qualitative detection of nucleic acid from SARS-CoV-2 viral RNA in nasopharyngeal (DIGITAL ANALYTICS MANAGER) specimens. It is used under Emergency Use Authorization (EUA) by FDA. The limit of detection (LOD) of the assay is 125 Genome Equivalents/mL. Please note that a new specimen is requested for testing, if clinically indicated, on tests performed past validated specimen stability time. A positive result is indicative of the presence of SARS-CoV-2 RNA. ?Clinical correlation with patient history and other diagnostic information is necessary to determine patient infection status. A negative (Not Detected) result does not preclude SARS-CoV-2 infection. In patients with a high suspicion of SARS-CoV-2 infection, negative results should be treated as presumptive negative and a new specimen should be tested with alternative nucleic acid amplification molecular test. Indeterminate: Unable to generate a valid test result on this specimen. ?Please collect a new specimen for repeat testing if clinically indicated. Lab Interpretation (test code = 67677-1) Abnormal [facility] MOLECULAR [id number] 00:24:59* Test Item Value Reference Range Interpretation Comme nts POCT Molecular Strep (test c ode = 75488-0) Negative Negative Lab Interpretation (test cod e = 36256-2) Normal [facility] Urinalysis W Specific [id number] 21:52:00* Test Item Value Reference Range Interpretation Comme nts POCT U SP GRAV (test code = 3255) 1.02 mg/dl 1.005-1.025 POCT PH U (test code = 3254) 6 mg/dl 5-8 POCT U LEUK EST (test code = 3263) ++ Negative - Negative POCT U NIT (test code = 3262) neg Negative - Negati ve POCT U PROT (test code = 3259) trace Negative - Negative POCT U GLU (test code = 3256) normal Negative - Negati ve POCT U KETONE (test code = 3258) neg Negative - Negative POCT U UROBILI (test code = 3260) normal 0.2-1 POCT U BILI (test code = 3261) neg Negative - Negative POCT U BLD (test code = 3257) trace Negative - Negati ve POCT U COLOR (test code = 3266) dark yellow POCT U APPEAR (test code = 3267) hazy [facility] Urinalysis w/o Specific [id number] 16:45:00* Test Item Value Reference Range Interpretation Comme [...] = 3257) na Negative - Negati ve [facility] [id number] 16:25:43 Ordered by an unspecified provider.[facility] Transthoracic echo (TTE)2024-09-12 18:09:12* Test Item Value Reference Range Interpretation Comme nts Height (test code = 8832630381) 67 in Weight (test code = 1955157106) 126 lbs Systolic BP (test code = 3247217510) 108 mmHg Diastolic BP (test code = 2940933831) 68 mmHg Heart Rate (test code = 3990330454) 82 bpm EF(Teich) (test code = 7050923926) 71.1 % LVIDD (test code = 6193865258) 4 cm LVIDS (test code = 1526411333) 2.4 cm Left Ventricular End Systolic Volume by Teichholz Method (test code = 7391126) 20.2 mL Left Ventricular End Diastolic Volume by Teichholz Method (test code = 4938002) 70 mL IVS (test code = 9771244750) 1 cm LVPWD (test code = 8912427698) 1 cm LVOT diameter (test code = 5962956144) 2.09 cm LVOT area (test code = 4962391092) 3.4 cm2 FS (test code = 7423292310) 40 % LV RWT (test code = 3812204435) 0.5 LV mass (test code = 4635086457) 127.06 g LA size (test code = 7458462995) 3.1 cm RV-lee basal d (test code = 9990157790) 3.2 cm RVOT diameter (test code = 5474484647) 3 cm RV-lee mid d (test code = 1455311723) 2.4 cm RVOT Proximal Diameter (test code = 9107916329) 2.35 cm ACS (test code = 6258398381) 2.17 cm Ao root diam (test code = 1650141678) 3.2 cm RVOT area (test code = 4119637197) 7.07 cm2 Aortic root (test code = 3746928105) 3.2 cm Ao root annulus (test code = 7367420739) 3.2 cm PW (test code = 3879852799) 1 cm 0.6-1.1 EF - 2D (test code = 48371696) 71.1 % Interventricular Septum Diastolic Thickness by 2D (test code = 3567785) 1 cm LV Mass Index (test code = 2804485557) 76.5 g/m2 BSA (test code = 3739208999) 1.66 m2 E wave decelartion time (test code = 3649134263) 0.2 s MV Peak E Chevy (test code = 4014139756) 108.5 cm/s MV Peak A Chevy (test code = 8743148529) 58.6 cm/s E/A ratio (test code = 1842813289) 1.85 ratio MV Prop V (test code = 1283625106) 111 cm/s TR Peak Chevy (test code = 2566139462) 151.4 cm/s Triscuspid Valve Regurgitation Peak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
[2025-01-04] MEDS ORDERED: ACETAMINOPHEN 500 MG TAB ONE (20:04)
--- NOTE | 2025-01-04 21:20 | RAD REPORT ---
EXAMINATION: US BILATERAL LOWER EXTREMITY VENOUS DOPPLER CLINICAL INDICATION: PAIN TECHNIQUE: Complete bilateral duplex sonography of the BILATERAL lower extremity veins was performed. The examination included compression for vein patency, color Doppler imaging and flow augmentation in response to distal compression of the distal external iliac, common femoral, femoral, popliteal, t ibial, and great and small saphenous veins. COMPARISON: No prior exam. FINDINGS: Duplex sonography testing of the veins of the BILATERAL lower extremity was performed. Color flow sarahi ging shows all veins to be compressible with [id number] color filling. Pulsatile and phasic flow is present within all lower extremity deep and superficial veins examined. IMPRESSION: There is no deep vein or superficial vein thrombosis.
--- NOTE | 2025-01-04 22:10 | EDPHYS ---
Physician Documentation [facility] Name: Digna Gonzalez Age: 24 yrs Sex: Female : 2000 Arrival Date: 01/04/2025 Time: 19:15 Bed 13 Private MD: ED Physician Vivek Granado HPI: 01/04 20:10 This 24 yrs old Black Female presents to ER via Ambulatory with complaints of Leg cp cramping/ 8 months preg. 20:10 The patient presents with pain, that is acute. The complaints affect the left leg and cp right leg. 20:10 Context: resulted from an unknown cause. cp EVENTS DIRECTOR: 20:09 1, Full Term 0, Premature 0, 0, Living 0, Verified ss12 Historical: - Allergies: 19:50 No Known Allergies; kb4 - PMHx: 19:50 None; kb4 - PSHx: 19:50 None; kb4 - Immunization history:: Adult Immunizations up to date. - Infectious Disease History:: Denies. - Social history:: Smoking status: Patient denies any tobacco usage or history of. Vital Signs: 19:48 BP 138 / 93; Pulse 93; Resp 16; Temp 97.8; Pulse Ox 100% on R/A; Weight 66.22 kg; kb4 Height 5 ft. 7 in. ; 21:00 BP 118 / 77; Pulse 85; Resp 16; Pulse Ox 100% on R/A; ss12 22:17 BP 112 / 72; Pulse 85; Resp 16; Pulse Ox 100% on R/A; ss12 19:48 Body Mass Index 22.87 (66.22 kg, 170.18 cm) kb4 MDM: 19:57 Medical Screening Exam initiated cp 01/04 20:00 Order name: US Extremity Venous W Compression Butch; Complete Time: 21:37 cp 01/04 21:37 Interpretation: Report reviewed. cp 01/04 21:39 Order name: FHT's; Complete Time: 22:51 cp Administered Medications: 20:07 Not Given (Patient Refused): [id number] mg PO once ss12 Disposition Summary: 01/04/25 22:09 Discharge Ordered Notes: Location: Home cp Problem: new cp Symptoms: have improved cp Condition: Stable cp Diagnosis - Cramp and spasm - lower extremities cp Followup: cp - With: Private Physician - When: 2 - 3 days - Reason: Recheck today's complaints Discharge Instructions: - Discharge Summary Sheet cp - Dehydration, Adult cp - Leg Cramps cp - Muscle Cramps and Spasms cp - Rehydration, Adult cp Forms: - Medication Reconciliation Form cp - Antibiotic Education cp - Prescription Opioid Use cp - Patient Portal Instructions cp - Leadership Thank You Letter cp - Work release form ss12 Addendum: 01/06/2025 07:13 Co-signature as Attending Physician, Vivek Granado DO I reviewed the patient's care t t7 provided by the Advanced Practice Provider and agree with the diagnosis and treatment plan. Signatures: Dispatcher [employer] EDMS Seferino Villa PA-C PA-C cp Bowen, Kayla, RN RN kb4 Vivek Granado DO DO tt7 Ly Modi RN ss12 Corrections: (The following items were deleted from the chart) 01/04 20:01 20:01 Extrem Venous W Compression Butch+[id number] ordered. EDCT EDMS
--- NOTE | 2025-01-04 22:10 | ER ---
Nurse's Notes [facility] Name: Digna Gonzalez Age: 24 yrs Sex: Female : 2000 Arrival Date: 01/04/2025 Time: 19:15 Bed 13 Private MD: Diagnosis: Cramp and spasm-lower extremities Presentation: 01/04 19:48 Chief complaint: Patient states: c/o leg cramps and swelling in both legs constantly kb4 for the past 2-3 days. pain 7/10. Coronavirus screen: At this time, the client does not indicate any symptoms associated with coronavirus-19. Ebola Screen: No symptoms or risks identified at this time. Initial Sepsis Screen: Does the patient meet any 2 criteria? HR > 90 bpm. No. Patient's initial sepsis screen is negative. Does the patient have a suspected source of infection? No. Patient's initial sepsis screen is negative. Risk Assessment: Do you want to hurt yourself or someone else? Patient reports no desire to harm self or others. Onset of symptoms was January 01, 2025. 19:48 Method Of Arrival: Ambulatory kb4 19:48 Acuity: BALTAZAR 3 kb4 19:51 Note patient 8 months . keeps up with care, last seen OB 1 week ago. kb4 Triage Assessment: 19:50 General: Appears in no apparent distress. comfortable, Behavior is calm, cooperative. kb4 Pain: Complains of pain in right leg and left leg Pain currently is 7 out of 10 on a pain scale. Neuro: Level of Consciousness is awake, alert, obeys commands, Oriented to person, place, time, situation. Cardiovascular: Capillary refill < 3 seconds Patient's skin is warm and dry. Respiratory: Airway is patent Respiratory effort is even, unlabored, Respiratory pattern is regular, symmetrical. GI: patient 8 months . : No signs and/or symptoms were reported regarding the genitourinary system. Derm: Skin is intact, is healthy with good turgor, Skin is pink, warm \T\ dry. normal. Musculoskeletal: Circulation, motion, and sensation intact. Range of motion: intact in all extremities. WO[employer] FLOUR MILLER: 20:09 1, Full Term 0, Premature 0, 0, Living 0, Verified ss12 Historical: - Allergies: 19:50 No Known Allergies; kb4 - PMHx: 19:50 None; kb4 - PSHx: 19:50 None; kb4 - Immunization history:: Adult Immunizations up to date. - Infectious Disease History:: Denies. - Social history:: Smoking status: Patient denies any tobacco usage or history of. Screenin:08 [facility] ED Fall Risk Assessment (Adult) History of falling in the last 3 months, ss12 including since admission No falls in past 3 months (0 pts) Confusion or Disorientation No (0 pts) Intoxicated or Sedated No (0 pts) Impaired Gait No (0 pts) Mobility Assist Device Used No (0 pt) Altered Elimination No (0 pt) Score/Fall Risk Level 0 - 2 = Low Risk Oriented to surroundings, Maintained a safe environment, Educated pt \T\ family on fall prevention, incl call for assistance when getting out of bed, Assessed \T\ reinforced patient's understanding of fall precautions, Provided non-skid footwear. Abuse screen: Denies threats or abuse. Denies injuries from another. Nutritional screening: No deficits noted. Tuberculosis screening: No symptoms or risk factors identified. Assessment: 20:35 General: Appears in no apparent distress. comfortable, Behavior is calm, cooperative, ss12 quiet. Pain: Denies pain. Neuro: No deficits noted. Level of Consciousness is awake, alert, obeys commands, Oriented to person, place, time, situation. Cardiovascular: No deficits noted. Reports None. Cardiovascular: Capillary refill < 3 seconds Patient's skin is warm and dry. Respiratory: No deficits noted. Airway is patent Respiratory effort is even, unlabored, Respiratory pattern is regular, symmetrical. GI: No deficits noted. No signs and/or symptoms were reported involving the gastrointestinal system. : No deficits noted. No signs and/or symptoms were reported regarding the genitourinary system. EENT: No deficits noted. No signs and/or symptoms were reported regarding the EENT system. Derm: No deficits noted. No signs and/or symptoms reported regarding the dermatologic system. Musculoskeletal: Reports cramps in lower legs and edema. no edema noted upon assessment. 21:15 Reassessment: Patient appears in no apparent distress at this time. Patient and/or ss12 family updated on plan of care and expected duration. Pain level reassessed. Patient is alert, oriented x 3, equal unlabored respirations, skin warm/dry/pink. 22:14 Reassessment: Patient appears in no apparent distress at this time. Patient and/or ss12 family updated on plan of care and expected duration. Pain level reassessed. Patient is alert, oriented x 3, equal unlabored respirations, skin warm/dry/pink. Vital Signs: 19:48 BP 138 / 93; Pulse 93; Resp 16; Temp 97.8; Pulse Ox 100% on R/A; Weight 66.22 kg; kb4 Height 5 ft. 7 in. ; 21:00 BP 118 / 77; Pulse 85; Resp 16; Pulse Ox 100% on R/A; ss12 22:17 BP 112 / 72; Pulse 85; Resp 16; Pulse Ox 100% on R/A; ss12 19:48 Body Mass Index 22.87 (66.22 kg, 170.18 cm) kb4 Vitals: 22:14 Heart Tones 160. ss12 ED Course: 19:19 Patient arrived in ED. [facility] 19:27 Seferino Villa PA-C [facility]. cp 19:27 Vivek Granado DO is Attending Physician. cp 19:49 Triage completed. kb4 19:51 Arm band placed on right wrist. Patient placed in the treatment room, in view of staff kb4 members, on pulse oximetry. 19:53 Ly Modi, RN is Primary Nurse. ss12 20:08 No provider procedures requiring assistance completed. ss12 20:09 Patient has correct armband on for positive identification. Provided Education on: plan ss12 of care. 21:16 US Extremity Venous W Compression Butch In Process Unspecified. EDMS 22:50 Patient did not have IV access during this emergency room visit. ss12 Administered Medications: 20:07 Not Given (Patient Refused): [id number] mg PO once ss12 Medication: 20:09 VIS not applicable for this client. ss12 Outcome: 22:09 Discharge ordered by . cp 22:17 Discharged to home ambulatory, 12 22:17 Condition: stable 22:17 Discharge instructions given to patient, family, Instructed on discharge instructions, follow up and referral plans. Demonstrated understanding of instructions, follow-up care, 22:50 Patient left the ED. 12 Signatures: Dispatcher [employer] [facility] Seferino Villa PA-C PA-C cp Mitchell, Ginger gm2 Joan Chowdary, RN RN kb4 Ly Modi, RAS RN ss12 Corrections: (The following items were deleted from the chart) 22:50 22:49 BP 112 / 72; Pulse 85bpm; Resp 16bpm; Pulse Ox 100% RA; ss12 ss12
[2025-01-04 22:56] VITALS: TEMP 97.8; O2SAT 100
[2025-01-04 23:00] VITALS: BP 112/72
== END 2025-01-04 22:50 | disposition home or self-care (01) ==
LOC: ER 19:15
DX: R25.2 Cramp and spasm (principal)
CPT/HCPCS: 93970; 99283